=== PATIENT | female | born 1935 | race Caucasian/White ===

== ENCOUNTER 2017-08-05 12:15 | Inpatient (IN) | payer MEDICARE, BC ==
--- NOTE | 2017-08-05 12:21 | ED ---
General Adult HPI - General Stated complaint: Altered Mental Status Time Seen by Provider: 08/05/17 12:18 Source: RN notes reviewed, old records reviewed - History of Present Illness Initial comments: This is a 81-year-old female here for evaluation. Patient coming in for eval duration of unresponsiveness. Patient is medical history significant for dementia, but usually is fully interactive. Been going downhill for a few days with a recent fall decreased appetite last night. Today symptoms are much worse this patient didn't want a function in her normal daily environment. The patient is unable to give history history of patient's chart and transfer paper work - Related Data Home Medications Medication Instructions Recorded Confirmed ALPRAZolam [Xanax] 0.5 mg PO TID 08/05/17 08/05/17 Aspirin EC [Ecotrin Low Dose] 81 mg PO HS 08/05/17 08/05/17 Calcium Carbonate [Calcium] 600 mg PO DAILY 08/05/17 08/05/17 Gabapentin [Neurontin] 300 mg PO DAILY 08/05/17 08/05/17 HYDROcodone/APAP 10-325MG [[place] 1 tab PO TID PRN 08/05/17 08/05/17 10-325] Ibuprofen [Motrin] 600 mg PO BID 08/05/17 08/05/17 Memantine HCl/Donepezil HCl 1 cap PO DAILY 08/05/17 08/05/17 [Namzaric 28 mg-10 mg Capsule] Metoprolol Succinate (ER) [Toprol 25 mg PO DAILY 08/05/17 08/05/17 Xl] Multivitamins, Thera [Multivitamin 1 tab PO DAILY 08/05/17 08/05/17 (formulary)] Omeprazole 20 mg PO DAILY 08/05/17 08/05/17 Ranitidine HCl [Zantac] 150 mg PO DAILY@1600 08/05/17 08/05/17 amLODIPine [Norvasc] 5 mg PO DAILY 08/05/17 08/05/17 busPIRone HCL 15 mg PO TID 08/05/17 08/05/17 traZODone HCL [Desyrel] 50 mg PO HS 08/05/17 08/05/17 Allergies Allergy/AdvReac Type Severity Reaction Status Date / Time No Known Allergies Allergy Unverified 08/05/17 13:10 Review of Systems ROS Statement: Those systems with pertinent positive or pertinent negative responses have been documented in the HPI. ROS Other: All systems not noted in ROS Statement are negative. General Exam General appearance: alert, in no apparent distress, anxious Head exam: Present: atraumatic, normocephalic, normal inspection Eye exam: Present: normal appearance, PERRL, EOMI. Absent: scleral icterus, conjunctival injection, periorbital swelling ENT exam: Present: normal exam, mucous membranes moist Neck exam: Present: normal inspection. Absent: tenderness, meningismus, lymphadenopathy Respiratory exam: Present: normal lung sounds bilaterally. Absent: respiratory distress, wheezes, rales, rhonchi, stridor Cardiovascular Exam: Present: regular rate, normal rhythm, normal heart sounds. Absent: systolic murmur, diastolic murmur, rubs, gallop, clicks GI/Abdominal exam: Present: soft, normal bowel sounds. Absent: distended, tenderness, guarding, rebound, rigid Extremities exam: Present: normal inspection, full ROM, normal capillary refill. Absent: tenderness, pedal edema, joint swelling, calf tenderness Back exam: Present: normal inspection Neurological exam: Present: alert, oriented X3, CN II-XII intact Psychiatric exam: Present: normal affect, normal mood Skin exam: Present: warm, dry, intact, normal color. Absent: rash Course Vital Signs 08/05/17 08/05/17 08/05/17 12:17 13:04 14:00 Temperature 99.9 F H Pulse Rate 104 H 101 H 99 Respiratory 18 16 12 Rate Blood Pressure 115/57 121/59 O2 Sat by Pulse 88 L 91 L Oximetry - Reevaluation(s) Reevaluation #1: 08/05/17 14:58 Spoke patient's family regarding clinical condition, the erupted regarding prognosis. Questions are answered Reevaluation #2: 08/05/17 14:59 Patient showing mild improvement clinically likely just secondary to IV hydration EKG Findings - EKG Comments: EKG Findings:: EKG shows normal sinus Castaneda him a copula 56, QRS 74, QTC 426 Medical Decision Making - Medical Decision Making 9-year-old female the ER for evaluation. Altered mental status. Patient is found to have bowel perforation, patient also with pneumonia likely aspirational , patient to be admitted for cardiopulmonary resuscitation and hemodynamic monitoring. - Lab Data Result diagrams: 08/05/17 12:50 08/05/17 12:50 Lab Results 08/05/17 08/05/17 08/05/17 Range/Units 12:50 12:50 12:50 WBC 9.9 (3.8-10.6) k/uL RBC 3.74 L (3.80-5.40) m/uL Hgb 11.6 (11.4-16.0) gm/dL Hct 35.5 (34.0-46.0) % MCV 94.8 (80.0-100.0) fL MCH 31.0 (25.0-35.0) pg MCHC 32.7 (31.0-37.0) g/dL RDW 14.1 (11.5-15.5) % Plt Count 312 (150-450) k/uL Neutrophils % [employer]SEMBLING F[employer]RIC[employer] Neutrophils % (Manual) 80 % Band Neutrophils % 12 % Lymphocytes % ASSEMBLING FABRICATOR Lymphocytes % (Manual) 5 % Monocytes % ASSEMBLING FABRICATOR Monocytes % (Manual) 2 % Eosinophils % ASSEMBLING FABRICATOR Basophils % ASSEMBLING FABRICATOR Metamyelocytes % 2 % Neutrophils # ASSEMBLING FABRICATOR Neutrophils # (Manual) 9.10 H (1.3-7.7) k/uL Lymphocytes # ASSEMBLING FABRICATOR Lymphocytes # (Manual) 0.50 L (1.0-4.8) k/uL Monocytes # ASSEMBLING FABRICATOR Monocytes # (Manual) 0.20 (0-1.0) k/uL Eosinophils # ASSEMBLING FABRICATOR Basophils # ASSEMBLING FABRICATOR Metamyelocytes # (Man) 0.20 H (0) k/uL Nucleated RBCs 0 (0-0) /100 WBC Manual Slide Review Performed Toxic Vacuolation Present PT (9.0-12.0) sec INR (<1.2) APTT (22.0-30.0) sec Sodium 135 L (137-145) mmol/L Potassium 4.1 (3.5-5.1) mmol/L Chloride 102 (98-107) mmol/L Carbon Dioxide 21 L (22-30) mmol/L Anion Gap 12 mmol/L BUN 31 H (7-17) mg/dL Creatinine 0.88 (0.52-1.04) mg/dL Est GFR (MDRD) Af Amer >60 (>60 ml/min/1.73 sqM) Est GFR (MDRD) Non-Af >60 (>60 ml/min/1.73 sqM) Glucose 121 H (74-99) mg/dL Plasma Lactic Acid Bennie (0.7-2.0) mmol/L Calcium 8.8 (8.4-10.2) mg/dL Phosphorus 3.8 (2.5-4.5) mg/dL Magnesium 2.2 (1.6-2.3) mg/dL Total Bilirubin 0.5 (0.2-1.3) mg/dL AST 34 (14-36) U/L ALT 33 (9-52) U/L Alkaline Phosphatase 83 (38-126) U/L Total Creatine Kinase 730 H (30-135) U/L CK-MB (CK-2) 1.6 (0.0-2.4) ng/mL CK-MB (CK-2) Rel Index 0.2 Troponin I <0.012 (0.000-0.034) ng/mL Total Protein 5.7 L (6.3-8.2) g/dL Albumin 3.0 L (3.5-5.0) g/dL TSH 0.552 (0.465-4.680) mIU/L 08/05/17 08/05/17 Range/Units 12:50 12:50 WBC (3.8-10.6) k/uL RBC (3.80-5.40) m/uL Hgb (11.4-16.0) gm/dL Hct (34.0-46.0) % MCV (80.0-100.0) fL MCH (25.0-35.0) pg MCHC (31.0-37.0) g/dL RDW (11.5-15.5) % Plt Count (150-450) k/uL Neutrophils % Neutrophils % (Manual) % Band Neutrophils % % Lymphocytes % Lymphocytes % (Manual) % Monocytes % Monocytes % (Manual) % Eosinophils % Basophils % Metamyelocytes % % Neutrophils # Neutrophils # (Manual) (1.3-7.7) k/uL Lymphocytes # Lymphocytes # (Manual) (1.0-4.8) k/uL Monocytes # Monocytes # (Manual) (0-1.0) k/uL Eosinophils # Basophils # Metamyelocytes # (Man) (0) k/uL Nucleated RBCs (0-0) /100 WBC Manual Slide Review Toxic Vacuolation PT 10.1 (9.0-12.0) sec INR 1.0 (<1.2) APTT 23.7 (22.0-30.0) sec Sodium (137-145) mmol/L Potassium (3.5-5.1) mmol/L Chloride (98-107) mmol/L Carbon Dioxide (22-30) mmol/L Anion Gap mmol/L BUN (7-17) mg/dL Creatinine (0.52-1.04) mg/dL Est GFR (MDRD) Af Amer (>60 ml/min/1.73 sqM) Est GFR (MDRD) Non-Af (>60 ml/min/1.73 sqM) Glucose (74-99) mg/dL Plasma Lactic Acid Bennie 1.3 (0.7-2.0) mmol/L Calcium (8.4-10.2) mg/dL Phosphorus (2.5-4.5) mg/dL Magnesium (1.6-2.3) mg/dL Total Bilirubin (0.2-1.3) mg/dL AST (14-36) U/L ALT (9-52) U/L Alkaline Phosphatase (38-126) U/L Total Creatine Kinase (30-135) U/L CK-MB (CK-2) (0.0-2.4) ng/mL CK-MB (CK-2) Rel Index Troponin I (0.000-0.034) ng/mL Total Protein (6.3-8.2) g/dL Albumin (3.5-5.0) g/dL TSH (0.465-4.680) mIU/L - Radiology Data Radiology results: report reviewed (Chest x-ray shows likely pneumoperitoneal, x -ray left elbow and pelvis are negative for traumatic injury CT brace he's been officials are negative for traumatic injury, CD-ROM pelvis does show pneumoperitoneal also shows pneumonia likely aspirational), image reviewed Critical Care Time Critical Care Time: Yes Total Critical Care Time: 31 Disposition Clinical Impression: Altered mental status, Pneumoperitoneum, Aspiration pneumonia, Dehydration Disposition: ADMITTED IP TO THIS [facility] Condition: Serious Referrals: Jeff Hicks MD [Primary Care Provider] - 1-2 days
[2017-08-05] MEDS ORDERED: SODIUM CHLORIDE 0.9% 500 ML IV STA ×2 (12:37→13:18)
[2017-08-05] MEDS ORDERED: SODIUM CHLORIDE 0.9% 1,000 ML IV STA ×2 (12:37→13:18)
[2017-08-05 13:16] LABS: CH 31.7; CHCM 33.6; HCT 35.5 % (34.0-46.0); HDW 2.28; HGB 11.6 gm/dL (11.4-16.0); Immature Gran Flag Marked; MCHC 32.7 g/dL (31.0-37.0); MCV 94.8 fL (80.0-100.0); Mean Platelet Volume 7.3; RBC 3.74 m/uL (3.80-5.40); RDW 14.1 % (11.5-15.5); WBC 9.9 k/uL (3.8-10.6); WBC (Perox) 11.42
[2017-08-05 13:29] LABS: Partial Thromboplastin Time 23.7 sec (22.0-30.0); Prothrombin Time 10.1 sec (9.0-12.0)
[2017-08-05 13:32] LABS: ALT 33 U/L (9-52); AST 34 U/L (14-36); Alkaline Phosphatase 83 U/L (38-126); Anion Gap 12 mmol/L; Blood Urea Nitrogen 31 mg/dL (7-17); Calcium 8.8 mg/dL (8.4-10.2); Carbon Dioxide 21 mmol/L (22-30); Chloride 102 mmol/L (98-107); Glucose 121 mg/dL (74-99); Magnesium 2.2 mg/dL (1.6-2.3); Non-African American GFR(MDRD) >60 (>60 ml/min/1.73 sqM); Phosphorous 3.8 mg/dL (2.5-4.5); Potassium 4.1 mmol/L (3.5-5.1); Sodium 135 mmol/L (137-145); Total Bilirubin 0.5 mg/dL (0.2-1.3); Total Protein 5.7 g/dL (6.3-8.2)
[2017-08-05] MEDS ORDERED: RX INFO: IV CONTRAST WAS GIVEN 1 EACH MISC MISCELLANE PRN (13:32)
[2017-08-05] MEDS ORDERED: AMPICILLIN-SULBACTAM 3 GM in SODIUM CHLORIDE 0.9% 100 ML IVPB STA (13:33)
--- NOTE | 2017-08-05 13:35 | XR ---
EXAMINATION TYPE: XR chest 2V DATE OF EXAM: 08/05/2017 COMPARISON: Prior chest x-ray 01/10/2014 HISTORY: Weakness TECHNIQUE: Frontal and lateral views of the chest are obtained. FINDINGS: The heart is enlarged. Postop changes are noted in the left axilla. No pneumothorax or ple ural effusion. Airspace disease is present in the right lower lobe. Free air noted beneath the right hemidiaphragm. Pulmonary vascularity and rod not significantly changed accounting for rotation. IMPRESSION: Findings may be indicative of pneumoperitoneum. Results relayed to rogelio Roldan at the time of interpretation. Possible right lower lobe pneumonia.
--- NOTE | 2017-08-05 13:36 | XR ---
Left elbow HISTORY: Trauma and pain 3 views of the left elbow Bone mineralization, joint spaces and alignment are maintained. No evident joint effusion. IMPRESSION: No acute fracture or dislocation, follow-up as indicated.
--- NOTE | 2017-08-05 13:36 | XR ---
AP pelvis HISTORY: Altered mental status Single frontal view of the pelvis No comparisons Surgical clips present in the right hemiabdomen. Suspect spinal curvature, degenerative disc changes in the lower lumbar spine. Probable phleboliths in the pelvis. Alignment, joint spaces, bone minerali zation is normal. IMPRESSION: No acute fracture or dislocation.
[2017-08-05 13:48] LABS: Add Differential Manual Differential
[2017-08-05 13:50] LABS: Creatine Kinase 730 U/L (30-135)
[2017-08-05 13:57] LABS: Band Neutrophils % 12 %; Metamyelocytes % 2 %; Nucleated Red Blood Cells 0 /100 WBC (0-0); Total Cells Counted 200
[2017-08-05 13:58] LABS: Manual Review Performed; Toxic Vacuolation Present
[2017-08-05 14:03] LABS: Creatine Kinase MB 1.6 ng/mL (0.0-2.4); Troponin I <0.012 ng/mL (0.000-0.034)
--- NOTE | 2017-08-05 14:47 | CT ---
EXAMINATION TYPE: CT brain miguel angel sebastian DATE OF EXAM: 08/05/2017 COMPARISON: NONE HISTORY: altered mental status/ab pain. CT DLP: 1383.[address] of the brain was performed. The ventricles, basal cisterns and sulci overlying the cerebral convexities demonstrate mild enlargem ent. There is no evidence for intracranial hemorrhage or sulcal effacement. There is decreased attenuatio n about the periventricular white matter and deep white matter of both cerebral hemispheres, compatib le with chronic small vessel ischemia. No mass effects are seen. If symptoms persist consider MRI. Osseous calvarium is intact. IMPRESSION: 1. Age related atrophic and chronic small vessel ischemic change without acute intracranial process seen at this time. CT Cervical Spine: Unenhanced CT of the cervical spine was performed with bone and soft tissue window settings submitted . Coronal and sagittal reconstruction is obtained. There is normal alignment and prevertebral soft tissues. No evidence for acute cervical fracture . Scattered degenerative disc disease and spondylosis. Right upper lobe infiltrate is noted. IMPRESSION: 1. No evidence for acute fracture or subluxation of the cervical spine. 2. Right upper lobe infiltrate
--- NOTE | 2017-08-05 14:48 | CT ---
EXAMINATION TYPE: CT facial bones wo con DATE OF EXAM: 08/05/2017 COMPARISON: MRI 12/12/2014. HISTORY: 81-year-old female confusion, altered mental status/ab pain. TECHNIQUE: Contiguous axial scanning of the facial bones without IV contrast. Coronal and sagittal re constructions performed. CT DLP: 440.70 mGycm Automated exposure control for dose reduction was used. FINDINGS: The brain will be reported separately. The paranasal sinuses are clear. No facial bone, nasal bone, or orbital fracture is seen. There are distended bilateral superior ophthalmic veins; no proptosis is seen. Globes appear intact. The venous distention appears stable from 2014 MRI. IMPRESSION: 1. NO ACUTE FACIAL BONE FRACTURE. 2. NONSPECIFIC DISTENTION OF THE SUPERIOR OPHTHALMIC VEINS ON BOTH SIDES APPEARS TO BE A CHRONIC FIND ING, STABLE FROM 12/12/2014. NO PROPTOSIS. FINDINGS COULD REFLECT INTRAORBITAL VARICES. 3. BRAIN REPORTED SEPARATELY.
--- NOTE | 2017-08-05 14:51 | CT ---
EXAMINATION TYPE: CT abdomen pelvis w con DATE OF EXAM: 08/05/2017 COMPARISON: Chest x-ray same date HISTORY: altered mental status/ab pain. CT DLP: 643.30 mGycm Automated exposure control for dose reduction was used. TECHNIQUE: Helical acquisition of images from the lung bases through the pelvis have been completed. CONTRAST: Performed without Oral Contrast and with IV Contrast, patient injected with 100 mL of Omnipaque 300. FINDINGS: There is a hiatal hernia present. LUNG BASES: Patchy bilateral airspace disease present in the lung bases. AORTA: No significant abnormality is appreciated. LIVER/GB: Patient is post cholecystectomy. Liver shows no mass. Liver is enlarged.. PANCREAS: No significant abnormality is seen. SPLEEN: No significant abnormality is seen. ADRENALS: No significant abnormality is seen. KIDNEYS: No significant abnormality is seen. REPRODUCTIVE ORGANS: No significant abnormality is seen BOWEL: There are multiple fluid-filled loops of small bowel which appear distended. No evident obstr uction however. Axial image 48 shows some questionable inflammatory change, small interloop abscess o r local perforation may be present at this level. Extensive diverticular change present in the sigmoi d colon.. FREE AIR: Is present as noted on chest x-ray, there is air noted within the pelvis that appears with in the mesentery, free air extends along the region deep to the anterior abdominal wall about the bren er, underneath the hemidiaphragms. There is air in Morison's pouch.. ASCITES: None visible. PELVIC ADENOPATHY: None visualized. RETROPERITONEAL ADENOPATHY: No Retroperitoneal Adenopathy visible. URINARY BLADDER: No significant abnormality is seen. OSSEOUS STRUCTURES: No significant abnormality is seen. IMPRESSION: PNEUMOPERITONEUM HAS DESCRIBED ON CHEST X-RAY REPORT, BILATERAL LOWER LOBE PNEUMONIA. THERE MAY BE UN DERLYING ENTERITIS, SMALL BOWEL PERFORATION DESCRIBED. PNEUMOPERITONEUM CALLED TO DR. EATON, [facility] ED ON CHEST X-RAY REPORT AT AN EARLIER TIME
[2017-08-05] MEDS ORDERED: IPRATROPIUM-ALBUTEROL 3 ML NEB INHALATION STA (14:56)
[2017-08-05] MEDS ORDERED: IPRATROPIUM-ALBUTEROL 3 ML NEB INHALATION PRN (14:56)
[2017-08-05 15:34] LABS: Appearance,Urine Clear (Clear); Bilirubin,Urine Negative (Negative); Glucose,Urine (UA) Negative (Negative); Ketones,Urine 1+ (Negative); Leukocyte Esterase,Urine Moderate (Negative); Mucus,Urine Rare /hpf; Nitrite,Urine Negative (Negative); PH, Urine 5.5 (5.0-8.0); Particle Count 7843; Protein,Urine Trace (Negative); RBC,Urine 2 /hpf (0-5); UA Billing (MACRO vs. MICRO) MICRO; Urobilinogen,Urine <2.0 mg/dL (<2.0); WBC,Urine 12 /hpf (0-5)
[2017-08-05 16:00] LABS: Specific Gravity,Urine >1.049 (1.001-1.035)
--- NOTE | 2017-08-05 18:04 | HP ---
HISTORY AND PHYSICAL ATTENDING PHYSICIAN: Dr. Praveena Hicks. CHIEF COMPLAINT: Obtundation. HISTORY OF PRESENT ILLNESS: This 81-year-old female was brought in the emergency room by the family because of altered mental status. The patient on Thursday night had fallen, unobserved. The patient's daughter saw the patient next day morning and yesterday she had a fairly good day. The patient actually was up and had makeup done. She did have a pizza at night. No vomiting. Denies any abdominal pains. The patient, however, again fell during this night and in view of this the patient was seen by the daughter director transportation and noted that the patient was having more lethargy and drowsiness. In view of this, the patient was brought in the emergency room. In the ER, the patient is evaluated with multiple radiologic evaluations starting from skull, C-spine, chest x-ray. The chest x-ray suggested the possibility of pneumoperitoneum and pneumonias bilateral. The patient has had no cough, congestion, or symptoms of fever, chills according to the daughter. In view of that, the patient has had abdominal CT suggestive of pneumoperitoneum with possible suspicion of a small bowel perforation. The patient does take both Motrin and [place] for pain and baby aspirin. The patient has no other history of alcohol use. She does use Tums off and on. She is also on Zantac daily. The patient had no abdominal injury. She did complain of back pain yesterday. She does have some chronic back pain. The daughter thought this was just the usual pain. The patient had some increased pain yesterday. No reported fever, chills, nausea, vomiting, diarrhea, or any bleeding rectally. 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 This has been more than 15 years now. She has had no recurrence. She does exhibit dementia. She has decreased short-term memory. 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 Past medical history also significant for hypertension. SOCIAL HISTORY: Patient is . The patient has a daughter who helps her. PAST SURGICAL HISTORY: Significant for breast implants. PERSONAL HISTORY: Nonsmoker. No alcohol. ALLERGIES: None known. MEDICATIONS: 1. Include trazodone 50 mg at q.h.s. 2. Buspirone 15 mg t.i.d. 3. Norvasc 5 mg daily. 4. Ranitidine 150 mg daily at q.h.s. 5. Omeprazole 20 mg every morning. 6. Multivitamins daily. 7. Metoprolol 25 mg daily. 8. Namenda and Aricept combination of 20/10 mg capsule 1 daily. 9. Motrin 600 p.o. b.i.d. 10.Hydrocodone 10/325 t.i.d. 11.Gabapentin 300 mg daily. 12.Calcium carbonate daily. 13.Aspirin 81 mg daily. 14.Xanax 0.5 p.r.n. t.i.d. REVIEW OF SYSTEM: Limited. The patient is fairly sleepy. Neuro denies any headaches or dizziness. Psych: History of dementia. Cardiac denies chest pain. Respiratory: Denies shortness of breath, cough. GI: No reported nausea, vomiting, abdominal pain, diarrhea. Does have some abdominal pain. : No symptoms of dysuria, hematuria. Extremities: No pain. Constitutional no fever or chills. PHYSICAL EXAMINATION: Elderly female, 81 at present, who appears younger than stated age, in no distress. She is sleeping but arousable. Vital signs reveals temperature 98.9, pulse 104, respirations 20, blood pressure 132/60, pulse ox 92% on 2 L. HEENT: Normocephalic. NECK: Supple. No JVD. Pupils are reactive. Nostrils are clear. Oral cavity is dry. No thyromegaly. Chest examination: Rhonchi present at the right base. Otherwise, lung contreras clear. Cardiac distant. HEART: Sounds S1, S2 with no gallops or murmurs. Abdomen mildly protuberant and tender with guarding, specifically right hemiabdomen with rebound tenderness present. No bold rigidity. Rectal examination reveals minimal stool. Normal color. No tenderness. Extremities reveal no edema. Good pulses both upper lower extremities. Neurological is lethargic, arousable to immediate recognition on recognizing who I am. Moves both upper lower extremities well, with plantar reflexes equivocal bilaterally. X-RAY ASSESSMENT: Was x-rays as mentioned above, CT of the abdomen with patient has pneumoperitoneum, possible small perforation in the small bowel. Chest x-ray suggests right lower lobe pneumonia not ruled out. There is airspace disease. His pulmonary vasculature is okay. CT of the brain shows small-vessel disease. LABORATORY ASSESSMENT: Reveals CBC reveals a normal hemoglobin, white count, platelet count, neutrophils elevated. Sodium 135, potassium 4.1, chloride 102, CO2 content 21, anion gap 12, BUN 31, creatinine 0.88, glucose 121. CPK 130 with negative troponins. Albumin 3.0. Urine specific gravity greater than 1.049, trace protein, 1+ ketones and leukocyte esterase. I suspect the patient's specific gravity is greater than 1.049 due to the IV contrast that was used earlier. ASSESSMENT: 1. Acute abdomen with suggestion of the risk of perforation. 2. Possibility of right lower lobe aspiration pneumonia, not ruled out. 3. History of dementia, Alzheimer's type. 4. History of hypertension. 5. Remote history of carcinoma of the breast. PLAN: Continue present medical regimen. The patient has had a previous cholecystectomy. The patient condition discussed with the patient. Prognosis guarded and daughter mostly to the daughter as patient has some dementia. Prognosis remains guarded. We will continue present medical regimen. The patient is DNR in case of cardiac or cardiopulmonary arrest. However, the patient's condition is guarded. MMODL / IJN: [id number] /
--- NOTE | 2017-08-05 18:13 | P.GSCN ---
History of Present Illness Consult date: 08/05/17 Reason for Consult: Abdominal pain/ altered mental status Requesting physician: Jeff Hicks History of present illness: A 81-year-old lady who has dementia. She is unable to answer questions more so the history was obtained from the daughter. The patient started having a decrease in mental function which was sudden in onset of the last few days. Furthermore she ended up being bedridden and unable to ambulate and being very tired and responsive. During this period of time due to episodes patient tried to get out of bed and she fell down. Both of those times resulted in abrasions. There has been no history of nausea or vomiting. There is no history of diarrhea. She did not complain of any pain herself. There is no known urinary problem. No known recent cardiac issue. Much of the history is obtained by the patient's daughter since she is unable to answer any questions and is somnolent at this time. Review of Systems ROS unobtainable: due to mental status Past Medical History Past Medical History: Cancer, CVA/TIA, Dementia, Eye Disorder, GERD/Reflux, GI Bleed, Hypertension, Memory Impairment, Osteoarthritis (OA) Additional Past Medical History / Comment(s): tia's, macular degeneration.ibs, lt breast cancer had sx and chemo-1999 History of Any Multi-Drug Resistant Organisms: None Reported Past Surgical History: Bladder Surgery, Cholecystectomy, Hysterectomy, Tubal Ligation Additional Past Surgical History / Comment(s): lap choley, jaleesa cataracts rmoved- lens implants. cyst removedf rom epiglottis, colonoscopy, lt breast bx-lt masectomy 1999,rectocele,cystocele Past Anesthesia/Blood Transfusion Reactions: No Reported Reaction Smoking Status: Former smoker - Past Family History Father History Unknown: Yes Additional Family Medical History / Comment(s): he left when pt was age 5. Mother Family Medical History: COPD, CVA/TIA Additional Family Medical History / Comment(s): emphysema, was heavy smoker, diverticulitis Medications and Allergies Home Medications Medication Instructions Recorded Confirmed Type ALPRAZolam [Xanax] 0.5 mg PO TID 08/05/17 08/05/17 History Aspirin EC [Ecotrin Low Dose] 81 mg PO HS 08/05/17 08/05/17 History Calcium Carbonate [Calcium] 600 mg PO DAILY 08/05/17 08/05/17 History Gabapentin [Neurontin] 300 mg PO DAILY 08/05/17 08/05/17 History HYDROcodone/APAP 10-325MG [[place] 1 tab PO TID PRN 08/05/17 08/05/17 History 10-325] Ibuprofen [Motrin] 600 mg PO BID 08/05/17 08/05/17 History Memantine HCl/Donepezil HCl 1 cap PO DAILY 08/05/17 08/05/17 History [Namzaric 28 mg-10 mg Capsule] Metoprolol Succinate (ER) [Toprol 25 mg PO DAILY 08/05/17 08/05/17 History Xl] Multivitamins, Thera [Multivitamin 1 tab PO DAILY 08/05/17 08/05/17 History (formulary)] Omeprazole 20 mg PO DAILY 08/05/17 08/05/17 History Ranitidine HCl [Zantac] 150 mg PO DAILY@1600 08/05/17 08/05/17 History amLODIPine [Norvasc] 5 mg PO DAILY 08/05/17 08/05/17 History busPIRone HCL 15 mg PO TID 08/05/17 08/05/17 History traZODone HCL [Desyrel] 50 mg PO HS 08/05/17 08/05/17 History Allergies Allergy/AdvReac Type Severity Reaction Status Date / Time No Known Allergies Allergy Unverified 08/05/17 13:10 Surgical - Exam Vital Signs Temp Pulse Resp BP Pulse Ox 99.9 F H 104 H 18 115/57 88 L 08/05/17 12:17 08/05/17 12:17 08/05/17 12:17 08/05/17 12:17 08/05/17 12:17 - General well nourished, moderate distress - ENT normal pinna, normal nares, normal mucosa - Neck trachea midline - Respiratory normal expansion - Cardiovascular Warm extremities Rhythm: regular - Abdomen Pager patient has a distended abdomen which is tender with guarding and rebound. She has diffuse peritonitis. Abdomen: tender, guarding, rigid, rebound, distended - Integumentary no rash - Psychiatric no oriented to time, no oriented to person, no oriented to place, speech is normal, no memory intact Results - Labs 08/05/17 12:50 08/05/17 12:50 Abnormal Lab Results - Last 24 Hours (Table) 08/05/17 08/05/17 08/05/17 Range/Units 12:50 12:50 12:50 RBC 3.74 L (3.80-5.40) m/uL Neutrophils # (Manual) 9.10 H (1.3-7.7) k/uL Lymphocytes # (Manual) 0.50 L (1.0-4.8) k/uL Metamyelocytes # (Man) 0.20 H (0) k/uL Sodium 135 L (137-145) mmol/L Carbon Dioxide 21 L (22-30) mmol/L BUN 31 H (7-17) mg/dL Glucose 121 H (74-99) mg/dL Total Creatine Kinase 730 H (30-135) U/L Total Protein 5.7 L (6.3-8.2) g/dL Albumin 3.0 L (3.5-5.0) g/dL Ur Specific [place] (1.001-1.035) Urine Protein (Negative) Urine Ketones (Negative) Urine Blood (Negative) Ur Leukocyte Esterase (Negative) Urine WBC (0-5) /hpf Urine Mucus (None) /hpf 08/05/17 Range/Units 15:25 RBC (3.80-5.40) m/uL Neutrophils # (Manual) (1.3-7.7) k/uL Lymphocytes # (Manual) (1.0-4.8) k/uL Metamyelocytes # (Man) (0) k/uL Sodium (137-145) mmol/L Carbon Dioxide (22-30) mmol/L BUN (7-17) mg/dL Glucose (74-99) mg/dL Total Creatine Kinase (30-135) U/L Total Protein (6.3-8.2) g/dL Albumin (3.5-5.0) g/dL Ur Specific [place] >1.049 H (1.001-1.035) Urine Protein Trace H (Negative) Urine Ketones 1+ H (Negative) Urine Blood Trace H (Negative) Ur Leukocyte Esterase Moderate H (Negative) Urine WBC 12 H (0-5) /hpf Urine Mucus Rare H (None) /hpf Diabetes panel 08/05/17 Range/Units 12:50 Sodium 135 L (137-145) mmol/L Potassium 4.1 (3.5-5.1) mmol/L Chloride 102 (98-107) mmol/L Carbon Dioxide 21 L (22-30) mmol/L BUN 31 H (7-17) mg/dL Creatinine 0.88 (0.52-1.04) mg/dL Glucose 121 H (74-99) mg/dL Calcium 8.8 (8.4-10.2) mg/dL AST 34 (14-36) U/L ALT 33 (9-52) U/L Alkaline Phosphatase 83 (38-126) U/L Total Protein 5.7 L (6.3-8.2) g/dL Albumin 3.0 L (3.5-5.0) g/dL Thyroid panel 08/05/17 Range/Units 12:50 TSH 0.552 (0.465-4.680) mIU/L Calcium panel 08/05/17 Range/Units 12:50 Calcium 8.8 (8.4-10.2) mg/dL Phosphorus 3.8 (2.5-4.5) mg/dL Albumin 3.0 L (3.5-5.0) g/dL Pituitary panel 08/05/17 Range/Units 12:50 Sodium 135 L (137-145) mmol/L Potassium 4.1 (3.5-5.1) mmol/L Chloride 102 (98-107) mmol/L Carbon Dioxide 21 L (22-30) mmol/L BUN 31 H (7-17) mg/dL Creatinine 0.88 (0.52-1.04) mg/dL Glucose 121 H (74-99) mg/dL Calcium 8.8 (8.4-10.2) mg/dL TSH 0.552 (0.465-4.680) mIU/L Adrenal panel 08/05/17 Range/Units 12:50 Sodium 135 L (137-145) mmol/L Potassium 4.1 (3.5-5.1) mmol/L Chloride 102 (98-107) mmol/L Carbon Dioxide 21 L (22-30) mmol/L BUN 31 H (7-17) mg/dL Creatinine 0.88 (0.52-1.04) mg/dL Glucose 121 H (74-99) mg/dL Calcium 8.8 (8.4-10.2) mg/dL Total Bilirubin 0.5 (0.2-1.3) mg/dL AST 34 (14-36) U/L ALT 33 (9-52) U/L Alkaline Phosphatase 83 (38-126) U/L Total Protein 5.7 L (6.3-8.2) g/dL Albumin 3.0 L (3.5-5.0) g/dL - Imaging Additional studies: Dionisio of the abdomen and pelvis was reviewed and revealed free air in the abdomen without any obvious site of perforation Assessment and Plan (1) Altered mental status Status: Acute (2) Aspiration pneumonia Status: Acute (3) Dehydration Status: Acute (4) Pneumoperitoneum Status: Acute Plan: She was 81-year-old lady who has a DO NOT RESUSCITATE order. She presented with altered mental status which is likely due to sepsis from an abdominal source. She does have diffuse peritonitis on clinical exam. Since she is unable to answer her questions I have had a detailed discussion with the patient 's daughter and son. I explained to the patient and family that this is high risk surgery which would require abdominal exploration possible colostomy possible injury possible bowel resection. There were explained to them that I cannot guarantee not doing colostomy for perforation. There I have discussed the detail after patient's and different options that we have such as laparoscopic exploration and washout with drain placement alone, appendectomy, simple bowel resection and reanastomosis if possible. However I have explained to them that there is a chance that this may be coming from the large bowel and may not truly be amenable to simple washout and required colostomy. At this time the patient's daughter is very perturbed and in no way once any kind of colostomy. I had this discussion in the presence of the patient's son as well. At this time both of them again and discuss whether to forego the DO NOT RESUSCITATE and proceed with any kind of surgery are not. Explained to them that we could also try to do broad-spectrum antibiotics overnight we will however lose that this 24-hour window but there is a chance that she may improve with broad-spectrum antibiotics alone. In any case her overall prognosis remains guarded and very high risk for mortality as well as morbidity.
[2017-08-05] MEDS ORDERED: IV FLUID CONTINUATION 1,000 ML IV ONE (19:56)
[2017-08-05] MEDS: SODIUM CHLORIDE 0.9% 1,000 ML IV SCH (19:57)
[2017-08-05] MEDS ORDERED: NEOSTIGMINE 1 MG/ML 10 ML VIAL ONE (20:08)
[2017-08-05] MEDS ORDERED: fentaNYL (PF) 50 MCG/ML 2 ML AMP ONE (20:08)
[2017-08-05] MEDS ORDERED: SUCCINYLCHOLINE CHLORIDE 100 MG/5 ML SYR IV ONE (20:08)
[2017-08-05] MEDS ORDERED: PHENYLEPHRINE-0.9% NACL SYG 1 MG/10 ML SYRINGE ONE (20:08)
[2017-08-05] MEDS ORDERED: PROPOFOL 10 MG/ML 20 ML VIAL IV ONE (20:08)
[2017-08-05] MEDS ORDERED: HEPARIN SODIUM,PORCINE 5,000 UNIT/ML 1 ML VIAL ONE (20:08)
[2017-08-05] MEDS ORDERED: GLYCOPYRROLATE 0.2 MG/ML 2 ML VIAL ONE (20:08)
[2017-08-05] MEDS ORDERED: VECURONIUM 10 MG VIAL IV ONE (20:08)
[2017-08-05] MEDS ORDERED: MIDAZOLAM 2 MG/2 ML VIAL ONE (20:08)
[2017-08-05] MEDS ORDERED: ePHEDrine SULFATE/0.9% NACL/PF 50 MG/5 ML SYRINGE IV ONE (20:08)
[2017-08-05] MEDS ORDERED: ONDANSETRON 4 MG/2 ML VIAL ONE (20:08)
[2017-08-05] MEDS: PIPERACILLIN-TAZOBACTAM 3.375 GM in DEXTROSE/WATER 1 50ML.BAG IVPB SCH (20:15)
[2017-08-05] MEDS ORDERED: ceFAZolin 3,000 MG in SODIUM CHLORIDE 0.9% IRRIGATIO 3,000 ML IRRIGATION ONE (20:56)
[2017-08-05] MEDS ORDERED: LACTATED RINGERS 1,000 ML IV ONE (21:01)
--- NOTE | 2017-08-05 22:05 | P.OP ---
Date of Procedure: 08/05/17 Preoperative Diagnosis: Diffuse peritonitis with sepsis Postoperative Diagnosis: Small bowel perforation with interloop abscess. Sigmoid diverticulitis with no obvious perforation. intraabdominal adehsions Perihepatic collection of pus Procedure(s) Performed: Exploratory laparotomy Lysis of adhesions Small bowel resection and anastamosis Wash out of the abdomen. Anesthesia: DEYSI Surgeon: Florentino Rivas Estimated Blood Loss (ml): 50 Pathology: other Condition: stable Disposition: PACU Description of Procedure: Patient is a 81-year-old female who presented with worsening dementia and unresponsiveness. Computed tomography scan of the abdomen and pelvis reveals free air on clinical exam and she had diffuse peritonitis. Due to her diffuse peritonitis and free air on computed tomography scan and recommended a exploratory laparotomy and consent was obtained from the patient's daughter who is the POA. The patient was brought to the operating room placed in supine position given general anesthesia with endotracheal intubation. A Martin catheter was placed. An NG tube was placed. After appropriate timeout of the abdomen was prepped and draped in the usual sterile surgical fashion. Midline incision was made using a 10 blade deep to the skin and subcutis tissue extending from just above the umbilicus to the pubic bone. It was deepened to the skin and subcutis tissue with the help of electrocautery incising the linea alba. Linea alba was incised all the way up to the full length of the incision. There was no obvious purulence at this time. The omentum had pulled down into the pelvis and was adhesed to the large bowel small bowel at multiple points all those adhesions were taken down with the help of electrocautery and LigaSure. Once that was done the small bowel was run from the ligament of Treitz distally and roughly mid ileal point was twisted upon itself and attached with inflammatory adhesions to a knuckle of the sigmoid colon blunt dissection allowed opening up that twist and relieving the connection between the small large bowel. There was no perforation in the large bowel but there was some thickening and edema of the pericolonic wall possibly and diverticuli. No further dissection was done around the colon for risk of perforation. The small bowel itself looks severely inflamed with an abscess pocket between 2 parts of the small bowel. This part of the small bowel and looks severely inflamed was resected after making holes in the mesentery and transecting with 75 ISABEL stapler. The mesentery itself was transected with the help of ligature. The 2 ends of the small bowel didn't brought together in a functional side-to- side anastomosis was created with linear 75 stapler and completed with a TA 50. The entire anastomosis was then imbricated the mesenteric defect was closed with the help of 2-0 Vicryl. This piece of bowel was then handed off the entire bowel was run again and there were no other abnormalities. Stomach was noted to be distended and then the NG was advanced to appropriate position allowing the physician of the stomach. The duodenal bulb looked normal palpation of the lesser sac did not reveal any tenderness or fluid. The ascending transverse descending colon looked normal the appendix looked normal. There was no other inflammatory condition within the pelvis. Due to the way the patient's family desired the large bowel was not resected and at this 0.3 L of antibiotic irrigation was done of the entire abdominal cavity. There was no further perforation noted. There was however some perihepatic collection of pus and this area was thoroughly irrigated. Once irrigation was completed to drain was placed a 19-Icelandic channel drain was placed from the left side into the pelvis and from the right side into the perihepatic area. There was secured into position with 2-0 silk. Midline was closed with running 0 PDS skin was closed with aisha. Prerenal dressing was applied. Patient tolerated the procedure well there were no other complications patient was extubated taken to recovery room in stable but critical condition her prognosis remains guarded.
[2017-08-05] MEDS ORDERED: ONDANSETRON 4 MG/2 ML VIAL IVP PRN (22:06)
[2017-08-05 22:41] LABS: Glucose,Whole Blood 93 mg/dL (75-99)
[2017-08-05] MEDS: D5-0.45% NACL WITH KCL 20MEQ/L 1,000 ML IV SCH (22:43)
[2017-08-05 23:04] LABS: CH 30.2; CHCM 31.1; HCT 38.2 % (34.0-46.0); HDW 2.32; HGB 12.3 gm/dL (11.4-16.0); Hypochromasia Slight; Immature Gran Flag Moderate; MCH 31.4 pg (25.0-35.0); MCHC 32.1 g/dL (31.0-37.0); MCV 97.8 fL (80.0-100.0); Mean Platelet Volume 6.9; RBC 3.91 m/uL (3.80-5.40); RDW 13.5 % (11.5-15.5); WBC 11.9 k/uL (3.8-10.6); WBC (Perox) 12.15
[2017-08-05 23:16] LABS: Anion Gap 11 mmol/L; Blood Urea Nitrogen 19 mg/dL (7-17); Calcium 7.9 mg/dL (8.4-10.2); Carbon Dioxide 17 mmol/L (22-30); Chloride 110 mmol/L (98-107); Glucose 124 mg/dL (74-99); Non-African American GFR(MDRD) >60 (>60 ml/min/1.73 sqM); Potassium 4.1 mmol/L (3.5-5.1); Sodium 138 mmol/L (137-145)
[2017-08-05] MEDS: PANTOPRAZOLE 40 MG/10 ML VIAL IVP SCH (23:34)
[2017-08-05] MEDS: HEPARIN SODIUM,PORCINE 5,000 UNIT/ML 1 ML VIAL SQ SCH (23:34)
[2017-08-05 23:46] LABS: Add Differential Manual Differential
[2017-08-05 23:48] LABS: Band Neutrophils % 6 %; Manual Review Performed; Nucleated Red Blood Cells 0 /100 WBC (0-0); Total Cells Counted 100
[2017-08-06] MEDS: KETOROLAC 30 MG/ML 1 ML VIAL IVP PRN ×2 (01:03→19:38)
[2017-08-06] MEDS: SODIUM CHLORIDE 0.9% 1,000 ML IV SCH ×2 (01:42→12:34)
[2017-08-06 04:32] LABS: CH 31.1; CHCM 32.3; HCT 32.7 % (34.0-46.0); HDW 2.37; HGB 10.5 gm/dL (11.4-16.0); MCH 31.1 pg (25.0-35.0); MCHC 32.1 g/dL (31.0-37.0); Mean Platelet Volume 7.1; RBC 3.37 m/uL (3.80-5.40); RDW 14.3 % (11.5-15.5); WBC 12.1 k/uL (3.8-10.6)
[2017-08-06 04:41] LABS: ALT 27 U/L (9-52); AST 23 U/L (14-36); Alkaline Phosphatase 64 U/L (38-126); Anion Gap 7 mmol/L; Blood Urea Nitrogen 19 mg/dL (7-17); Calcium 7.6 mg/dL (8.4-10.2); Carbon Dioxide 18 mmol/L (22-30); Chloride 113 mmol/L (98-107); Glucose 133 mg/dL (74-99); Magnesium 2.1 mg/dL (1.6-2.3); Non-African American GFR(MDRD) >60 (>60 ml/min/1.73 sqM); Phosphorous 2.7 mg/dL (2.5-4.5); Potassium 4.5 mmol/L (3.5-5.1); Sodium 138 mmol/L (137-145); Total Bilirubin 0.2 mg/dL (0.2-1.3); Total Protein 4.4 g/dL (6.3-8.2)
[2017-08-06] MEDS ORDERED: SODIUM CHLORIDE 0.9% 1,000 ML IV ONE (07:37)
[2017-08-06] MEDS: HEPARIN SODIUM,PORCINE 5,000 UNIT/ML 1 ML VIAL SQ SCH ×2 (08:41→21:04)
[2017-08-06] MEDS: PIPERACILLIN-TAZOBACTAM 3.375 GM in DEXTROSE/WATER 1 50ML.BAG IVPB SCH ×2 (08:41→16:03)
[2017-08-06] MEDS: PANTOPRAZOLE 40 MG/10 ML VIAL IVP SCH ×2 (08:41→21:44)
[2017-08-06] MEDS: D5-0.45% NACL WITH KCL 20MEQ/L 1,000 ML IV SCH ×2 (08:41→21:04)
[2017-08-06] MEDS ORDERED: FAMOTIDINE 20 MG/2 ML VIAL IV SCH (09:00)
[2017-08-06] MEDS: metroNIDAZOLE-NS PMX 500 MG in SALINE 1 100ML.BAG IVPB SCH ×3 (09:03→18:10)
--- NOTE | 2017-08-06 09:19 | P.CNPUL ---
History of Present Illness Consult date: 08/06/17 Reason for consult: abnormal CXR/CT, other Chief complaint: Exploratory laparotomy, small bowel resection, washout, perforated small brielle History of present illness: Consult dated 08/06/2017 This a 81-year-old female brought to the emergency room by the family because of altered mental status. The patient had an unobserved fall. The patient's family so that the the patient the next morning. Subsequent to that, the patient developed lethargy and drowsiness. She was brought to the emergency room where she was evaluated with x-rays and a chest x-ray showed evidence of a pneumoperitoneum. Anyway the patient was taken to the OR. Today's postop day # 1. Dr. Daniels did the surgery. The patient had a small bowel resection and exploratory laparotomy. He will washout and repair of breath small bowel perforation with abscess. The patient's currently in the ICU. Came here not on the ventilator. Currently on O2 at 4 L by nasal cannula and has an IV of dextrose with 0.45 saline with 20 mg potassium at 100 mL an hour. The patient' s urine output has been low and she is feeling a 1 L bolus of fluid. Chest x- ray from August 04 shows pneumoperitoneum. Other than that she's seen doing relatively well. Later today she could probably move out of the ICU. Review of Systems A 14 point review of system is positive for postsurgical abdominal pain. She is not really taking deep breaths. When she takes a deep breath, the belly hurts. Short of that no, she really denies any other complaint. Past Medical History Past Medical History: Cancer, CVA/TIA, Dementia, Eye Disorder, GERD/Reflux, GI Bleed, Hypertension, Memory Impairment, Osteoarthritis (OA) Additional Past Medical History / Comment(s): tia's, macular degeneration.ibs, lt breast cancer had sx and chemo-1999 History of Any Multi-Drug Resistant Organisms: None Reported Past Surgical History: Bladder Surgery, Cholecystectomy, Hysterectomy, Tubal Ligation Additional Past Surgical History / Comment(s): lap choley, jaleesa cataracts rmoved- lens implants. cyst removedf rom epiglottis, colonoscopy, lt breast bx-lt masectomy 1999,rectocele,cystocele Past Anesthesia/Blood Transfusion Reactions: No Reported Reaction Smoking Status: Former smoker - Past Family History Father History Unknown: Yes Additional Family Medical History / Comment(s): he left when pt was age 5. Mother Family Medical History: COPD, CVA/TIA Additional Family Medical History / Comment(s): emphysema, was heavy smoker, diverticulitis Medications and Allergies Home Medications Medication Instructions Recorded Confirmed Type ALPRAZolam [Xanax] 0.5 mg PO TID 08/05/17 08/05/17 History Aspirin EC [Ecotrin Low Dose] 81 mg PO HS 08/05/17 08/05/17 History Calcium Carbonate [Calcium] 600 mg PO DAILY 08/05/17 08/05/17 History Gabapentin [Neurontin] 300 mg PO DAILY 08/05/17 08/05/17 History HYDROcodone/APAP 10-325MG [[place] 1 tab PO TID PRN 08/05/17 08/05/17 History 10-325] Ibuprofen [Motrin] 600 mg PO BID 08/05/17 08/05/17 History Memantine HCl/Donepezil HCl 1 cap PO DAILY 08/05/17 08/05/17 History [Namzaric 28 mg-10 mg Capsule] Metoprolol Succinate (ER) [Toprol 25 mg PO DAILY 08/05/17 08/05/17 History Xl] Multivitamins, Thera [Multivitamin 1 tab PO DAILY 08/05/17 08/05/17 History (formulary)] Omeprazole 20 mg PO DAILY 08/05/17 08/05/17 History Ranitidine HCl [Zantac] 150 mg PO DAILY@1600 08/05/17 08/05/17 History amLODIPine [Norvasc] 5 mg PO DAILY 08/05/17 08/05/17 History busPIRone HCL 15 mg PO TID 08/05/17 08/05/17 History traZODone HCL [Desyrel] 50 mg PO HS 08/05/17 08/05/17 History Allergies Allergy/AdvReac Type Severity Reaction Status Date / Time No Known Allergies Allergy Unverified 08/05/17 13:10 Physical Exam Osteopathic Statement: *. No significant issues noted on an osteopathic structural exam other than those noted in the History and Physical/Consult. Vitals: Vital Signs Temp Pulse Pulse Resp BP BP Pulse Ox 08/06/17 07:00 80 20 109/52 95 08/06/17 06:30 79 19 109/52 96 08/06/17 06:00 80 18 115/54 96 08/06/17 05:30 86 17 115/54 96 08/06/17 05:00 91 18 104/52 96 08/06/17 04:30 83 18 104/52 97 08/06/17 04:00 99 F 85 18 105/49 95 08/06/17 03:30 90 17 105/49 95 08/06/17 03:00 90 16 104/50 96 08/06/17 02:30 82 16 104/50 97 08/06/17 02:00 91 20 132/59 97 08/06/17 01:30 90 19 132/59 98 08/06/17 01:00 91 18 128/64 92 L 08/06/17 00:30 91 21 132/60 93 L 08/06/17 00:00 98.2 F 92 19 128/59 94 L 08/05/17 23:33 91 19 134/60 93 L 08/05/17 23:30 91 18 134/60 92 L 08/05/17 23:00 98.2 F 99 23 128/61 90 L 08/05/17 22:30 110 H 20 130/64 99 08/05/17 22:15 108 H 20 133/66 98 08/05/17 22:00 110 H 16 130/63 99 08/05/17 21:54 97.9 F 116 H 16 134/63 99 08/05/17 19:40 96 18 94 L 08/05/17 16:29 98.5 F 105 H 16 135/68 91 L 08/05/17 15:54 98.9 F 104 H 20 132/60 93 L 08/05/17 15:47 97 08/05/17 15:32 96 08/05/17 15:00 96 18 121/59 91 L 08/05/17 14:00 99 12 121/59 91 L 08/05/17 13:04 101 H 16 08/05/17 12:17 99.9 F H 104 H 18 115/57 88 L Intake and Output 08/05/17 08/06/17 08/06/17 22:59 06:59 14:59 Intake Total 1301 800 100 Output Total 360 475 25 Balance 941 325 75 Intake: IV 1301 800 100 D5-0.45% NaCl with KCl 800 100 20Meq/l 1,000 ml @ 100 mls/hr IV .Q10H [facility] Rx#: [id number] Output: Urine 330 475 25 Estimated Blood Loss 30 Other: Voiding Method Indwelling Catheter Weight 58.2 kg No acute distress, oriented 3. Nasal O2 in place. HEENT examination is grossly unremarkable. Mucous membranes are moist. No oral lesions. Neck supple. Full range of motion. No adenopathy or thyromegaly. Neck veins are flat. Cardiovascular examination reveals regular rhythm rate. S1-S2 normal. No S3- S4 or murmur. Lungs are relatively clear breath sounds are diminished. A few scattered mild rhonchi. No wheezes or crackles. Abdomen is mildly distended. Tender on palpation. No bowel sounds are noted. Extremities are intact. No cyanosis clubbing or edema. Skin without rash. Neurologic examination is brief but nonfocal. Results - Laboratory Findings CBC and BMP: 08/06/17 04:15 08/06/17 04:15 PT/INR, D-dimer PT 10.1 sec (9.0-12.0) 08/05/17 12:50 INR 1.0 (<1.2) 08/05/17 12:50 Abnormal lab findings: Abnormal Labs 08/05/17 08/05/17 08/05/17 12:50 12:50 12:50 WBC RBC 3.74 L Hgb Hct Neutrophils # (Manual) 9.10 H Lymphocytes # (Manual) 0.50 L Metamyelocytes # (Man) 0.20 H Sodium 135 L Chloride Carbon Dioxide 21 L BUN 31 H Glucose 121 H Calcium Total Creatine Kinase 730 H Total Protein 5.7 L Albumin 3.0 L Ur Specific [place] Urine Protein Urine Ketones Urine Blood Ur Leukocyte Esterase Urine WBC Urine Mucus 08/05/17 08/05/17 08/05/17 15:25 22:55 22:55 WBC 11.9 H RBC Hgb Hct Neutrophils # (Manual) 11.50 H Lymphocytes # (Manual) 0.36 L Metamyelocytes # (Man) Sodium Chloride 110 H Carbon Dioxide 17 L BUN 19 H Glucose 124 H Calcium 7.9 L Total Creatine Kinase Total Protein Albumin Ur Specific [place] >1.049 H Urine Protein Trace H Urine Ketones 1+ H Urine Blood Trace H Ur Leukocyte Esterase Moderate H Urine WBC 12 H Urine Mucus Rare H 08/06/17 08/06/17 04:15 04:15 WBC 12.1 H RBC 3.37 L Hgb 10.5 L Hct 32.7 L Neutrophils # (Manual) Lymphocytes # (Manual) Metamyelocytes # (Man) Sodium Chloride 113 H Carbon Dioxide 18 L BUN 19 H Glucose 133 H Calcium 7.6 L Total Creatine Kinase Total Protein 4.4 L Albumin 2.1 L Ur Specific [place] Urine Protein Urine Ketones Urine Blood Ur Leukocyte Esterase Urine WBC Urine Mucus - Diagnostic Findings Chest x-ray: image reviewed CT scan - chest: image reviewed (Labs x-rays medications are all reviewed.) Assessment and Plan (1) S/P small bowel resection Status: Acute (2) Status post small bowel resection Status: Acute (3) H/O resection of small bowel Status: Acute (4) Breast cancer Status: Acute (5) Depression Status: Acute (6) Hypertension Status: Acute (7) Dementia Status: Acute (8) Altered mental status Status: Acute (9) Pneumoperitoneum Status: Acute Plan: Plan dated 08/06/2017 The patient some medications labs and x-rays are all reviewed. She is on IV of D5.45 saline with 20 of potassium chloride at 100 mL an hour. We'll make sure she has updrafts and has an incentive spirometer. We'll encourage deep breathing coughing clearing of secretions. She's getting 1 L bolus of fluid. If her urine picks up, later today she can be moved out of the ICU. Hemodynamically she stable. Respiratory status is stable. Time with Patient: Greater than 30
--- NOTE | 2017-08-06 10:59 | XR ---
EXAMINATION TYPE: XR chest 1V portable DATE OF EXAM: 08/06/2017 COMPARISON: 08/05/2017 HISTORY: Shortness of breath TECHNIQUE: Single frontal view of the chest is obtained. FINDINGS: Bilateral infiltrate and small effusion greater on the right noted. NG tube seen. Postsurg ical change overlying the left chest. IMPRESSION: 1. Bilateral small effusion and infiltrate greater on the right. Asymmetric edema versus pneumonia.
[2017-08-06] MEDS: IPRATROPIUM-ALBUTEROL 3 ML NEB INHALATION SCH ×3 (11:23→19:40)
[2017-08-06] MEDS: HYDROmorphone 1 MG/ML 1 ML SYRINGE IVP PRN ×2 (12:35→21:04)
--- NOTE | 2017-08-06 13:54 | P.PN ---
<Jennifer Turcios - Last Filed: 08/06/17 13:28> Subjective 81-year-old female being seen in the intensive care unit. Patient currently is awake and alert. Family at bedside. Daughter states patient is slowly improving mentation parker patient reportedly lives at the [facility] had an episode of decreased mentation increased confusion with decrease appetite different from baseline. Patient does have a history of dementia according to the daughter has been fairly independent with most of her ADLs. Daughter stated that she became concerned when there was a significant mentation decline in the emergency room patient underwent CAT scan abdomen and pelvis that showed free air with diffuse peritonitis . Due to the diffuse peritonitis and free air on the CAT scan recommendations were for an exploratory lap. The daughter did consent who is her POA. Postop finding showed small bowel perforation with interloop abscess sigmoid diverticulitis with no evidence of perforation with intra-abdominal adhesions . Hepatic collection of pus Patient is postop exploratory laparotomy small bowel resection washout perforated small bowel done on August 05 [address] in place right and left. serous noted in the bulb the right bulb 30 mL for the last 7 hours the left 40 mL for the last 7hrs patient did receive a fluid bolus for low urine output urine output is increasing intake and output reviewed ahead by a liter Objective - Vital Signs Vital signs: Vital Signs Temp 100.2 F H 08/06/17 12:00 Pulse 114 H 08/06/17 13:00 Resp 33 H 08/06/17 13:00 BP 143/61 08/06/17 13:00 Pulse Ox 91 L 08/06/17 13:00 Intake & Output 08/05/17 08/06/17 08/06/17 18:59 06:59 18:59 Intake Total 2101 1650 Output Total 835 390 Balance 1266 1260 Weight 63.503 kg 58.2 kg 58.2 kg Intake: IV 2101 400 D5-0.45% NaCl with KCl 800 400 20Meq/l 1,000 ml @ 100 mls/hr IV .Q10H [facility] Rx#: [id number] Intake, IV Titration 1250 Amount Piperacillin-Tazobactam 3 50 .375 gm In Dextrose/Water 1 50ml.bag @ 12.5 mls/hr IVPB Q8HR [facility] Rx#: [id number] Sodium Chloride 0.9% 1, 1000 000 ml @ 999 mls/hr IV . Q1H1M [facility] Rx#:[id number] metroNIDAZOLE-NS PMX 500 200 mg In Saline 1 100ml.bag @ 100 mls/hr IVPB Q6HR [facility] Rx#:[id number] Output: Drainage 70 Right abdomen NEAL 30 left abdomen NEAL 40 Urine 805 320 Estimated Blood Loss 30 Other: Voiding Method Indwelling Catheter Indwelling Catheter - Exam GENERAL APPEARANCE: 81-year-old female patient is alert, oriented, to self and place in no acute distress. We'll follow simple commands awake and alert VITAL SIGNS: Reviewed HEENT: Head is normocephalic and atraumatic. Pupils are equal and reactive. The nares are patent. Oropharynx is clear without lesions. NECK: Supple without lymphadenopathy. Traches midline. HEART: S1, S2. Regular rate and rhythm. No murmur noted LUNGS: No crackles or wheezes are heard. Sats on 4 L are documented 92% ABDOMEN: Soft, surgical tenderness noted pervea wound VAC in place nondistended with good bowel sounds. No peritoneal signs. No palpable organomegaly or masses. Indwelling Martin catheter urine output improving [address] left and right with serous drainage noted EXTREMITIES: Normal skin color and turgor. No cyanosis, rash, ulceration, clubbing or edema. Radial pedal pulses are 2/4 bilaterally. Venodyne's on bilaterally to lower extremities NEUROLOGICAL: No focal deficits. Strength and sensation are grossly intact. - Labs CBC & Chem 7: 08/06/17 04:15 08/06/17 04:15 Labs: Abnormal Lab Results - Last 24 Hours (Table) 08/05/17 08/05/17 08/05/17 Range/Units 12:50 12:50 12:50 WBC (3.8-10.6) k/uL RBC (3.80-5.40) m/uL Hgb (11.4-16.0) gm/dL Hct (34.0-46.0) % Neutrophils # (Manual) 9.10 H (1.3-7.7) k/uL Lymphocytes # (Manual) 0.50 L (1.0-4.8) k/uL Metamyelocytes # (Man) 0.20 H (0) k/uL Sodium 135 L (137-145) mmol/L Chloride (98-107) mmol/L Carbon Dioxide 21 L (22-30) mmol/L BUN 31 H (7-17) mg/dL Glucose 121 H (74-99) mg/dL Calcium (8.4-10.2) mg/dL Total Creatine Kinase 730 H (30-135) U/L Total Protein 5.7 L (6.3-8.2) g/dL Albumin 3.0 L (3.5-5.0) g/dL Ur Specific [place] (1.001-1.035) Urine Protein (Negative) Urine Ketones (Negative) Urine Blood (Negative) Ur Leukocyte Esterase (Negative) Urine WBC (0-5) /hpf Urine Mucus (None) /hpf 08/05/17 08/05/17 08/05/17 Range/Units 15:25 22:55 22:55 WBC 11.9 H (3.8-10.6) k/uL RBC (3.80-5.40) m/uL Hgb (11.4-16.0) gm/dL Hct (34.0-46.0) % Neutrophils # (Manual) 11.50 H (1.3-7.7) k/uL Lymphocytes # (Manual) 0.36 L (1.0-4.8) k/uL Metamyelocytes # (Man) (0) k/uL Sodium (137-145) mmol/L Chloride 110 H (98-107) mmol/L Carbon Dioxide 17 L (22-30) mmol/L BUN 19 H (7-17) mg/dL Glucose 124 H (74-99) mg/dL Calcium 7.9 L (8.4-10.2) mg/dL Total Creatine Kinase (30-135) U/L Total Protein (6.3-8.2) g/dL Albumin (3.5-5.0) g/dL Ur Specific [place] >1.049 H (1.001-1.035) Urine Protein Trace H (Negative) Urine Ketones 1+ H (Negative) Urine Blood Trace H (Negative) Ur Leukocyte Esterase Moderate H (Negative) Urine WBC 12 H (0-5) /hpf Urine Mucus Rare H (None) /hpf 08/06/17 08/06/17 Range/Units 04:15 04:15 WBC 12.1 H (3.8-10.6) k/uL RBC 3.37 L (3.80-5.40) m/uL Hgb 10.5 L (11.4-16.0) gm/dL Hct 32.7 L (34.0-46.0) % Neutrophils # (Manual) (1.3-7.7) k/uL Lymphocytes # (Manual) (1.0-4.8) k/uL Metamyelocytes # (Man) (0) k/uL Sodium (137-145) mmol/L Chloride 113 H (98-107) mmol/L Carbon Dioxide 18 L (22-30) mmol/L BUN 19 H (7-17) mg/dL Glucose 133 H (74-99) mg/dL Calcium 7.6 L (8.4-10.2) mg/dL Total Creatine Kinase (30-135) U/L Total Protein 4.4 L (6.3-8.2) g/dL Albumin 2.1 L (3.5-5.0) g/dL Ur Specific [place] (1.001-1.035) Urine Protein (Negative) Urine Ketones (Negative) Urine Blood (Negative) Ur Leukocyte Esterase (Negative) Urine WBC (0-5) /hpf Urine Mucus (None) /hpf Microbiology - Last 24 Hours (Table) 08/05/17 21:20 Anaerobic Culture - Preliminary Abdomen 08/05/17 21:20 Wound Culture - Preliminary Abdomen 08/05/17 15:25 Urine Culture - Preliminary Urine,Catheterized Assessment and Plan Plan: Impression Acute encephalopathy suspect metabolic present on admission CAT scan abdomen and pelvis shows free air with diffuse peritonitis Present on admission diffuse peritonitis with sepsis Status post 05 of August small bowel perforation exploratory laparotomy, lysis of adhesions, small bowel resection, washout of the abdomen, perihepatic collection of pus Baseline dementia cognitive impairment History of left breast cancer status post chemo treatment 1999 Aspiration pneumonia acute present on admission Present on admission acute dehydration Present on admission acute Pneumoperitoneum Plan Continue ICU care per the inspector toys Continue postop surgical care Pain control DVT and GI prophylaxis PT OT when appropriate daughter is requesting possible subacute rehab when medically stable Continue IV antibiotic Flagyl and Zosyn Monitor the intake and output address as indicated Follow-up on wound and urinating cultures Further surgical recommendations pending The above impression and plan of care have been discussed and directed by signing physician. Jennifer Turcios nurse practitioner acting as scribe for signing physician. <Rob,Ahcarrold W - Last Filed: 08/11/17 21:34> Objective - Vital Signs Vital signs: Vital Signs Temp 97.5 F L 08/11/17 18:40 Pulse 100 08/11/17 20:20 Resp 16 08/11/17 18:40 BP 160/72 08/11/17 18:40 Pulse Ox 95 08/11/17 20:06 Intake & Output 08/11/17 08/11/17 08/12/17 06:59 18:59 06:59 Intake Total 150 600 200 Output Total 540 50 Balance -390 550 200 Weight 61.6 kg Intake: IV 600 D5-0.45% NaCl with KCl 500 20Meq/l 1,000 ml @ 100 mls/hr IV .Q10H [facility] Rx#: [id number] metroNIDAZOLE-NS PMX 500 100 mg In Saline 1 100ml.bag @ 100 mls/hr IVPB Q6HR [facility] Rx#:[id number] Oral 150 200 Output: Drainage 40 50 Right abdomen NEAL 15 left abdomen NEAL 25 50 Urine 500 Other: Voiding Method Bedside Commode Bedside Commode # Voids 1 3 # Bowel Movements 1 - Labs CBC & Chem 7: 08/11/17 07:18 08/11/17 07:18 Labs: Abnormal Lab Results - Last 24 Hours (Table) 08/11/17 08/11/17 08/11/17 Range/Units 06:58 07:18 07:18 RBC 3.32 L (3.80-5.40) m/uL Hgb 10.1 L (11.4-16.0) gm/dL Hct 31.1 L (34.0-46.0) % Glucose 105 H (74-99) mg/dL POC Glucose (mg/dL) 103 H (75-99) mg/dL Calcium 8.3 L (8.4-10.2) mg/dL Total Protein 4.6 L (6.3-8.2) g/dL Albumin 2.2 L (3.5-5.0) g/dL 08/11/17 08/11/17 Range/Units 16:56 20:06 RBC (3.80-5.40) m/uL Hgb (11.4-16.0) gm/dL Hct (34.0-46.0) % Glucose (74-99) mg/dL POC Glucose (mg/dL) 118 H 110 H (75-99) mg/dL Calcium (8.4-10.2) mg/dL Total Protein (6.3-8.2) g/dL Albumin (3.5-5.0) g/dL Assessment and Plan (1) Altered mental status Status: Acute (2) Aspiration pneumonia Status: Acute (3) Dehydration Status: Acute (4) Pneumoperitoneum Status: Acute
[2017-08-07] MEDS: SODIUM CHLORIDE 0.9% 1,000 ML IV SCH (00:21)
[2017-08-07] MEDS: PIPERACILLIN-TAZOBACTAM 3.375 GM in DEXTROSE/WATER 1 50ML.BAG IVPB SCH ×3 (00:22→16:08)
[2017-08-07] MEDS: metroNIDAZOLE-NS PMX 500 MG in SALINE 1 100ML.BAG IVPB SCH ×4 (00:22→17:48)
[2017-08-07 04:44] LABS: CHCM 32.7; HDW 2.52; HGB 9.3 gm/dL (11.4-16.0); MCH 30.5 pg (25.0-35.0); MCV 95.4 fL (80.0-100.0); Mean Platelet Volume 7.2; RBC 3.04 m/uL (3.80-5.40); WBC 12.3 k/uL (3.8-10.6)
[2017-08-07 05:08] LABS: ALT 30 U/L (9-52); AST 14 U/L (14-36); Alkaline Phosphatase 79 U/L (38-126); Anion Gap 5 mmol/L; Blood Urea Nitrogen 14 mg/dL (7-17); Calcium 7.7 mg/dL (8.4-10.2); Carbon Dioxide 23 mmol/L (22-30); Chloride 110 mmol/L (98-107); Glucose 125 mg/dL (74-99); Magnesium 2.1 mg/dL (1.6-2.3); Non-African American GFR(MDRD) >60 (>60 ml/min/1.73 sqM); Phosphorous 2.4 mg/dL (2.5-4.5); Sodium 138 mmol/L (137-145); Total Bilirubin 0.4 mg/dL (0.2-1.3); Total Protein 4.2 g/dL (6.3-8.2)
[2017-08-07] MEDS: HYDROmorphone 1 MG/ML 1 ML SYRINGE IVP PRN ×5 (05:26→22:32)
[2017-08-07] MEDS: D5-0.45% NACL WITH KCL 20MEQ/L 1,000 ML IV SCH ×2 (05:33→13:44)
[2017-08-07] MEDS: IPRATROPIUM-ALBUTEROL 3 ML NEB INHALATION SCH ×4 (07:25→19:09)
[2017-08-07] MEDS: KETOROLAC 30 MG/ML 1 ML VIAL IVP PRN ×2 (08:06→18:49)
[2017-08-07] MEDS ORDERED: FUROSEMIDE 10 MG/ML 2 ML VIAL IV ONE (08:10)
[2017-08-07 08:20] LABS: Glucose,Whole Blood 131 mg/dL (75-99)
[2017-08-07] MEDS: INSULIN LISPRO (humaLOG) 300 UNIT/3 ML VIAL SQ SCH ×4 (08:25→21:12)
[2017-08-07] MEDS: HEPARIN SODIUM,PORCINE 5,000 UNIT/ML 1 ML VIAL SQ SCH ×2 (08:52→21:26)
[2017-08-07] MEDS: PANTOPRAZOLE 40 MG/10 ML VIAL IVP SCH ×2 (08:52→21:59)
--- NOTE | 2017-08-07 08:58 | P.PN ---
Subjective Progress note dated 08/07/2017 81-year-old female brought to the emergency department by family because of altered mental status. The patient apparently had an unobserved fall. The patient subsequently developed left foot lethargy and drowsiness which she was brought to the emergency room. Apparently chest x-ray showed evidence of pneumoperitoneum. Today is postop day #2. The patient had a small bowel resection with exploratory laparotomy. She also had a washout because of a perforation and abscess formation. Today she's developed some partial collapse or infiltrate in the right lung. She is really not mobilizing secretions not taking deep breaths or using her incentive spirometer. I asked the nurse to go ahead and do chest physiotherapy to the right side may sure that she was on updrafts 4 times a day and when necessary and also encourage the incentive spirometry every hour while awake. The patient's currently on O2 at 5 L nasal cannula getting an IV of D5.45 with 20 of potassium at 100 mL an hour. Again today's postop day #2. Objective - Vital Signs Vital signs: Vital Signs Temp 99.5 F 08/07/17 08:00 Pulse 91 08/07/17 08:00 Resp 18 08/07/17 08:00 BP 126/70 08/07/17 08:00 Pulse Ox 92 L 08/07/17 08:00 Intake & Output 08/06/17 08/07/17 08/07/17 18:59 06:59 18:59 Intake Total 2475 1150 300 Output Total 700 1495 75 Balance 1775 -345 225 Weight 58.2 kg 60.7 kg 60.8 kg Intake: IV 1000 1150 300 D5-0.45% NaCl with KCl 1000 1000 200 20Meq/l 1,000 ml @ 100 mls/hr IV .Q10H [facility] Rx#: [id number] Piperacillin-Tazobactam 3 50 .375 gm In Dextrose/Water 1 50ml.bag @ 12.5 mls/hr IVPB Q8HR [facility] Rx#: [id number] metroNIDAZOLE-NS PMX 500 100 100 mg In Saline 1 100ml.bag @ 100 mls/hr IVPB Q6HR [facility] Rx#:[id number] Intake, IV Titration 1400 Amount Piperacillin-Tazobactam 3 100 .375 gm In Dextrose/Water 1 50ml.bag @ 12.5 mls/hr IVPB Q8HR [facility] Rx#: [id number] Sodium Chloride 0.9% 1, 1000 000 ml @ 999 mls/hr IV . Q1H1M [facility] Rx#:[id number] metroNIDAZOLE-NS PMX 500 300 mg In Saline 1 100ml.bag @ 100 mls/hr IVPB Q6HR [facility] Rx#:[id number] Tube Feeding 75 Output: Gastric Drainage 600 Drainage 70 240 Right abdomen NEAL 30 90 left abdomen NEAL 40 150 Urine 630 655 75 Other: Voiding Method Indwelling Catheter Indwelling Catheter Indwelling Catheter - Exam No acute distress, oriented 3. HEENT examination is grossly unremarkable. Nasogastric tube in place. Mucous membranes are moist. Neck supple. Full range of motion. No adenopathy thyromegaly or neck vein distention. Cardiovascular examination reveals regular rhythm rate. Heart sounds are distant. S1-S2 normal. No murmur. Lungs reveal coarse rhonchi. Very congested sounding cough. Breath sounds equal. No wheezes or crackles. Abdomen soft without bowel sounds being heard. Extremities are intact. No cyanosis clubbing or edema. Skin without rash. Neurologic examination is nonfocal. - Labs CBC & Chem 7: 08/07/17 04:11 08/07/17 04:11 Labs: Abnormal Lab Results - Last 24 Hours (Table) 08/07/17 08/07/17 08/07/17 Range/Units 04:11 04:11 08:18 WBC 12.3 H (3.8-10.6) k/uL RBC 3.04 L (3.80-5.40) m/uL Hgb 9.3 L (11.4-16.0) gm/dL Hct 29.0 L (34.0-46.0) % Chloride 110 H (98-107) mmol/L Glucose 125 H (74-99) mg/dL POC Glucose (mg/dL) 131 H (75-99) mg/dL Calcium 7.7 L (8.4-10.2) mg/dL Phosphorus 2.4 L (2.5-4.5) mg/dL Total Protein 4.2 L (6.3-8.2) g/dL Albumin 1.9 L (3.5-5.0) g/dL Microbiology - Last 24 Hours (Table) 08/05/17 21:20 Gram Stain - Preliminary Abdomen Wound Culture - Preliminary 08/05/17 15:25 Urine Culture - Preliminary Urine,Catheterized Gram Neg Bacilli 08/05/17 21:20 Anaerobic Culture - Preliminary Abdomen Assessment and Plan (1) S/P small bowel resection Status: Acute (2) Status post small bowel resection Status: Acute (3) H/O resection of small bowel Status: Acute (4) Breast cancer Status: Acute (5) Depression Status: Acute (6) Hypertension Status: Acute (7) Dementia Status: Acute (8) Altered mental status Status: Acute (9) Pneumoperitoneum Status: Acute Plan: Plan dated 08/06/2017 The patient some medications labs and x-rays are all reviewed. She is on IV of D5.45 saline with 20 of potassium chloride at 100 mL an hour. We'll make sure she has updrafts and has an incentive spirometer. We'll encourage deep breathing coughing clearing of secretions. She's getting 1 L bolus of fluid. If her urine picks up, later today she can be moved out of the ICU. Hemodynamically she stable. Respiratory status is stable. Plan dated 08/07/2017 The patient's labs x-rays a medications are all reviewed. The patient really needs chest physiotherapy to the right chest incentive spirometry every hour while awake and updrafts. We'll continue to follow. We'll not transfer the patient out here. No additional recommendations are made. We'll continue to follow. Prognosis is guarded. Although hemodynamically stable, I'm concerned about her respiratory status. Time with Patient: Greater than 30
--- NOTE | 2017-08-07 09:09 | XR ---
EXAMINATION TYPE: XR chest 1V portable DATE OF EXAM: 08/07/2017 COMPARISON: 08/06/2017 HISTORY: Cough FINDINGS: There are bilateral pleural effusions with cardiomegaly and bibasilar infiltrate. There is a diffuse interstitial pattern. NG tube noted. Calcification overlying the left humeral head. Arthropathy of t he shoulders. Surgical change overlying the left chest. IMPRESSION: 1. Diffuse airspace disease has progressed on the right. Differential diagnosis would include pulmona ry edema or diffuse pneumonia. Correlate clinically.
--- NOTE | 2017-08-07 11:45 | PN ---
PROGRESS NOTE CHIEF COMPLAINT: Re-evaluation. HISTORY OF PRESENT ILLNESS: This is a 81-year-old who was admitted to the hospital with a perforated small bowel. The patient had an acute abdomen for which she had emergency surgery. Today she is feeling better. She is more awake and alert. She does have underlying history of mild dementia. She recognizes me promptly. She knows she is in the hospital. REVIEW OF SYSTEMS: NEURO: Denies any headaches, dizziness. PSYCH: Cooperative. CARDIAC: Denies chest pain. RESPIRATORY: Denies shortness of breath, cough. GI: No nausea, vomiting. Has an NG tube. Abdominal pain controlled. No diarrhea. No bowel movement. : No symptoms of dysuria or hematuria. Has IDC. Extremities denies pain. CONSTITUTIONAL: No fever or chills. PHYSICAL EXAMINATION: Pleasant female in no distress. Vital signs reveal temperature 99.8 axillary, pulse 90, respirations 21, blood pressure 127/58, pulse ox 93% on 4 L. HEENT: Normocephalic. Neck is supple. No JVD. Pupils are reactive. Oral cavity is dry. CHEST: Clear to auscultation except for decreased effort right base. Much improved aeration compared to yesterday. CARDIAC: Normal S1, S2 with no gallops or murmurs. Abdomen is distended, tender, absent bowel sounds. Extremities reveal no edema. No tenderness. NEUROLOGICALLY: Awake, alert, oriented to place, person. Moves both upper and lower extremities adequately. LABORATORY ASSESSMENT: White count 12.1, hemoglobin 10.5, platelets 285. Sodium 138, potassium 4.5, chloride 113, CO2 content 18, anion gap 7. BUN 19, creatinine 0.59. Blood sugar 133. Albumin 2.1. ASSESSMENT: 1. Acute abdomen, status post small bowel perforation. 2. Peritonitis. 3. Right lower lobe infiltrate, atelectasis versus aspiration pneumonia. 4. Dementia. 5. Remote history of carcinoma of the breast. PLAN: The patient is stable. Continue present medical regimen. Patient's antibiotics, Zosyn and Flagyl, will continued. Patient's condition discussed with the patient. Prognosis guarded. We will review status with daughter when available. MMODL / IJN: [id number] /
[2017-08-07 13:34] LABS: Glucose,Whole Blood 169 mg/dL (75-99)
[2017-08-07] MEDS ORDERED: FUROSEMIDE 10 MG/ML 4 ML VIAL ONE (13:42)
--- NOTE | 2017-08-07 15:08 | P.PN ---
<Jennifer Turcios - Last Filed: 08/07/17 15:01> Subjective 81-year-old female being seen in the intensive care unit this afternoon granddaughter at bedside. Currently pleasant oriented to person place questionable event cooperative. Patients being followed by the advertising solicitor recommendations appreciated. Recommending chest physiotherapy to the right side encourage the use of an incentive spirometer. Patient had a chest x-ray done showed evidence of pneumoperitoneum pulmonary currently the nasal cannula at 4 L sats are 92% Patient is postop exploratory laparotomy small bowel resection washout perforated small bowel done on August 05 Objective - Vital Signs Vital signs: Vital Signs Temp 98.4 F 08/07/17 13:30 Pulse 99 08/07/17 14:00 Resp 21 08/07/17 14:00 BP 139/69 08/07/17 14:00 Pulse Ox 92 L 08/07/17 14:00 Intake & Output 08/06/17 08/07/17 08/07/17 18:59 06:59 18:59 Intake Total 2475 1150 1050 Output Total 700 1495 695 Balance 1775 -345 355 Weight 58.2 kg 60.7 kg 60.8 kg Intake: IV 1000 1150 1000 D5-0.45% NaCl with KCl 1000 1000 800 20Meq/l 1,000 ml @ 100 mls/hr IV .Q10H [facility] Rx#: [id number] Piperacillin-Tazobactam 3 50 .375 gm In Dextrose/Water 1 50ml.bag @ 12.5 mls/hr IVPB Q8HR [facility] Rx#: [id number] metroNIDAZOLE-NS PMX 500 100 200 mg In Saline 1 100ml.bag @ 100 mls/hr IVPB Q6HR [facility] Rx#:[id number] Intake, IV Titration 1400 50 Amount Piperacillin-Tazobactam 3 100 50 .375 gm In Dextrose/Water 1 50ml.bag @ 12.5 mls/hr IVPB Q8HR [facility] Rx#: [id number] Sodium Chloride 0.9% 1, 1000 000 ml @ 999 mls/hr IV . Q1H1M [facility] Rx#:[id number] metroNIDAZOLE-NS PMX 500 300 mg In Saline 1 100ml.bag @ 100 mls/hr IVPB Q6HR [facility] Rx#:[id number] Tube Feeding 75 Output: Gastric Drainage 600 Drainage 70 240 90 Right abdomen NEAL 30 90 70 left abdomen NEAL 40 150 20 Urine 630 655 605 Other: Voiding Method Indwelling Catheter Indwelling Catheter Indwelling Catheter - Exam GENERAL APPEARANCE: 81-year-old female patient is alert, oriented, in no acute distress. VITAL SIGNS: Reviewed HEENT: Head is normocephalic and atraumatic. Pupils are equal and reactive. The nares are patent. Oropharynx is clear without lesions. NECK: Supple without lymphadenopathy. Traches midline. HEART: S1, S2. Regular rate and rhythm. Sinus rhythm no murmur noted LUNGS: Coarse rhonchi diminished at the bases right greater than the left no audible wheezing no cough ABDOMEN: Soft, nasal gastric tube down connected to suction surgical tenderness nondistended with good bowel sounds. No peritoneal signs. No palpable organomegaly or masses. NEAL drains in place right and left indwelling Martin catheter in place EXTREMITIES: Normal skin color and turgor. No cyanosis, rash, ulceration, clubbing or edema. Radial pedal pulses are 2/4 bilaterally. - Labs CBC & Chem 7: 08/07/17 04:11 08/07/17 04:11 Labs: Abnormal Lab Results - Last 24 Hours (Table) 08/07/17 08/07/17 08/07/17 Range/Units 04:11 04:11 08:18 WBC 12.3 H (3.8-10.6) k/uL RBC 3.04 L (3.80-5.40) m/uL Hgb 9.3 L (11.4-16.0) gm/dL Hct 29.0 L (34.0-46.0) % Chloride 110 H (98-107) mmol/L Glucose 125 H (74-99) mg/dL POC Glucose (mg/dL) 131 H (75-99) mg/dL Calcium 7.7 L (8.4-10.2) mg/dL Phosphorus 2.4 L (2.5-4.5) mg/dL Total Protein 4.2 L (6.3-8.2) g/dL Albumin 1.9 L (3.5-5.0) g/dL 08/07/17 Range/Units 13:31 WBC (3.8-10.6) k/uL RBC (3.80-5.40) m/uL Hgb (11.4-16.0) gm/dL Hct (34.0-46.0) % Chloride (98-107) mmol/L Glucose (74-99) mg/dL POC Glucose (mg/dL) 169 H (75-99) mg/dL Calcium (8.4-10.2) mg/dL Phosphorus (2.5-4.5) mg/dL Total Protein (6.3-8.2) g/dL Albumin (3.5-5.0) g/dL Microbiology - Last 24 Hours (Table) 08/05/17 21:20 Gram Stain - Preliminary Abdomen Wound Culture - Preliminary Gram Neg Bacilli 08/05/17 15:25 Urine Culture - Preliminary Urine,Catheterized Gram Neg Bacilli 08/05/17 21:20 Anaerobic Culture - Preliminary Abdomen Assessment and Plan Plan: Impression Acute encephalopathy suspect metabolic present on admission CAT scan abdomen and pelvis shows free air with diffuse peritonitis Present on admission diffuse peritonitis with sepsis Status post 05 of August small bowel perforation exploratory laparotomy, lysis of adhesions, small bowel resection, washout of the abdomen, perihepatic collection of pus Baseline dementia cognitive impairment History of left breast cancer status post chemo treatment 1999 Aspiration pneumonia acute present on admission Present on admission acute dehydration acute Pneumoperitoneum Plan Continue ICU care per the advertising solicitor Continue postop surgical care Pain control DVT and GI prophylaxis PT OT when appropriate daughter is requesting possible subacute rehab when medically stable Continue IV antibiotic Flagyl and Zosyn Monitor the intake and output address as indicated Follow-up on wound and urinating cultures Further surgical recommendations pending The above impression and plan of care have been discussed and directed by signing physician. Jennifer Turcios nurse practitioner acting as scribe for signing physician. <Rob,Ahmad W - Last Filed: 08/11/17 21:35> Objective - Vital Signs Vital signs: Vital Signs Temp 97.5 F L 08/11/17 18:40 Pulse 100 08/11/17 20:20 Resp 16 08/11/17 18:40 BP 160/72 08/11/17 18:40 Pulse Ox 95 08/11/17 20:06 Intake & Output 08/11/17 08/11/17 08/12/17 06:59 18:59 06:59 Intake Total 150 600 200 Output Total 540 50 Balance -390 550 200 Weight 61.6 kg Intake: IV 600 D5-0.45% NaCl with KCl 500 20Meq/l 1,000 ml @ 100 mls/hr IV .Q10H [facility] Rx#: [id number] metroNIDAZOLE-NS PMX 500 100 mg In Saline 1 100ml.bag @ 100 mls/hr IVPB Q6HR [facility] Rx#:[id number] Oral 150 200 Output: Drainage 40 50 Right abdomen NEAL 15 left abdomen NEAL 25 50 Urine 500 Other: Voiding Method Bedside Commode Bedside Commode # Voids 1 3 # Bowel Movements 1 - Labs CBC & Chem 7: 08/11/17 07:18 08/11/17 07:18 Labs: Abnormal Lab Results - Last 24 Hours (Table) 08/11/17 08/11/17 08/11/17 Range/Units 06:58 07:18 07:18 RBC 3.32 L (3.80-5.40) m/uL Hgb 10.1 L (11.4-16.0) gm/dL Hct 31.1 L (34.0-46.0) % Glucose 105 H (74-99) mg/dL POC Glucose (mg/dL) 103 H (75-99) mg/dL Calcium 8.3 L (8.4-10.2) mg/dL Total Protein 4.6 L (6.3-8.2) g/dL Albumin 2.2 L (3.5-5.0) g/dL 08/11/17 08/11/17 Range/Units 16:56 20:06 RBC (3.80-5.40) m/uL Hgb (11.4-16.0) gm/dL Hct (34.0-46.0) % Glucose (74-99) mg/dL POC Glucose (mg/dL) 118 H 110 H (75-99) mg/dL Calcium (8.4-10.2) mg/dL Total Protein (6.3-8.2) g/dL Albumin (3.5-5.0) g/dL Assessment and Plan (1) Altered mental status Status: Acute (2) Aspiration pneumonia Status: Acute (3) Dehydration Status: Acute (4) Pneumoperitoneum Status: Acute
[2017-08-07 17:47] LABS: Glucose,Whole Blood 118 mg/dL (75-99)
[2017-08-07 20:53] LABS: Glucose,Whole Blood 116 mg/dL (75-99)
[2017-08-08] MEDS: metroNIDAZOLE-NS PMX 500 MG in SALINE 1 100ML.BAG IVPB SCH ×5 (00:22→23:14)
[2017-08-08] MEDS: PIPERACILLIN-TAZOBACTAM 3.375 GM in DEXTROSE/WATER 1 50ML.BAG IVPB SCH ×4 (00:22→23:14)
[2017-08-08] MEDS: D5-0.45% NACL WITH KCL 20MEQ/L 1,000 ML IV SCH ×3 (00:23→21:00)
[2017-08-08] MEDS: HYDROmorphone 1 MG/ML 1 ML SYRINGE IVP PRN ×6 (03:09→21:00)
[2017-08-08 04:56] LABS: CH 30.9; CHCM 32.6; HCT 30.8 % (34.0-46.0); HDW 2.56; HGB 9.8 gm/dL (11.4-16.0); MCH 30.4 pg (25.0-35.0); MCHC 31.8 g/dL (31.0-37.0); MCV 95.4 fL (80.0-100.0); Mean Platelet Volume 6.9; RBC 3.23 m/uL (3.80-5.40); RDW 14.2 % (11.5-15.5); WBC 12.8 k/uL (3.8-10.6)
[2017-08-08 05:09] LABS: ALT 25 U/L (9-52); AST 13 U/L (14-36); Alkaline Phosphatase 70 U/L (38-126); Anion Gap 4 mmol/L; Blood Urea Nitrogen 14 mg/dL (7-17); Calcium 7.9 mg/dL (8.4-10.2); Carbon Dioxide 25 mmol/L (22-30); Chloride 107 mmol/L (98-107); Glucose 127 mg/dL (74-99); Magnesium 1.9 mg/dL (1.6-2.3); Non-African American GFR(MDRD) >60 (>60 ml/min/1.73 sqM); Phosphorous 2.9 mg/dL (2.5-4.5); Potassium 3.4 mmol/L (3.5-5.1); Sodium 136 mmol/L (137-145); Total Bilirubin 0.4 mg/dL (0.2-1.3); Total Protein 4.2 g/dL (6.3-8.2)
[2017-08-08] MEDS: MAGNESIUM SULFATE-D5W PMX 1 GM in DEXTROSE/WATER 1 100ML.BAG IVPB SCH ×2 (05:51→07:22)
--- NOTE | 2017-08-08 06:52 | XR ---
EXAMINATION TYPE: XR chest 1V portable DATE OF EXAM: 08/08/2017 HISTORY: shortness of breath. REFERENCE: Previous study dated 08/07/2017. FINDINGS: There are patchy, bilateral infiltrates, worse on the right than the left. There are bronch ograms on the right. Lung volumes are prominent. Pleural spaces are clear. Heart is mildly enlarged. An NG tube remains in place, unchanged in appearance. IMPRESSION: SLIGHT IMPROVED AERATION IN THE RIGHT UPPER LOBE.
[2017-08-08 07:07] LABS: Glucose,Whole Blood 129 mg/dL (75-99)
[2017-08-08] MEDS: IPRATROPIUM-ALBUTEROL 3 ML NEB INHALATION SCH ×4 (07:21→19:33)
[2017-08-08] MEDS: PANTOPRAZOLE 40 MG/10 ML VIAL IVP SCH ×2 (08:21→21:04)
[2017-08-08] MEDS: HEPARIN SODIUM,PORCINE 5,000 UNIT/ML 1 ML VIAL SQ SCH ×2 (08:21→21:03)
[2017-08-08] MEDS: INSULIN LISPRO (humaLOG) 300 UNIT/3 ML VIAL SQ SCH ×4 (08:43→21:04)
[2017-08-08 08:45] LABS: Glucose,Whole Blood 150 mg/dL (75-99)
--- NOTE | 2017-08-08 09:05 | PN ---
PROGRESS NOTE ATTENDING PHYSICIAN: Dr. Correa. CONSULTING PHYSICIAN: Dr. Hicks. CHIEF COMPLAINT: Re-evaluation. HISTORY OF PRESENT ILLNESS: This is a 81-year-old who was admitted to the hospital with acute abdomen, subsequently has undergone repair of a perforated small bowel. The perforation etiology not very clear. The patient also had evidence of peritonitis for which she is on treatment with Zosyn and Flagyl. The patient has underlying history of dementia. She was quite obtunded on admission, but now she is basically cleared back to usual status. The patient has had no fever. The patient's urine output has been on the low side about 20 to 25 mL an hour. The patient is in no respiratory distress. However, clinically the patient has evidence of congestion right lung and bilateral effusions clinically. Suspected clinically. REVIEW OF SYSTEMS: Neuro: Denies any headaches dizziness. Psych: Cooperative. Cardiac: Denies chest pain, shortness of breath. Does have some cough, but unable to bring up the sputum. GI: No nausea, vomiting. Patient complains of abdominal pain. No diarrhea. No bowel movement. : No symptoms of dysuria or hematuria. Has IDC. Extremities: No pain. Constitutional: No fever, chills. PHYSICAL EXAMINATION: 81-year-old female, pleasant, in no distress. Pleasant and cooperative. Vital signs reveals temperature recorded earlier was 98.9, and the pulse of 95, respirations 16, blood pressure 124/64, pulse ox 91% on 4 L. HEENT: Normocephalic. Neck no JVD. Chest examination decreased air flow bilateral bases with some dullness to percussion right base. The patient has rhonchi especially in the right lung contreras. Cardiac distant sounds S1, S2 with no gallop. Systolic murmur 2/6 left sternal border. Abdomen: Protuberant. Tender. Absent bowel sounds. Extremities reveal 1+ edema. Neurological is awake, alert, oriented to place, person. Moves both upper extremities well and moves upon command. LABORATORY DATA: Chest x-ray reveals suggestion of fluid overload versus pneumonia. Patient has bilateral effusions. White count 12.3, hemoglobin 9.3, platelets 286. Electrolytes normal. BUN 14, creatinine 0.6, glucose 125. ASSESSMENT: 1. Probable aspiration pneumonia. 2. Possible fluid overload with possible congestive heart failure. 3. Status post abdominal surgery. 4. Dementia. 5. Metabolic encephalopathy, resolved. PLAN: Continue present medical regimen with IV antibiotics. The patient will be given a dose of Lasix. Prognosis remains guarded. Condition discussed with the patient. DYLAN / DEN: [id number] /
--- NOTE | 2017-08-08 10:56 | P.PN ---
Subjective Patient is a 81-year-old white female who is status post exploratory laparotomy on 08/05/2017. She was noted to have interloop abscess and had resection of portion of the small bowel. She has 2 intraperitoneal drains placed. Patient is hemodynamically stable at this time. She has not passed any flatus. She is sitting up in a chair. Objective - Vital Signs Vital signs: Vital Signs Temp 99.9 F H 08/08/17 09:30 Pulse 102 H 08/08/17 10:30 Resp 44 H 08/08/17 10:30 BP 142/73 08/08/17 10:30 Pulse Ox 93 L 08/08/17 10:30 Intake & Output 08/07/17 08/08/17 08/08/17 18:59 06:59 18:59 Intake Total 1600 1550.0 800 Output Total 2100 645 280 Balance -500 905.0 520 Weight 60.8 kg 61.6 kg Intake: IV 1500 1550.0 500 D5-0.45% NaCl with KCl 1200 1200 400 20Meq/l 1,000 ml @ 100 mls/hr IV .Q10H [facility] Rx#: [id number] Magnesium Sulfate-D5w Pmx 100 100 1 gm In Dextrose/Water 1 100ml.bag @ 100 mls/hr IVPB Q1H [facility] Rx#: [id number] Piperacillin-Tazobactam 3 50.0 .375 gm In Dextrose/Water 1 50ml.bag @ 12.5 mls/hr IVPB Q8HR [facility] Rx#: [id number] metroNIDAZOLE-NS PMX 500 300 200 mg In Saline 1 100ml.bag @ 100 mls/hr IVPB Q6HR [facility] Rx#:[id number] Intake, IV Titration 100 300 Amount Piperacillin-Tazobactam 3 100 100 .375 gm In Dextrose/Water 1 50ml.bag @ 12.5 mls/hr IVPB Q8HR [facility] Rx#: [id number] Potassium Chloride 10 meq 200 Lidocaine 2% Inj 10 mg In Sodium Chloride 0.9% 100 ml @ 100 mls/hr IV Q1HR [facility] Rx#:[id number] Output: Drainage 120 Right abdomen NEAL 80 left abdomen NEAL 40 Urine 1980 645 280 Other: Voiding Method Indwelling Catheter Indwelling Catheter Indwelling Catheter - Constitutional General appearance: Present: average body habitus, no acute distress - Respiratory Details: Decreased breath sounds at bases - Cardiovascular Rhythm: regular Heart sounds: normal: S1, S2 - Gastrointestinal Gastrointestinal Comment(s): Dressings clean and dry NEAL drains serosanguineous NG tube in place General gastrointestinal: Present: absent bowel sounds, soft - Psychiatric Psychiatric: Present: A&O x's 3, appropriate affect, intact judgment & insight - Labs CBC & Chem 7: 08/08/17 04:37 08/08/17 04:37 Labs: Abnormal Lab Results - Last 24 Hours (Table) 08/07/17 08/07/17 08/07/17 Range/Units 13:31 17:46 20:52 WBC (3.8-10.6) k/uL RBC (3.80-5.40) m/uL Hgb (11.4-16.0) gm/dL Hct (34.0-46.0) % Sodium (137-145) mmol/L Potassium (3.5-5.1) mmol/L Creatinine (0.52-1.04) mg/dL Glucose (74-99) mg/dL POC Glucose (mg/dL) 169 H 118 H 116 H (75-99) mg/dL Calcium (8.4-10.2) mg/dL AST (14-36) U/L Total Protein (6.3-8.2) g/dL Albumin (3.5-5.0) g/dL 08/08/17 08/08/17 08/08/17 Range/Units 04:37 04:37 07:06 WBC 12.8 H (3.8-10.6) k/uL RBC 3.23 L (3.80-5.40) m/uL Hgb 9.8 L (11.4-16.0) gm/dL Hct 30.8 L (34.0-46.0) % Sodium 136 L (137-145) mmol/L Potassium 3.4 L (3.5-5.1) mmol/L Creatinine 0.50 L (0.52-1.04) mg/dL Glucose 127 H (74-99) mg/dL POC Glucose (mg/dL) 129 H (75-99) mg/dL Calcium 7.9 L (8.4-10.2) mg/dL AST 13 L (14-36) U/L Total Protein 4.2 L (6.3-8.2) g/dL Albumin 1.9 L (3.5-5.0) g/dL 08/08/17 Range/Units 08:43 WBC (3.8-10.6) k/uL RBC (3.80-5.40) m/uL Hgb (11.4-16.0) gm/dL Hct (34.0-46.0) % Sodium (137-145) mmol/L Potassium (3.5-5.1) mmol/L Creatinine (0.52-1.04) mg/dL Glucose (74-99) mg/dL POC Glucose (mg/dL) 150 H (75-99) mg/dL Calcium (8.4-10.2) mg/dL AST (14-36) U/L Total Protein (6.3-8.2) g/dL Albumin (3.5-5.0) g/dL Microbiology - Last 24 Hours (Table) 08/05/17 15:25 Urine Culture - Final Urine,Catheterized Escherichia coli 08/05/17 21:20 Gram Stain - Preliminary Abdomen Wound Culture - Preliminary Gram Neg Bacilli Assessment and Plan Plan: Impression/plan: 1. Status post small bowel resection with intraloop abscess 2. History of breast cancer 3. History of depression 4. History of hypertension Plan: 1. Pulmonary care as per pulmonary medicine 2. Continue present therapy
--- NOTE | 2017-08-08 11:34 | P.PN ---
Subjective 81-year-old female brought to the emergency department by family because of altered mental status. The patient apparently had an unobserved fall. The patient subsequently developed left foot lethargy and drowsiness which she was brought to the emergency room. Apparently chest x-ray showed evidence of pneumoperitoneum. Today is postop day #2. The patient had a small bowel resection with exploratory laparotomy. She also had a washout because of a perforation and abscess formation. Today she's developed some partial collapse or infiltrate in the right lung. She is really not mobilizing secretions not taking deep breaths or using her incentive spirometer. I asked the nurse to go ahead and do chest physiotherapy to the right side may sure that she was on updrafts 4 times a day and when necessary and also encourage the incentive spirometry every hour while awake. The patient's currently on O2 at 5 L nasal cannula getting an IV of D5.45 with 20 of potassium at 100 mL an hour. Again today's postop day #2. The patient is seen again today 08/08/2017 in follow-up in the intensive care unit. She is currently sitting up in the chair at the bedside. She is awake and alert in no acute distress. She does have a productive cough of pale yellow sputum. She is working well with the incentive spirometer. She is also receiving chest physiotherapy. His chest x-ray does show some slight improvement in aeration of the right upper lobe. Her urine cultures positive for E. coli. Wound cultures positive for gram-negative bacilli. She remains on Zosyn and Flagyl. Her temp is 99.9. He count 12.8. Hemoglobin 9.8. She is maintaining O2 saturations in the low 90s 4 L/m per nasal cannula. She currently has a D5 0.45 with 20 mEq of potassium chloride at 100 MLS per hour. Objective - Vital Signs Vital signs: Vital Signs Temp 99.9 F H 08/08/17 09:30 Pulse 102 H 08/08/17 10:30 Resp 44 H 08/08/17 10:30 BP 142/73 08/08/17 10:30 Pulse Ox 93 L 08/08/17 10:30 Intake & Output 08/07/17 08/08/17 08/08/17 18:59 06:59 18:59 Intake Total 1600 1550.0 800 Output Total 2100 645 280 Balance -500 905.0 520 Weight 60.8 kg 61.6 kg Intake: IV 1500 1550.0 500 D5-0.45% NaCl with KCl 1200 1200 400 20Meq/l 1,000 ml @ 100 mls/hr IV .Q10H [facility] Rx#: [id number] Magnesium Sulfate-D5w Pmx 100 100 1 gm In Dextrose/Water 1 100ml.bag @ 100 mls/hr IVPB Q1H [facility] Rx#: [id number] Piperacillin-Tazobactam 3 50.0 .375 gm In Dextrose/Water 1 50ml.bag @ 12.5 mls/hr IVPB Q8HR [facility] Rx#: [id number] metroNIDAZOLE-NS PMX 500 300 200 mg In Saline 1 100ml.bag @ 100 mls/hr IVPB Q6HR [facility] Rx#:[id number] Intake, IV Titration 100 300 Amount Piperacillin-Tazobactam 3 100 100 .375 gm In Dextrose/Water 1 50ml.bag @ 12.5 mls/hr IVPB Q8HR [facility] Rx#: [id number] Potassium Chloride 10 meq 200 Lidocaine 2% Inj 10 mg In Sodium Chloride 0.9% 100 ml @ 100 mls/hr IV Q1HR [facility] Rx#:[id number] Output: Drainage 120 Right abdomen NEAL 80 left abdomen ENAL 40 Urine 1980 645 280 Other: Voiding Method Indwelling Catheter Indwelling Catheter Indwelling Catheter - Exam No acute distress, oriented 3. HEENT examination is grossly unremarkable. Nasogastric tube in place. Mucous membranes are moist. Neck supple. Full range of motion. No adenopathy thyromegaly or neck vein distention. Cardiovascular examination reveals regular rhythm rate. Heart sounds are distant. S1-S2 normal. No murmur. Lungs reveal coarse rhonchi. Very congested sounding cough. Breath sounds equal. No wheezes or crackles. Abdomen soft without bowel sounds being heard. Extremities are intact. No cyanosis clubbing or edema. Skin without rash. Neurologic examination is nonfocal. - Labs CBC & Chem 7: 08/08/17 04:37 08/08/17 04:37 Labs: Abnormal Lab Results - Last 24 Hours (Table) 08/07/17 08/07/17 08/07/17 Range/Units 13:31 17:46 20:52 WBC (3.8-10.6) k/uL RBC (3.80-5.40) m/uL Hgb (11.4-16.0) gm/dL Hct (34.0-46.0) % Sodium (137-145) mmol/L Potassium (3.5-5.1) mmol/L Creatinine (0.52-1.04) mg/dL Glucose (74-99) mg/dL POC Glucose (mg/dL) 169 H 118 H 116 H (75-99) mg/dL Calcium (8.4-10.2) mg/dL AST (14-36) U/L Total Protein (6.3-8.2) g/dL Albumin (3.5-5.0) g/dL 08/08/17 08/08/17 08/08/17 Range/Units 04:37 04:37 07:06 WBC 12.8 H (3.8-10.6) k/uL RBC 3.23 L (3.80-5.40) m/uL Hgb 9.8 L (11.4-16.0) gm/dL Hct 30.8 L (34.0-46.0) % Sodium 136 L (137-145) mmol/L Potassium 3.4 L (3.5-5.1) mmol/L Creatinine 0.50 L (0.52-1.04) mg/dL Glucose 127 H (74-99) mg/dL POC Glucose (mg/dL) 129 H (75-99) mg/dL Calcium 7.9 L (8.4-10.2) mg/dL AST 13 L (14-36) U/L Total Protein 4.2 L (6.3-8.2) g/dL Albumin 1.9 L (3.5-5.0) g/dL 08/08/17 Range/Units 08:43 WBC (3.8-10.6) k/uL RBC (3.80-5.40) m/uL Hgb (11.4-16.0) gm/dL Hct (34.0-46.0) % Sodium (137-145) mmol/L Potassium (3.5-5.1) mmol/L Creatinine (0.52-1.04) mg/dL Glucose (74-99) mg/dL POC Glucose (mg/dL) 150 H (75-99) mg/dL Calcium (8.4-10.2) mg/dL AST (14-36) U/L Total Protein (6.3-8.2) g/dL Albumin (3.5-5.0) g/dL Microbiology - Last 24 Hours (Table) 08/05/17 15:25 Urine Culture - Final Urine,Catheterized Escherichia coli 08/05/17 21:20 Gram Stain - Preliminary Abdomen Wound Culture - Preliminary Gram Neg Bacilli Assessment and Plan Plan: Impression: #1 Acute sepsis secondary peritonitis with pneumoperitoneum from a small bowel perforation with interloop abscess status post exploratory laparotomy, lysis of adhesions, small bowel resection and anastomosis and washout of the abdomen. This is postoperative day #3. #2 Acute right lung aspiration pneumonia. Some improvement in lung volume in the right upper lobe on today's chest x-ray. #3 Urinary tract infection secondary to E. coli. #4 Abdominal wound culture positive for gram-negative bacilli. #5 History of Alzheimer's dementia. #6 History of hypertension. #7 Remote history of breast cancer. Plan: The patient was seen and evaluated by Dr. Ibarra. Her chest x-ray labs and medications were all reviewed. We'll continue with her current treatment plan. She remains on Zosyn and Flagyl. She is receiving bronchodilators. She is again encouraged regarding the increased use the incentive spirometer and cough and deep breathing exercises. She is cleared for transfer out of the intensive care unit to the surgical floor today. We will continue to follow. I performed a history and physical examination of the patient along with my nurse practitioner. I agree with the above findings and discussed the plan of care. From the pulmonary standpoint her lungs still have few scattered rhonchi more so on the right lung. She is maintaining good O2 saturations in the 90s on 4 L/m per nasal cannula.
[2017-08-08] MEDS: POTASSIUM CHLORIDE 10 MEQ, LIDOCAINE 2% INJ 10 MG in SODIUM CHLORIDE 0.9% 100 ML IV SCH ×2 (11:45→11:49)
[2017-08-08 11:56] LABS: Glucose,Whole Blood 136 mg/dL (75-99)
[2017-08-08] MEDS: KETOROLAC 30 MG/ML 1 ML VIAL IVP SCH ×3 (11:58→23:14)
--- NOTE | 2017-08-08 12:32 | P.PN ---
Subjective Principal diagnosis: Peritonitis due to small bowel perforation This 81-year-old female is status post surgery for an acute abdomen secondary to perforated small bowel. She had evidence of peritonitis with pus around the hepatic gutter. Wound culture showing some gram-negative bacilli no cultures from the pus results. Urine had E. coli. Sensitive to Zosyn. Patient's continued on Zosyn and Flagyl. She is feeling much better and complains of some abdominal pain. The patient will have increased bruising of her head on it. Patient is not narcotic kosta. She takes [place] 10 4 times a day on a regular basis. Patient does have a history of mild dementia. She is very alert today denies any nausea or and has continued abdominal pain. No bowel movement or flatus. Patient has some cough but seems to have improved. It does not sound as congested as yesterday when she talks. REVIEW OF SYSTEMS: Neuro: Denies any headaches dizziness. Psych: Some anxiety and pain Cardiac: Denies chest pain and angina palpitations. Respiratory: Denies shortness of breath cough improved. GI: Denies nausea vomiting does have abdominal pain no appetite no hunger : Denies dysuria hematuria as an IDC with good urine output Extremities: Denies pain. No edema. Skin: Intact. Constitutional: No fever, chills. Objective - Vital Signs Vital signs: Vital Signs Temp 99.8 F H 08/08/17 11:30 Pulse 105 H 08/08/17 12:00 Resp 20 08/08/17 12:00 BP 151/76 08/08/17 12:00 Pulse Ox 94 L 08/08/17 12:00 Intake & Output 08/07/17 08/08/17 08/08/17 18:59 06:59 18:59 Intake Total 1600 1550.0 1200 Output Total 2100 645 530 Balance -500 905.0 670 Weight 60.8 kg 61.6 kg Intake: IV 1500 1550.0 800 D5-0.45% NaCl with KCl 1200 1200 600 20Meq/l 1,000 ml @ 100 mls/hr IV .Q10H [facility] Rx#: [id number] Magnesium Sulfate-D5w Pmx 100 100 1 gm In Dextrose/Water 1 100ml.bag @ 100 mls/hr IVPB Q1H [facility] Rx#: [id number] Piperacillin-Tazobactam 3 50.0 .375 gm In Dextrose/Water 1 50ml.bag @ 12.5 mls/hr IVPB Q8HR [facility] Rx#: [id number] metroNIDAZOLE-NS PMX 500 300 200 100 mg In Saline 1 100ml.bag @ 100 mls/hr IVPB Q6HR [facility] Rx#:[id number] Intake, IV Titration 100 400 Amount Piperacillin-Tazobactam 3 100 100 .375 gm In Dextrose/Water 1 50ml.bag @ 12.5 mls/hr IVPB Q8HR [facility] Rx#: [id number] Potassium Chloride 10 meq 300 Lidocaine 2% Inj 10 mg In Sodium Chloride 0.9% 100 ml @ 100 mls/hr IV Q1HR [facility] Rx#:[id number] Output: Drainage 120 Right abdomen NEAL 80 left abdomen NEAL 40 Urine 1980 645 530 Other: Voiding Method Indwelling Catheter Indwelling Catheter Indwelling Catheter PHYSICAL EXAMINATION: Cooperative, at present in no acute distress. HEENT: Neck supple. No JVD. NGTube in place Chest: Chest reveals decreased airflow at the bases especially the right base and a few scattered rhonchi in the right base otherwise improved airflow Cardiac: Normal S1-S2 no gallops no murmur . Abdomen: Tender mildly protuberant guarding present no bowel sounds Extremities: No edema no tenderness Neurologically: Awake alert oriented to place and person moves both upper Rx medicine a well coordinated fashion - Labs CBC & Chem 7: 08/08/17 04:37 08/08/17 04:37 Labs: Abnormal Lab Results - Last 24 Hours (Table) 08/07/17 08/07/17 08/07/17 Range/Units 13:31 17:46 20:52 WBC (3.8-10.6) k/uL RBC (3.80-5.40) m/uL Hgb (11.4-16.0) gm/dL Hct (34.0-46.0) % Sodium (137-145) mmol/L Potassium (3.5-5.1) mmol/L Creatinine (0.52-1.04) mg/dL Glucose (74-99) mg/dL POC Glucose (mg/dL) 169 H 118 H 116 H (75-99) mg/dL Calcium (8.4-10.2) mg/dL AST (14-36) U/L Total Protein (6.3-8.2) g/dL Albumin (3.5-5.0) g/dL 08/08/17 08/08/17 08/08/17 Range/Units 04:37 04:37 07:06 WBC 12.8 H (3.8-10.6) k/uL RBC 3.23 L (3.80-5.40) m/uL Hgb 9.8 L (11.4-16.0) gm/dL Hct 30.8 L (34.0-46.0) % Sodium 136 L (137-145) mmol/L Potassium 3.4 L (3.5-5.1) mmol/L Creatinine 0.50 L (0.52-1.04) mg/dL Glucose 127 H (74-99) mg/dL POC Glucose (mg/dL) 129 H (75-99) mg/dL Calcium 7.9 L (8.4-10.2) mg/dL AST 13 L (14-36) U/L Total Protein 4.2 L (6.3-8.2) g/dL Albumin 1.9 L (3.5-5.0) g/dL 08/08/17 08/08/17 Range/Units 08:43 11:54 WBC (3.8-10.6) k/uL RBC (3.80-5.40) m/uL Hgb (11.4-16.0) gm/dL Hct (34.0-46.0) % Sodium (137-145) mmol/L Potassium (3.5-5.1) mmol/L Creatinine (0.52-1.04) mg/dL Glucose (74-99) mg/dL POC Glucose (mg/dL) 150 H 136 H (75-99) mg/dL Calcium (8.4-10.2) mg/dL AST (14-36) U/L Total Protein (6.3-8.2) g/dL Albumin (3.5-5.0) g/dL Microbiology - Last 24 Hours (Table) 08/05/17 15:25 Urine Culture - Final Urine,Catheterized Escherichia coli 08/05/17 21:20 Gram Stain - Preliminary Abdomen Wound Culture - Preliminary Gram Neg Bacilli Assessment and Plan Plan: ASSESSMENT: 1. Acute peritonitis. 2. Status post perforated small bowel. 3. Status post abdominal surgery. 4. Right Lower lobe pneumonia probably aspiration. 5. Urinary tract infection with E. coli. 6. Anemia secondary to acute blood loss. 7. Hypokalemia. 8. Decreased nutritional status 9. Metabolic encephalopathy resolved 10. History of mild dementia. 11. Remote history of carcinoma of the left breast PLAN: Continue present medical regimen with the present antibiotics Zosyn and Flagyl. Hydration discontinued. Patient's receiving aggressive pulmonary spirometry, nutritional status concern. Hoping patient can resume some oral feedings and has couple days if not consider central TPN patient pain medication be increased especially because she is not narcotic kosta.
[2017-08-08 12:59] VITALS: BMI 26.5
[2017-08-08 17:08] LABS: Glucose,Whole Blood 121 mg/dL (75-99)
[2017-08-08 19:50] LABS: Glucose,Whole Blood 120 mg/dL (75-99)
[2017-08-09] MEDS: KETOROLAC 30 MG/ML 1 ML VIAL IVP SCH ×4 (04:59→23:02)
[2017-08-09] MEDS: metroNIDAZOLE-NS PMX 500 MG in SALINE 1 100ML.BAG IVPB SCH ×4 (04:59→23:02)
[2017-08-09] MEDS: D5-0.45% NACL WITH KCL 20MEQ/L 1,000 ML IV SCH ×3 (05:00→23:09)
[2017-08-09] MEDS: HYDROmorphone 2 MG/ML 1 ML SYRINGE IVP PRN ×5 (05:26→21:38)
--- NOTE | 2017-08-09 05:41 | P.PN ---
Subjective Patient is a 81-year-old white female who is status post exploratory laparotomy on 08/05/2017. She was noted to have interloop abscess and had resection of portion of the small bowel. She has 2 intraperitoneal drains placed. Patient is hemodynamically stable at this time. She has not passed any flatus. She is transferred out of the intensive care unit. Objective - Vital Signs Vital signs: Vital Signs Temp 98.5 F 08/09/17 01:41 Pulse 97 08/09/17 01:41 Resp 16 08/09/17 01:41 BP 152/72 08/09/17 01:41 Pulse Ox 94 L 08/09/17 01:41 Intake & Output 08/08/17 08/08/17 08/09/17 06:59 18:59 06:59 Intake Total 1550.0 1750 500 Output Total 645 870 Balance 905.0 880 500 Weight 61.6 kg 61.6 kg Intake: IV 1550.0 1300 450 D5-0.45% NaCl with KCl 1200 1100 350 20Meq/l 1,000 ml @ 100 mls/hr IV .Q10H [facility] Rx#: [id number] Magnesium Sulfate-D5w Pmx 100 100 1 gm In Dextrose/Water 1 100ml.bag @ 100 mls/hr IVPB Q1H [facility] Rx#: [id number] Piperacillin-Tazobactam 3 50.0 .375 gm In Dextrose/Water 1 50ml.bag @ 12.5 mls/hr IVPB Q8HR [facility] Rx#: [id number] metroNIDAZOLE-NS PMX 500 200 100 100 mg In Saline 1 100ml.bag @ 100 mls/hr IVPB Q6HR [facility] Rx#:[id number] Intake, IV Titration 450 50 Amount Piperacillin-Tazobactam 3 150 50 .375 gm In Dextrose/Water 1 50ml.bag @ 12.5 mls/hr IVPB Q8HR [facility] Rx#: [id number] Potassium Chloride 10 meq 300 Lidocaine 2% Inj 10 mg In Sodium Chloride 0.9% 100 ml @ 100 mls/hr IV Q1HR [facility] Rx#:[id number] Output: Drainage 90 Right abdomen NEAL 50 left abdomen NEAL 40 Urine 645 780 Other: Voiding Method Indwelling Catheter Indwelling Catheter Indwelling Catheter - Constitutional General appearance: Present: average body habitus - Respiratory Details: Slightly diminished breath sounds at the bases Respiratory: bilateral: CTA - Cardiovascular Rhythm: regular Heart sounds: normal: S1, S2 - Gastrointestinal Gastrointestinal Comment(s): PREVANA wound VAC in place NEAL drains serosanguineous NG tube in place General gastrointestinal: Present: absent bowel sounds - Psychiatric Psychiatric: Present: A&O x's 3, appropriate affect, intact judgment & insight - Labs CBC & Chem 7: 08/08/17 04:37 08/08/17 04:37 Labs: Abnormal Lab Results - Last 24 Hours (Table) 08/08/17 08/08/17 08/08/17 Range/Units 07:06 08:43 11:54 POC Glucose (mg/dL) 129 H 150 H 136 H (75-99) mg/dL 08/08/17 08/08/17 Range/Units 17:06 19:48 POC Glucose (mg/dL) 121 H 120 H (75-99) mg/dL Microbiology - Last 24 Hours (Table) 08/05/17 21:20 Gram Stain - Final Abdomen Wound Culture - Final Escherichia coli Klebsiella pneumoniae Assessment and Plan Plan: Impression/plan: 1. Status post small bowel resection with intraloop abscess 2. History of breast cancer 3. History of depression 4. History of hypertension Plan: 1. Pulmonary care as per pulmonary medicine 2. DC Martin 3. Ambulation with assistance
[2017-08-09 07:20] LABS: Glucose,Whole Blood 113 mg/dL (75-99)
[2017-08-09] MEDS: INSULIN LISPRO (humaLOG) 300 UNIT/3 ML VIAL SQ SCH ×4 (07:26→19:52)
[2017-08-09] MEDS: IPRATROPIUM-ALBUTEROL 3 ML NEB INHALATION SCH ×4 (07:31→19:53)
[2017-08-09 07:33] LABS: CH 31.2; CHCM 32.9; HCT 31.6 % (34.0-46.0); HDW 2.62; MCH 30.3 pg (25.0-35.0); MCHC 31.7 g/dL (31.0-37.0); MCV 95.4 fL (80.0-100.0); Mean Platelet Volume 7.2; RBC 3.31 m/uL (3.80-5.40); RDW 14.6 % (11.5-15.5); WBC 10.9 k/uL (3.8-10.6)
[2017-08-09] MEDS: HEPARIN SODIUM,PORCINE 5,000 UNIT/ML 1 ML VIAL SQ SCH ×2 (07:50→19:52)
[2017-08-09] MEDS: PIPERACILLIN-TAZOBACTAM 3.375 GM in DEXTROSE/WATER 1 50ML.BAG IVPB SCH ×3 (07:50→23:02)
[2017-08-09 07:51] LABS: ALT 29 U/L (9-52); AST 12 U/L (14-36); Alkaline Phosphatase 66 U/L (38-126); Anion Gap 7 mmol/L; Blood Urea Nitrogen 13 mg/dL (7-17); Calcium 8.1 mg/dL (8.4-10.2); Carbon Dioxide 25 mmol/L (22-30); Chloride 106 mmol/L (98-107); Glucose 110 mg/dL (74-99); Magnesium 2.2 mg/dL (1.6-2.3); Non-African American GFR(MDRD) >60 (>60 ml/min/1.73 sqM); Phosphorous 3.3 mg/dL (2.5-4.5); Potassium 3.7 mmol/L (3.5-5.1); Sodium 138 mmol/L (137-145); Total Bilirubin 0.4 mg/dL (0.2-1.3); Total Protein 4.2 g/dL (6.3-8.2)
[2017-08-09] MEDS: PANTOPRAZOLE 40 MG/10 ML VIAL IVP SCH ×2 (07:51→19:52)
[2017-08-09 11:45] LABS: Glucose,Whole Blood 130 mg/dL (75-99)
[2017-08-09 17:43] LABS: Glucose,Whole Blood 131 mg/dL (75-99)
[2017-08-09 19:49] LABS: Glucose,Whole Blood 140 mg/dL (75-99)
[2017-08-09] MEDS: LORazepam 2 MG/ML SYRINGE IV PRN (23:09)
[2017-08-10] MEDS: metroNIDAZOLE-NS PMX 500 MG in SALINE 1 100ML.BAG IVPB SCH ×4 (05:10→22:54)
[2017-08-10] MEDS: KETOROLAC 30 MG/ML 1 ML VIAL IVP SCH ×4 (05:10→22:54)
--- NOTE | 2017-08-10 05:39 | PN ---
PROGRESS NOTE CHIEF COMPLAINT: Re-evaluation. HISTORY OF PRESENT ILLNESS: A 81-year-old female who was admitted to the hospital with acute abdomen. She is status post surgery. She is actually doing very well today. REVIEW OF SYSTEMS: NEURO: Denies any headaches or dizziness. PSYCH: No anxiety. CARDIAC: No chest pain, angina, palpitation. RESPIRATORY: Denies shortness of breath. Cough is improved. GI: No nausea, vomiting, has an NG tube. Does have some abdominal pain, which is improved. No bowel movement. No flatus. Extremities reveal no pain, edema. CONSTITUTIONAL: No fever or chills. PHYSICAL EXAMINATION: Pleasant female in no distress. Vital signs reveals temperature 98.4, pulse 80, respirations 16, blood pressure 144/69, pulse ox of 95% on 2 L. HEENT: Normocephalic. NECK: No JVD. CHEST: Clear to auscultation with decreased air flow right base. Occasional rhonchi right base. Lung contreras are clear compared to previous. CARDIAC: Normal S1, S2 with no gallops, murmurs. ABDOMEN: Mildly tender. No significant rebound tenderness. Bowel sounds are absent. Extremities reveal no edema. No tenderness. NEUROLOGICALLY: Awake, alert, oriented with well-coordinated movements. The patient oriented to place, person. Well-coordinated movements. Patient does have underlying history of dementia. LABORATORY ASSESSMENT: White count 10.9, hemoglobin 10.0, platelets 331. Electrolytes, BUN, creatinine are normal. Blood sugar is adequately controlled. ASSESSMENT: 1. Acute abdomen, post surgery. 2. Peritonitis on IV antibiotics. 3. Probable right lower lobe aspiration pneumonia, improving. 4. Anemia secondary to acute blood loss. 5. Dementia. 6. Toxic encephalopathy, resolved. PLAN: Patient is stable. Continue present medical regimen. Patient's condition discussed with the patient. Prognosis is guarded. NG tube is continued as patient still has no bowel sounds. Prognosis remains guarded. MMODL / IJN: [id number] /
[2017-08-10] MEDS: HYDROmorphone 2 MG/ML 1 ML SYRINGE IVP PRN ×5 (06:24→22:55)
[2017-08-10 06:49] LABS: Glucose,Whole Blood 105 mg/dL (75-99)
[2017-08-10 06:51] LABS: CH 30.1; CHCM 31.9; HCT 28.7 % (34.0-46.0); HDW 2.58; HGB 9.5 gm/dL (11.4-16.0); MCH 31.2 pg (25.0-35.0); MCHC 32.9 g/dL (31.0-37.0); MCV 94.8 fL (80.0-100.0); Mean Platelet Volume 6.6; RBC 3.03 m/uL (3.80-5.40); WBC 10.3 k/uL (3.8-10.6)
[2017-08-10 07:02] LABS: ALT 29 U/L (9-52); AST 15 U/L (14-36); Alkaline Phosphatase 62 U/L (38-126); Anion Gap 7 mmol/L; Blood Urea Nitrogen 14 mg/dL (7-17); Calcium 8.3 mg/dL (8.4-10.2); Carbon Dioxide 27 mmol/L (22-30); Chloride 106 mmol/L (98-107); Glucose 99 mg/dL (74-99); Non-African American GFR(MDRD) >60 (>60 ml/min/1.73 sqM); Phosphorous 3.2 mg/dL (2.5-4.5); Potassium 3.6 mmol/L (3.5-5.1); Sodium 140 mmol/L (137-145); Total Bilirubin 0.3 mg/dL (0.2-1.3); Total Protein 4.2 g/dL (6.3-8.2)
[2017-08-10] MEDS: IPRATROPIUM-ALBUTEROL 3 ML NEB INHALATION SCH ×4 (08:49→20:12)
[2017-08-10] MEDS: PIPERACILLIN-TAZOBACTAM 3.375 GM in DEXTROSE/WATER 1 50ML.BAG IVPB SCH ×3 (10:02→22:54)
[2017-08-10] MEDS: HEPARIN SODIUM,PORCINE 5,000 UNIT/ML 1 ML VIAL SQ SCH ×2 (10:02→20:04)
[2017-08-10] MEDS: INSULIN LISPRO (humaLOG) 300 UNIT/3 ML VIAL SQ SCH ×4 (10:02→22:40)
[2017-08-10] MEDS: PANTOPRAZOLE 40 MG/10 ML VIAL IVP SCH ×2 (10:03→20:04)
--- NOTE | 2017-08-10 10:39 | P.PN ---
Subjective 81-year-old female being seen on rounds this morning physical therapy at the bedside. Nursing documents moderate formed stool this morning. Nasal gastric tube is clamped. Bowel tones present. Patient's pleasant cooperative reports no nausea vomiting. Hemoglobin this morning 9.5 white count 10.3 AST and ALT are not elevated electrolytes within normal limits Patient is postop to July exploratory laparotomy, lysis of adhesions, small bowel resection and partial of the abdomen Objective - Vital Signs Vital signs: Vital Signs Temp 98.5 F 08/10/17 07:00 Pulse 88 08/10/17 09:20 Resp 16 08/10/17 07:00 BP 143/85 08/10/17 07:00 Pulse Ox 96 08/10/17 07:00 Intake & Output 08/09/17 08/10/17 08/10/17 18:59 06:59 18:59 Intake Total 1300 Output Total 700 150 Balance -700 1150 Intake: IV 1250 D5-0.45% NaCl with KCl 1150 20Meq/l 1,000 ml @ 100 mls/hr IV .Q10H [facility] Rx#: [id number] metroNIDAZOLE-NS PMX 500 100 mg In Saline 1 100ml.bag @ 100 mls/hr IVPB Q6HR [facility] Rx#:[id number] Intake, IV Titration 50 Amount Piperacillin-Tazobactam 3 50 .375 gm In Dextrose/Water 1 50ml.bag @ 12.5 mls/hr IVPB Q8HR [facility] Rx#: [id number] Output: Gastric Drainage 300 100 Drainage 50 50 Right abdomen NEAL 30 30 left abdomen NEAL 20 20 Urine 350 Uretheral (Martin) 200 Other: Voiding Method Indwelling Catheter Toilet # Voids 2 # Bowel Movements 1 - Exam Physical exam 81-year-old female pleasant cooperative oriented to self and place Lungs diminished at the bases otherwise adequate air movement no cough noted Heart S1-S2 audible and regular Abdomen slight surgical tenderness noted no nausea no vomiting NEAL drains in place serosanguineous drainage, nasal gastric tube in place clamped pervana wound VAC in place a few hypoactive bowel tones present Extremities no edema noted - Labs CBC & Chem 7: 08/10/17 06:11 08/10/17 06:11 Labs: Abnormal Lab Results - Last 24 Hours (Table) 08/09/17 08/09/17 08/09/17 Range/Units 11:42 16:55 19:47 RBC (3.80-5.40) m/uL Hgb (11.4-16.0) gm/dL Hct (34.0-46.0) % POC Glucose (mg/dL) 130 H 131 H 140 H (75-99) mg/dL Calcium (8.4-10.2) mg/dL Total Protein (6.3-8.2) g/dL Albumin (3.5-5.0) g/dL 08/10/17 08/10/17 08/10/17 Range/Units 06:11 06:11 06:40 RBC 3.03 L (3.80-5.40) m/uL Hgb 9.5 L (11.4-16.0) gm/dL Hct 28.7 L (34.0-46.0) % POC Glucose (mg/dL) 105 H (75-99) mg/dL Calcium 8.3 L (8.4-10.2) mg/dL Total Protein 4.2 L (6.3-8.2) g/dL Albumin 2.1 L (3.5-5.0) g/dL Microbiology - Last 24 Hours (Table) 08/05/17 21:20 Anaerobic Culture - Preliminary Abdomen Anaerobic Gram Positive Cocci Anaerobic Gm Negative Bacilli Assessment and Plan Plan: Impression Acute encephalopathy suspect toxic present on admission CAT scan abdomen and pelvis shows free air with diffuse peritonitis Present on admission diffuse peritonitis with sepsis Status post 05 of August small bowel perforation exploratory laparotomy, lysis of adhesions, small bowel resection, washout of the abdomen, perihepatic collection of pus Baseline dementia cognitive impairment History of left breast cancer status post chemo treatment 1999 Suspect Aspiration pneumonia present on admission Present on admission acute dehydration resolved acute Pneumoperitoneum Wound culture shows gram-negative bacilli Present on admission UTI with E. coli Plan Plan for nasal gastric tube now check residuals and 4 hours if less than 100 nasal gastric tube will be removed diet will be initiated clear liquid Continue postop surgical care Pain control DVT and GI prophylaxis PT OT when appropriate daughter is requesting possible subacute rehab when medically stable Continue IV antibiotic Flagyl and Zosyn Monitor the intake and output Further surgical recommendations pending The above impression and plan of care have been discussed and directed by signing physician. Jennifer Turcios nurse practitioner acting as scribe for signing physician.
[2017-08-10] MEDS: SODIUM CHLORIDE 0.9% 1,000 ML IV SCH (10:57)
[2017-08-10 11:52] LABS: Glucose,Whole Blood 126 mg/dL (75-99)
[2017-08-10] MEDS: LORazepam 2 MG/ML SYRINGE IV PRN ×2 (13:26→20:52)
[2017-08-10] MEDS: D5-0.45% NACL WITH KCL 20MEQ/L 1,000 ML IV SCH ×2 (14:07→22:55)
--- NOTE | 2017-08-10 16:06 | P.PN ---
Subjective Principal diagnosis: Gen. appearance. The patient is in No acute distress, oriented 1-2 and there is some baseline confusion due to her underlying dementia. HEENT examination is grossly unremarkable. Nasogastric tube in place. Mucous membranes are moist. Neck supple. Full range of motion. No adenopathy thyromegaly or neck vein distention. Cardiovascular examination reveals regular rhythm rate. Heart sounds are distant. S1-S2 normal. No murmur. Lungs reveal coarse rhonchi. Very congested sounding cough. Breath sounds equal. No wheezes or crackles. Abdomen the patient has sluggish bowel sounds. The patient has a wound VAC in place. 2 NEAL drains are also in place. No direct tenderness. No rebound tenderness or guarding. Wounds are all clean and intact. Extremities are intact. No cyanosis clubbing or edema. Skin without rash. Neurologic examination is nonfocal. The patient has waxing and waning mentation due to her underlying dementia. Neurologic exam is nonfocal and the patient is moving all 4 extremities without any limitation. Skeletal exam there is no obvious fractures or joint deformities 81-year-old female brought to the emergency department by family because of altered mental status. The patient apparently had an unobserved fall. The patient subsequently developed left foot lethargy and drowsiness which she was brought to the emergency room. Apparently chest x-ray showed evidence of pneumoperitoneum. . The patient had a small bowel resection with exploratory laparotomy. She also had a washout because of a perforation and abscess formation. Today she's developed some partial collapse or infiltrate in the right lung. On 08/10/2017 I'm seeing this patient in follow-up. I reviewed the events that led to this patient's being operated on. Today she is postop day #5. NG tube is in place. The patient was taken off oxygen. The chest x-ray from 2016 was reviewed and the patient has extensive constellation of the right more than left. It's very important to obtain a follow-up x-ray to make sure resolution of this pulmonary infiltration. Clinically however she is doing better. No respiratory distress. She is pleasantly confused. I was told by family members that the patient has underlying dementia. She has been passing any flatus or bowel movements.. The patient has 2 NEAL drains and a wound VAC in place. No abdominal distention. No nausea. No vomiting. NG tube is in place and output was also noted. The postoperative diagnosis was consistent with small bowel necrosis/mucosal abscess formation without evidence of any malignancy. Meanwhile, the patient's hemoglobin is at 9.5. No significant leukocytosis. Electrodes are all within normal limits. The patient is also on a combination of Zosyn and Flagyl for now. The urine culture at shown E. coli. The intra-abdominal cultures showing E. coli and Klebsiella sensitive to Zosyn. Objective - Vital Signs Vital signs: Vital Signs Temp 98.0 F 08/10/17 14:15 Pulse 106 H 08/10/17 14:15 Resp 16 08/10/17 14:15 BP 155/83 08/10/17 14:15 Pulse Ox 92 L 08/10/17 14:15 Intake & Output 08/09/17 08/10/17 08/10/17 18:59 06:59 18:59 Intake Total 1300 Output Total 700 150 150 Balance -700 1150 -150 Weight 61.6 kg Intake: IV 1250 D5-0.45% NaCl with KCl 1150 20Meq/l 1,000 ml @ 100 mls/hr IV .Q10H [facility] Rx#: [id number] metroNIDAZOLE-NS PMX 500 100 mg In Saline 1 100ml.bag @ 100 mls/hr IVPB Q6HR [facility] Rx#:[id number] Intake, IV Titration 50 Amount Piperacillin-Tazobactam 3 50 .375 gm In Dextrose/Water 1 50ml.bag @ 12.5 mls/hr IVPB Q8HR [facility] Rx#: [id number] Output: Gastric Drainage 300 100 100 Drainage 50 50 50 Right abdomen NEAL 30 30 30 left abdomen NEAL 20 20 20 Urine 350 Uretheral (Martin) 200 Other: Voiding Method Indwelling Catheter Toilet # Voids 2 # Bowel Movements 1 - Labs CBC & Chem 7: 08/10/17 06:11 08/10/17 06:11 Labs: Abnormal Lab Results - Last 24 Hours (Table) 08/09/17 08/09/17 08/10/17 Range/Units 16:55 19:47 06:11 RBC 3.03 L (3.80-5.40) m/uL Hgb 9.5 L (11.4-16.0) gm/dL Hct 28.7 L (34.0-46.0) % POC Glucose (mg/dL) 131 H 140 H (75-99) mg/dL Calcium (8.4-10.2) mg/dL Total Protein (6.3-8.2) g/dL Albumin (3.5-5.0) g/dL 08/10/17 08/10/17 08/10/17 Range/Units 06:11 06:40 11:34 RBC (3.80-5.40) m/uL Hgb (11.4-16.0) gm/dL Hct (34.0-46.0) % POC Glucose (mg/dL) 105 H 126 H (75-99) mg/dL Calcium 8.3 L (8.4-10.2) mg/dL Total Protein 4.2 L (6.3-8.2) g/dL Albumin 2.1 L (3.5-5.0) g/dL Microbiology - Last 24 Hours (Table) 08/05/17 21:20 Anaerobic Culture - Final Abdomen Anaerobic Gram Positive Cocci Anaerobic Gm Negative Bacilli Assessment and Plan Plan: #1 Acute sepsis secondary peritonitis with pneumoperitoneum from a small bowel perforation with interloop abscess status post exploratory laparotomy, lysis of adhesions, small bowel resection and anastomosis and washout of the abdomen. This is postoperative day #5. #2 Acute right lung aspiration pneumonia with extensive consolidation of the right lung compared to the left. Last chest x-ray was done on 12/08/2016 in the follow-up chest x-ray be obtained for tomorrow. Meanwhile the patient on a combination of Zosyn and Flagyl. #3 Urinary tract infection secondary to E. coli. #4 peritonitis with intra-abdominal wound cultures being positive for Klebsiella and E. coli and the patient is currently on Zosyn and Flagyl and both microorganisms are sensitive to the antibiotic. #5 History of Alzheimer's dementia. #6 History of hypertension. #7 Remote history of breast cancer. #8 chronic anemia Plan Continue current antibiotic coverage based on the available cultures and sensitivities. Monitor the output from the NEAL drains. Monitor urine output. Wound VAC as recommended by general surgery. Provide the patient incentive spirometer. The pathologic results from the surgery was noted and the patient has no malignancy and the findings are essentially consistent with necrosis of the small bowel and abscess formation. The patient still has an NG tube in place. Monitor the output. May consider remove the NG tube if the output remains minimal. This will be coordinated with general surgery. We'll follow.
[2017-08-10 17:49] LABS: Glucose,Whole Blood 137 mg/dL (75-99)
[2017-08-10 20:39] LABS: Glucose,Whole Blood 96 mg/dL (75-99)
[2017-08-11] MEDS: metroNIDAZOLE-NS PMX 500 MG in SALINE 1 100ML.BAG IVPB SCH (05:05)
[2017-08-11] MEDS: KETOROLAC 30 MG/ML 1 ML VIAL IVP SCH ×4 (05:05→23:59)
--- NOTE | 2017-08-11 06:35 | PN ---
PROGRESS NOTE CHIEF COMPLAINT: Re-evaluation. HISTORY OF PRESENT ILLNESS: This is an 81-year-old female who is status post abdominal surgery. She had acute peritonitis. The patient's abdominal cultures reveal E. coli and Klebsiella. Also some gram-positive cocci and gram-negative bacilli on the anaerobic cultures. The patient is on Zosyn and Flagyl. She is responding well to the treatment. She is feeling better. The patient has episodes of anxiety. She is having some active bowel sounds. Reported to have small bowel movement. REVIEW OF SYSTEMS: NEURO: Denies any headaches, dizziness. PSYCH: Anxiety. CARDIAC: No chest pain, angina, palpitation. RESPIRATORY: No shortness of breath, cough. GI: No nausea, vomiting. Some abdominal pain, improved. : No dysuria, hematuria. Some incontinence. EXTREMITIES: No pain. CONSTITUTIONAL: No fever, chills. PHYSICAL EXAMINATION: Pleasant female in no distress. Vital signs reveal temperature 98.5, pulse 98, respirations 16, blood pressure 143/85, pulse ox 96% on 3 L. HEENT: Normocephalic. NECK: No JVD. CHEST: Clear on auscultation with mild decreased air flow at the right base. Lung examination shows improvement. CARDIAC: Distant heart sounds S1, S2 with no gallops, murmurs. ABDOMEN: Mild tenderness with no rebound tenderness. Bowel sounds are active. Extremities reveal no edema. No tenderness. NEUROLOGICALLY: Awake, alert, oriented to place and person. Moves both upper and lower extremities adequately. LABORATORY ASSESSMENT: Hemoglobin 9.5, white count 10.3. Electrolytes pretty much normal. Potassium 3.6. Blood sugar is adequately controlled. Albumin 2.1. ASSESSMENT: 1. Acute abdomen with peritonitis secondary to perforated small bowel for uncertain etiology. 2. Anemia secondary to blood loss. 3. Probable right lower lobe aspiration pneumonia. 4. Dementia. 5. Toxic encephalopathy, resolved. 6. Urinary tract infection. PLAN: Continue present medical regimen. Patient condition discussed with the patient. Prognosis is guarded. Patient's condition is improving. Continue present medical regimen. The plan appears to be that the patient's NG tube will be removed and patient started on clear liquids. Patient's condition is guarded. Prognosis is guarded. Patient is going to require probably placement transient to going back to her place of living. MMODL / IJN: [id number] /
[2017-08-11 07:08] LABS: Glucose,Whole Blood 103 mg/dL (75-99)
[2017-08-11] MEDS: INSULIN LISPRO (humaLOG) 300 UNIT/3 ML VIAL SQ SCH ×4 (07:13→21:49)
[2017-08-11] MEDS: HYDROmorphone 2 MG/ML 1 ML SYRINGE IVP PRN (07:17)
[2017-08-11] MEDS: IPRATROPIUM-ALBUTEROL 3 ML NEB INHALATION SCH ×4 (07:22→20:06)
[2017-08-11 07:50] LABS: CH 29.7; CHCM 31.9; HCT 31.1 % (34.0-46.0); HDW 2.67; HGB 10.1 gm/dL (11.4-16.0); MCH 30.5 pg (25.0-35.0); MCHC 32.5 g/dL (31.0-37.0); MCV 93.7 fL (80.0-100.0); RBC 3.32 m/uL (3.80-5.40); RDW 14.2 % (11.5-15.5); WBC 9.5 k/uL (3.8-10.6)
[2017-08-11 08:16] LABS: ALT 17 U/L (9-52); AST 19 U/L (14-36); Alkaline Phosphatase 57 U/L (38-126); Anion Gap 7 mmol/L; Blood Urea Nitrogen 13 mg/dL (7-17); Calcium 8.3 mg/dL (8.4-10.2); Carbon Dioxide 23 mmol/L (22-30); Chloride 107 mmol/L (98-107); Glucose 105 mg/dL (74-99); Magnesium 1.8 mg/dL (1.6-2.3); Non-African American GFR(MDRD) >60 (>60 ml/min/1.73 sqM); Phosphorous 3.3 mg/dL (2.5-4.5); Sodium 137 mmol/L (137-145); Total Bilirubin 0.4 mg/dL (0.2-1.3); Total Protein 4.6 g/dL (6.3-8.2)
[2017-08-11] MEDS: PIPERACILLIN-TAZOBACTAM 3.375 GM in DEXTROSE/WATER 1 50ML.BAG IVPB SCH ×3 (08:28→23:59)
[2017-08-11] MEDS: PANTOPRAZOLE 40 MG/10 ML VIAL IVP SCH (08:28)
--- NOTE | 2017-08-11 08:31 | P.PN ---
Subjective 81-year-old female being seen on rounds this morning awake alert resting in bed nursing documents 1 small stool. Nasal gastric tube was removed yesterday low residuals after being clamped for 4 hours active bowel tones present 4. Reports no nausea vomiting. Remains afebrile temp is 98 heart rate in the 90s and the blood pressure is elevated today at 165/81 we'll recheck early nasal cannula 2 L sats are 96% the wound culture results show anaerobic gram-positive cocci and anaerobic gram-negative bacilli with E. coli Klebsiella E. coli urine culture patient has [address] with a pervana wound VAC in place White count this morning 9.1 hemoglobin 10.1 electrolytes reviewed all within normal limits postop 05 August exploratory laparotomy, lysis of adhesions, small bowel resection and partial of the abdomen with positive wound culture Objective - Vital Signs Vital signs: Vital Signs Temp 98 F 08/11/17 06:56 Pulse 96 08/11/17 07:43 Resp 18 08/11/17 06:56 BP 165/81 08/11/17 06:56 Pulse Ox 96 08/11/17 07:24 Intake & Output 08/10/17 08/11/17 08/11/17 18:59 06:59 18:59 Intake Total 800 150 Output Total 150 540 Balance 650 -390 Weight 61.6 kg Intake: IV 800 D5-0.45% NaCl with KCl 750 20Meq/l 1,000 ml @ 100 mls/hr IV .Q10H [facility] Rx#: [id number] metroNIDAZOLE-NS PMX 500 50 mg In Saline 1 100ml.bag @ 100 mls/hr IVPB Q6HR [facility] Rx#:[id number] Oral 150 Output: Gastric Drainage 100 Drainage 50 40 Right abdomen NEAL 30 15 left abdomen NEAL 20 25 Urine 500 Other: Voiding Method Bedside Commode # Voids 1 # Bowel Movements 1 - Exam Physical exam 81-year-old female pleasant cooperative oriented to self and place resting in bed just returned from using the bedside commode Lungs diminished at the bases otherwise adequate air movement no cough noted on room air Heart S1-S2 audible and regular Abdomen slight surgical tenderness noted no nausea no vomiting [address] serosanguineous drainage low output the left 25 MLS the right 15 mL's for the past 8 hours, nasal gastric tube in place clamped pervana wound VAC in place with active bowel tones present Extremities no edema noted - Labs CBC & Chem 7: 08/11/17 07:18 08/11/17 07:18 Labs: Abnormal Lab Results - Last 24 Hours (Table) 08/10/17 08/10/17 08/11/17 Range/Units 11:34 17:47 06:58 RBC (3.80-5.40) m/uL Hgb (11.4-16.0) gm/dL Hct (34.0-46.0) % Glucose (74-99) mg/dL POC Glucose (mg/dL) 126 H 137 H 103 H (75-99) mg/dL Calcium (8.4-10.2) mg/dL Total Protein (6.3-8.2) g/dL Albumin (3.5-5.0) g/dL 08/11/17 08/11/17 Range/Units 07:18 07:18 RBC 3.32 L (3.80-5.40) m/uL Hgb 10.1 L (11.4-16.0) gm/dL Hct 31.1 L (34.0-46.0) % Glucose 105 H (74-99) mg/dL POC Glucose (mg/dL) (75-99) mg/dL Calcium 8.3 L (8.4-10.2) mg/dL Total Protein 4.6 L (6.3-8.2) g/dL Albumin 2.2 L (3.5-5.0) g/dL Microbiology - Last 24 Hours (Table) 08/05/17 21:20 Anaerobic Culture - Final Abdomen Anaerobic Gram Positive Cocci Anaerobic Gm Negative Bacilli Assessment and Plan Plan: Impression Acute encephalopathy suspect toxic present on admission CAT scan abdomen and pelvis shows free air with diffuse peritonitis Present on admission diffuse peritonitis with sepsis Status post 05 of August small bowel perforation exploratory laparotomy, lysis of adhesions, small bowel resection, washout of the abdomen, perihepatic collection of pus with a positive wound culture and aerobic gram-negative bacilli gram-positive cocci, E. coli, Klebsiella pneumoniae Present on admission UTI with a positive urine culture for E. coli Baseline dementia cognitive impairment History of left breast cancer status post chemo treatment 1999 Suspect Aspiration pneumonia present on admission Present on admission acute dehydration resolved acute Pneumoperitoneum Wound culture shows gram-negative bacilli Chronic pain with narcotic dependency Plan diet will be initiated clear liquid [place] as tolerated Continue postop surgical care Pain control DVT and GI prophylaxis PT OT when appropriate daughter is requesting possible subacute rehab when medically stable Continue IV antibiotic Zosyn Monitor the intake and output Discuss with Dr. Kurt lindsay to DC Flagyl continue Zosyn Stop IV dilaudid start oral [place] home dose Further surgical recommendations pending The above impression and plan of care have been discussed and directed by signing physician. Jennifer Turcios nurse practitioner acting as scribe for signing physician.
[2017-08-11] MEDS: HEPARIN SODIUM,PORCINE 5,000 UNIT/ML 1 ML VIAL SQ SCH ×2 (08:57→21:48)
[2017-08-11] MEDS: HYDROcodone/APAP 10-325MG 1 EACH TAB PO PRN ×2 (10:49→18:29)
[2017-08-11] MEDS: LORazepam 2 MG/ML SYRINGE IV PRN ×2 (11:22→19:39)
[2017-08-11 12:04] LABS: Glucose,Whole Blood 97 mg/dL (75-99)
[2017-08-11] MEDS: D5-0.45% NACL WITH KCL 20MEQ/L 1,000 ML IV SCH ×2 (16:52→19:33)
[2017-08-11 16:59] LABS: Glucose,Whole Blood 118 mg/dL (75-99)
--- NOTE | 2017-08-11 17:27 | P.PN ---
<Letty Ruiz M - Last Filed: 08/11/17 17:07> Subjective Principal diagnosis: This is a 81-year-old female status post exploratory laparotomy, lysis of adhesions and small bowel resection, postop day 6. On 08/11/2017 patient seen in pulmonary rounds for follow-up on acute right lung aspiration pneumonia. Flagyl was discontinued today per Dr. Hicks and Dr. Jun Renner, patient continues on Zosyn. Microbiology is positive for E. coli in the urine culture, Klebsiella and E. coli as well as anaerobic gram-positive cocci and anaerobic gram-negative bacilli in the abdominal wound cultures. Patient is seen resting in bed comfortably, alert and in no acute distress. The NG tube has been discontinued per surgery, patient has positive bowel sounds and was initiated on an oral diet of clear liquids. She denies nausea vomiting or diarrhea. She denies any specific respiratory complaints. She needs additional encouragement with her incentive spirometer. Her IS effort is 750-1000. She is afebrile, hemodynamically stable, pain is under good control. No wheezing, no rails or rhonchi auscultated. She is on room air with oxygen saturation around 98%. Objective - Vital Signs Vital signs: Vital Signs Temp 97.7 F 08/11/17 15:15 Pulse 101 H 08/11/17 16:00 Resp 17 08/11/17 16:00 BP 160/76 08/11/17 15:15 Pulse Ox 98 08/11/17 15:15 Intake & Output 08/10/17 08/11/17 08/11/17 18:59 06:59 18:59 Intake Total 800 150 600 Output Total 150 540 50 Balance 650 -390 550 Weight 61.6 kg 61.6 kg Intake: IV 800 600 D5-0.45% NaCl with KCl 750 500 20Meq/l 1,000 ml @ 100 mls/hr IV .Q10H [facility] Rx#: [id number] metroNIDAZOLE-NS PMX 500 50 100 mg In Saline 1 100ml.bag @ 100 mls/hr IVPB Q6HR [facility] Rx#:[id number] Oral 150 Output: Gastric Drainage 100 Drainage 50 40 50 Right abdomen NEAL 30 15 left abdomen NEAL 20 25 50 Urine 500 Other: Voiding Method Bedside Commode Bedside Commode # Voids 1 3 # Bowel Movements 1 - Exam Gen. appearance. The patient is in No acute distress, oriented 1-2 and there is some baseline confusion due to her underlying dementia. HEENT examination is grossly unremarkable. Mucous membranes are moist. Neck supple. Full range of motion. No adenopathy thyromegaly or neck vein distention. Cardiovascular examination reveals regular rhythm rate. Heart sounds are distant. S1-S2 normal. No murmur. Lungs diminished. Breath sounds equal. No wheezes or crackles. Abdomen the patient has sluggish bowel sounds. The patient has a wound VAC in place. 2 NEAL drains are also in place. No direct tenderness. No rebound tenderness or guarding. Wounds are all clean and intact. Extremities are intact. No cyanosis clubbing or edema. Skin without rash. Neurologic examination is nonfocal. The patient has waxing and waning mentation due to her underlying dementia. Neurologic exam is nonfocal and the patient is moving all 4 extremities without any limitation. Skeletal exam there is no obvious fractures or joint deformities - Labs CBC & Chem 7: 08/11/17 07:18 08/11/17 07:18 Labs: Abnormal Lab Results - Last 24 Hours (Table) 08/10/17 08/11/17 08/11/17 Range/Units 17:47 06:58 07:18 RBC 3.32 L (3.80-5.40) m/uL Hgb 10.1 L (11.4-16.0) gm/dL Hct 31.1 L (34.0-46.0) % Glucose (74-99) mg/dL POC Glucose (mg/dL) 137 H 103 H (75-99) mg/dL Calcium (8.4-10.2) mg/dL Total Protein (6.3-8.2) g/dL Albumin (3.5-5.0) g/dL 08/11/17 08/11/17 Range/Units 07:18 16:56 RBC (3.80-5.40) m/uL Hgb (11.4-16.0) gm/dL Hct (34.0-46.0) % Glucose 105 H (74-99) mg/dL POC Glucose (mg/dL) 118 H (75-99) mg/dL Calcium 8.3 L (8.4-10.2) mg/dL Total Protein 4.6 L (6.3-8.2) g/dL Albumin 2.2 L (3.5-5.0) g/dL Assessment and Plan Plan: #1 Acute sepsis secondary peritonitis with pneumoperitoneum from a small bowel perforation with interloop abscess status post exploratory laparotomy, lysis of adhesions, small bowel resection and anastomosis and washout of the abdomen. This is postoperative day #6. #2 Acute right lung aspiration pneumonia with extensive consolidation of the right lung compared to the left. Last chest x-ray was done on 08/08/2017 in the follow-up chest x-ray be obtained for tomorrow. The patient is on Zosyn. #3 Urinary tract infection secondary to E. coli. #4 peritonitis with intra-abdominal wound cultures being positive for Klebsiella and E. coli and the patient is currently on Zosyn. Both microorganisms are sensitive to Zosyn #5 History of Alzheimer's dementia. #6 History of hypertension. #7 Remote history of breast cancer. #8 chronic anemia Plan Continue current antibiotic coverage based on the available cultures and sensitivities. Monitor the output from the NEAL drains. Monitor urine output. Wound VAC as recommended by general surgery. Encouraged the use of incentive spirometer. The pathologic results from the surgery was noted and the patient has no malignancy and the findings are essentially consistent with necrosis of the small bowel and abscess formation. We'll follow. I performed a history & physical examination of the patient and discussed their management with my nurse practitioner, Letty Ruiz. I reviewed the nurse practitioner's note and agree with the documented findings and plan of care. <Debbie Sharma - Last Filed: 08/11/17 18:58> Objective - Vital Signs Vital signs: Vital Signs Temp 97.7 F 08/11/17 15:15 Pulse 101 H 08/11/17 16:00 Resp 17 08/11/17 16:00 BP 160/76 08/11/17 15:15 Pulse Ox 98 08/11/17 15:15 Intake & Output 08/10/17 08/11/17 08/11/17 18:59 06:59 18:59 Intake Total 800 150 600 Output Total 150 540 50 Balance 650 -390 550 Weight 61.6 kg 61.6 kg Intake: IV 800 600 D5-0.45% NaCl with KCl 750 500 20Meq/l 1,000 ml @ 100 mls/hr IV .Q10H [facility] Rx#: [id number] metroNIDAZOLE-NS PMX 500 50 100 mg In Saline 1 100ml.bag @ 100 mls/hr IVPB Q6HR [facility] Rx#:[id number] Oral 150 Output: Gastric Drainage 100 Drainage 50 40 50 Right abdomen NEAL 30 15 left abdomen NEAL 20 25 50 Urine 500 Other: Voiding Method Bedside Commode Bedside Commode # Voids 1 3 # Bowel Movements 1 - Labs CBC & Chem 7: 08/11/17 07:18 08/11/17 07:18 Labs: Abnormal Lab Results - Last 24 Hours (Table) 08/11/17 08/11/17 08/11/17 Range/Units 06:58 07:18 07:18 RBC 3.32 L (3.80-5.40) m/uL Hgb 10.1 L (11.4-16.0) gm/dL Hct 31.1 L (34.0-46.0) % Glucose 105 H (74-99) mg/dL POC Glucose (mg/dL) 103 H (75-99) mg/dL Calcium 8.3 L (8.4-10.2) mg/dL Total Protein 4.6 L (6.3-8.2) g/dL Albumin 2.2 L (3.5-5.0) g/dL 08/11/17 Range/Units 16:56 RBC (3.80-5.40) m/uL Hgb (11.4-16.0) gm/dL Hct (34.0-46.0) % Glucose (74-99) mg/dL POC Glucose (mg/dL) 118 H (75-99) mg/dL Calcium (8.4-10.2) mg/dL Total Protein (6.3-8.2) g/dL Albumin (3.5-5.0) g/dL Assessment and Plan Plan: This is a joint evaluation that was done along with the nurse practitioner. I was present at the time of the evaluation. I agree on the above-mentioned information and treatment plan. The patient is still receiving antibiotic treatment. The patient is gradually recovering from her surgery. We'll continue monitoring this patient along with the surgical team. No major respiratory distress at this point in time.
[2017-08-11] MEDS: PANTOPRAZOLE 40 MG TABLET PO SCH (17:48)
[2017-08-11 20:17] LABS: Glucose,Whole Blood 110 mg/dL (75-99)
[2017-08-12] MEDS: LORazepam 2 MG/ML SYRINGE IV PRN (01:39)
[2017-08-12] MEDS: HYDROcodone/APAP 10-325MG 1 EACH TAB PO PRN ×4 (05:32→23:51)
[2017-08-12] MEDS: D5-0.45% NACL WITH KCL 20MEQ/L 1,000 ML IV SCH (05:32)
[2017-08-12] MEDS: KETOROLAC 30 MG/ML 1 ML VIAL IVP SCH (05:35)
[2017-08-12 07:03] LABS: Glucose,Whole Blood 108 mg/dL (75-99)
[2017-08-12] MEDS: IPRATROPIUM-ALBUTEROL 3 ML NEB INHALATION SCH ×4 (07:17→19:55)
[2017-08-12] MEDS: INSULIN LISPRO (humaLOG) 300 UNIT/3 ML VIAL SQ SCH ×4 (08:19→20:24)
--- NOTE | 2017-08-12 08:37 | PN ---
PROGRESS NOTE CHIEF COMPLAINT: Re-evaluation. HISTORY OF PRESENT ILLNESS: This is a 81-year-old female, status post repair of a small-bowel perforation. The patient's pathology report shows nonspecific findings. No malignancy noted. The patient's cultures are noted and patient is on appropriate antibiotic. Flagyl can be discontinued since he has been awake. The patient will be continued on Zosyn for now. Her wounds look good. She is having bowel movements and she is tolerating clear liquids. REVIEW OF SYSTEMS: NEURO: Denies any headaches, dizziness. PSYCH: Some anxiety. CARDIAC: No chest pain, angina, palpitation. RESPIRATORY: Denies shortness of breath, cough. GI: No nausea, vomiting, abdominal pain, diarrhea. : No symptoms of dysuria, hematuria. EXTREMITIES: No pain, edema. CONSTITUTIONAL: No fever, chills. PHYSICAL EXAMINATION: Elderly female present in no distress. Vital signs reveal temperature 98, pulse 71, respirations are 18, blood pressure 165/81, pulse of 97% on 2 L. HEENT: Normocephalic. NECK: No JVD. CHEST EXAMINATION: Mild decreased effort in the right base. Otherwise, lung contreras clear. CARDIAC: Normal S1, S2 with no gallops, murmurs. ABDOMEN: Mildly tender but no rebound tenderness. Bowel sounds are active. Extremities reveal no edema, no tenderness. Neurologically awake, alert, oriented to place and person. Moves both upper and lower extremities. LABORATORY ASSESSMENT: Accu-Cheks which have normal range. Hemoglobin is 10.1. Electrolytes, BUN, and creatinine normal. Albumin 2.2. ASSESSMENT: 1. Acute anemia secondary to acute blood loss post surgery. 2. Malnutritional status with low albumin of 2.2. 3. Status post abdominal surgery. 4. Peritonitis. 5. Right lower lobe probably aspiration pneumonia. 6. Dementia. 7. Depression. 8. Remote history of carcinoma of the breast. 9. History of hypertension. PLAN: The patient at present is stable. Continue present medical regimen. Patient's condition discussed with the patient. Prognosis guarded. The patient will require placement. I did see the patient briefly in the evening too. The patient is taking a walk with an aide and feeling reasonably well. The patient will require placement for rehab. MMODL / IJN: [id number] /
[2017-08-12] MEDS: PIPERACILLIN-TAZOBACTAM 3.375 GM in DEXTROSE/WATER 1 50ML.BAG IVPB SCH (08:54)
[2017-08-12] MEDS: PANTOPRAZOLE 40 MG TABLET PO SCH ×2 (08:54→17:54)
[2017-08-12] MEDS: METOPROLOL SUCCINATE (ER) 25 MG TAB.ER.24H PO SCH (08:54)
[2017-08-12] MEDS: HEPARIN SODIUM,PORCINE 5,000 UNIT/ML 1 ML VIAL SQ SCH ×2 (08:54→20:24)
[2017-08-12] MEDS ORDERED: NON-FORMULARY DRUG (Omeprazole [Omeprazole] 20 MG) PO SCH (09:00)
[2017-08-12] MEDS: ALPRAZolam 0.5 MG TAB PO SCH ×3 (09:07→21:52)
--- NOTE | 2017-08-12 09:16 | P.PN ---
Subjective 81-year-old female being seen in rounds this morning continues to have intermittent episodes of confusion. Nursing reports patient did pull out her Buck-Clark drain last night. Currently this morning patient is awake and alert and oriented to person place no recall of event. Patient does report having chronic pain. Nursing reports patient has been able to ambulate from the bed to the bathroom with standby assist nursing documents patient did have 1 stool this morning postop 05 August exploratory laparotomy, lysis of adhesions, small bowel resection and partial of the abdomen with positive wound culture. Wound culture did show anaerobic gram-negative and positive bacilli cocci E. coli the urine culture was positive for E. coli as well. Pathology results no malignancy consistent with necrosis of the small bowel with abscess formation - Objective - Vital Signs Vital signs: Vital Signs Temp 98.8 F 08/12/17 06:57 Pulse 94 08/12/17 07:27 Resp 18 08/12/17 06:57 BP 173/74 08/12/17 06:57 Pulse Ox 95 08/12/17 06:57 Intake & Output 08/11/17 08/12/17 08/12/17 18:59 06:59 18:59 Intake Total 600 200 Output Total 50 5 Balance 550 195 Weight 61.6 kg Intake: IV 600 D5-0.45% NaCl with KCl 500 20Meq/l 1,000 ml @ 100 mls/hr IV .Q10H [facility] Rx#: [id number] metroNIDAZOLE-NS PMX 500 100 mg In Saline 1 100ml.bag @ 100 mls/hr IVPB Q6HR [facility] Rx#:[id number] Oral 200 Output: Drainage 50 5 left abdomen NEAL 50 5 Other: Voiding Method Bedside Commode Toilet # Voids 3 1 # Bowel Movements 1 3 - Exam Physical exam 81-year-old female resting in bed is oriented to person and place has moments of confusion needs to be redirected example patient was sat up on the edge of the bed she stated she needed to get up and go to the bathroom after sitting up patient states what am I supposed to do now I don't remember Lungs diminished at the bases otherwise adequate air movement bilaterally Heart S1-S2 audible regular Abdomen soft bowel tones present abdominal binder in place with a pervan wound VAC in place reportedly urinating no difficulty nursing documents 1 stool Tolerating diet Extremities no edema noted to the lower extremities - Labs CBC & Chem 7: 08/11/17 07:18 08/11/17 07:18 Labs: Abnormal Lab Results - Last 24 Hours (Table) 08/11/17 08/11/17 08/12/17 Range/Units 16:56 20:06 06:53 POC Glucose (mg/dL) 118 H 110 H 108 H (75-99) mg/dL Assessment and Plan Plan: Impression Acute encephalopathy suspect toxic present on admission CAT scan abdomen and pelvis shows free air with diffuse peritonitis Present on admission diffuse peritonitis with sepsis Status post 05 of August small bowel perforation exploratory laparotomy, lysis of adhesions, small bowel resection, washout of the abdomen, perihepatic collection of pus with a positive wound culture and aerobic gram-negative bacilli gram-positive cocci, E. coli, Klebsiella pneumoniae path report consistent with necrosis of the small bowel and abscess formation Present on admission UTI with a positive urine culture for E. coli Baseline dementia cognitive impairment History of left breast cancer status post chemo treatment 1999 Suspect Aspiration pneumonia present on admission Present on admission acute dehydration resolved acute Pneumoperitoneum Wound culture shows gram-negative bacilli Chronic pain with narcotic dependency Anxiety disorder nonspecified on Xanax at home Plan We'll start low residue diet Stop Zosyn and start Cipro as ordered Wound VAC removed per surgeon at bedside Apollo will be removed in one week outpatient follow-up visit with Restart home dose Xanax Continue postop surgical care Pain control DVT and GI prophylaxis PT OT when appropriate daughter is requesting possible subacute rehab when medically stable From a surgical perspective patient would be appropriate to proceed with a discharge within the next [address] Kurt lindsay to DC Flagyl start oral [place] home dose Further surgical recommendations pending The above impression and plan of care have been discussed and directed by signing physician. Jennifer Turcios nurse practitioner acting as scribe for signing physician.
[2017-08-12 12:10] LABS: Glucose,Whole Blood 82 mg/dL (75-99)
--- NOTE | 2017-08-12 13:28 | P.PN ---
<Letty Ruiz M - Last Filed: 08/12/17 13:12> Subjective Principal diagnosis: This is a 81-year-old female status post exploratory laparotomy, lysis of adhesions and small bowel resection, postop day 6. On 08/11/2017 patient seen in pulmonary rounds for follow-up on acute right lung aspiration pneumonia. Flagyl was discontinued today per Dr. Hicks and Dr. Jun Renner, patient continues on Zosyn. Microbiology is positive for E. coli in the urine culture, Klebsiella and E. coli as well as anaerobic gram-positive cocci and anaerobic gram-negative bacilli in the abdominal wound cultures. Patient is seen resting in bed comfortably, alert and in no acute distress. The NG tube has been discontinued per surgery, patient has positive bowel sounds and was initiated on an oral diet of clear liquids. She denies nausea vomiting or diarrhea. She denies any specific respiratory complaints. She needs additional encouragement with her incentive spirometer. Her IS effort is 750-1000. She is afebrile, hemodynamically stable, pain is under good control. No wheezing, no rails or rhonchi auscultated. She is on room air with oxygen saturation around 98%. This is a 81-year-old female status post exploratory laparotomy, lysis of adhesions and small bowel resection, postop day 6. On 08/11/2017 patient seen in pulmonary rounds for follow-up on acute right lung aspiration pneumonia. Flagyl was discontinued today per Dr. Hicks and Dr. Jun Renner, patient continues on Zosyn. Microbiology is positive for E. coli in the urine culture, Klebsiella and E. coli as well as anaerobic gram-positive cocci and anaerobic gram-negative bacilli in the abdominal wound cultures. Patient is seen resting in bed comfortably, alert and in no acute distress. The NG tube has been discontinued per surgery, patient has positive bowel sounds and was initiated on an oral diet of clear liquids. She denies nausea vomiting or diarrhea. She denies any specific respiratory complaints. She needs additional encouragement with her incentive spirometer. Her IS effort is 750-1000. She is afebrile, hemodynamically stable, pain is under good control. No wheezing, no rails or rhonchi auscultated. She is on room air with oxygen saturation around 98%. On 08/12/2017 patient is seen resting in bed, in no acute distress. She remains on room air with O2 saturations around 94%. Remains afebrile and hemodynamically stable. She has been placed on oral ciprofloxacin per surgery for the E. coli in the urine, Klebsiella and E. coli as well as anaerobic gram- positive cocci and anaerobic gram-negative bacilli in the abdominal wound cultures. She denies chest pain, shortness of breath, fever or chills. Her IS effort is around 1000 today. On examination lung sounds are clear to auscultation, no wheezes no rales or rhonchi. She is tolerating oral intake. She denies nausea or vomiting. Anticipating discharge to rehab facility in the next 24 hours. Objective - Vital Signs Vital signs: Vital Signs Temp 97.9 F 08/12/17 11:00 Pulse 90 08/12/17 11:42 Resp 18 08/12/17 11:00 BP 141/76 08/12/17 11:00 Pulse Ox 94 L 08/12/17 11:00 Intake & Output 08/11/17 08/12/17 08/12/17 18:59 06:59 18:59 Intake Total 600 200 Output Total 50 5 Balance 550 195 Weight 61.6 kg Intake: IV 600 D5-0.45% NaCl with KCl 500 20Meq/l 1,000 ml @ 100 mls/hr IV .Q10H [facility] Rx#: [id number] metroNIDAZOLE-NS PMX 500 100 mg In Saline 1 100ml.bag @ 100 mls/hr IVPB Q6HR [facility] Rx#:[id number] Oral 200 Output: Drainage 50 5 left abdomen NEAL 50 5 Other: Voiding Method Bedside Commode Toilet # Voids 3 1 # Bowel Movements 1 3 - Exam Gen. appearance. The patient is in No acute distress, oriented 1-2 and there is some baseline confusion due to her underlying dementia. HEENT examination is grossly unremarkable. Mucous membranes are moist. Neck supple. Full range of motion. No adenopathy thyromegaly or neck vein distention. Cardiovascular examination reveals regular rhythm rate. Heart sounds are distant. S1-S2 normal. No murmur. Lungs diminished. Breath sounds equal. No wheezes or crackles. Abdomen the patient has sluggish bowel sounds. The patient has a wound VAC in place. 2 NEAL drains are also in place. No direct tenderness. No rebound tenderness or guarding. Wounds are all clean and intact. Extremities are intact. No cyanosis clubbing or edema. Skin without rash. Neurologic examination is nonfocal. The patient has waxing and waning mentation due to her underlying dementia. Neurologic exam is nonfocal and the patient is moving all 4 extremities without any limitation. Skeletal exam there is no obvious fractures or joint deformities - Labs CBC & Chem 7: 08/11/17 07:18 08/11/17 07:18 Labs: Abnormal Lab Results - Last 24 Hours (Table) 08/11/17 08/11/17 08/12/17 Range/Units 16:56 20:06 06:53 POC Glucose (mg/dL) 118 H 110 H 108 H (75-99) mg/dL Assessment and Plan Plan: #1 Acute sepsis secondary peritonitis with pneumoperitoneum from a small bowel perforation with interloop abscess status post exploratory laparotomy, lysis of adhesions, small bowel resection and anastomosis and washout of the abdomen. This is postoperative day #7. #2 Acute right lung aspiration pneumonia with extensive consolidation of the right lung compared to the left. The patient is currently on oral Ciprofloxacin. #3 Urinary tract infection secondary to E. coli. #4 peritonitis with intra-abdominal wound cultures being positive for Klebsiella and E. coli and the patient is currently on ciprofloxacin to which both microorganisms are sensitive to. #5 History of Alzheimer's dementia. #6 History of hypertension. #7 Remote history of breast cancer. #8 chronic anemia Plan Continue current antibiotic coverage based on the available cultures and sensitivities. Monitor the output from the NEAL drain. Monitor urine output. Wound VAC has been removed per general surgery. Encourage the use of incentive spirometer. The pathologic results from the surgery was noted and the patient has no malignancy and the findings are essentially consistent with necrosis of the small bowel and abscess formation. From pulmonary standpoint patient would be appropriate to proceed with a discharge to rehab facility in the next 24 hours. I performed a history & physical examination of the patient and discussed their management with my nurse practitioner, Letty Ruiz. I reviewed the nurse practitioner's note and agree with the documented findings and plan of care. <Debbie Sharma - Last Filed: 08/12/17 14:37> Objective - Vital Signs Vital signs: Vital Signs Temp 97.9 F 08/12/17 11:00 Pulse 90 08/12/17 11:42 Resp 18 08/12/17 11:00 BP 141/76 08/12/17 11:00 Pulse Ox 94 L 08/12/17 11:00 Intake & Output 08/11/17 08/12/17 08/12/17 18:59 06:59 18:59 Intake Total 600 200 Output Total 50 5 Balance 550 195 Weight 61.6 kg 61.6 kg Intake: IV 600 D5-0.45% NaCl with KCl 500 20Meq/l 1,000 ml @ 100 mls/hr IV .Q10H [facility] Rx#: [id number] metroNIDAZOLE-NS PMX 500 100 mg In Saline 1 100ml.bag @ 100 mls/hr IVPB Q6HR [facility] Rx#:[id number] Oral 200 Output: Drainage 50 5 left abdomen NEAL 50 5 Other: Voiding Method Bedside Commode Toilet # Voids 3 1 5 # Bowel Movements 1 3 4 - Labs CBC & Chem 7: 08/11/17 07:18 08/11/17 07:18 Labs: Abnormal Lab Results - Last 24 Hours (Table) 08/11/17 08/11/17 08/12/17 Range/Units 16:56 20:06 06:53 POC Glucose (mg/dL) 118 H 110 H 108 H (75-99) mg/dL Assessment and Plan Plan: On 08/12/2017 I'm seeing this patient for a follow-up. This is a joint evaluation that was done along with a nurse practitioner. I attest for the above-mentioned formation. I noted that the patient was placed on ciprofloxacin by general surgery. Noted the patient has gram-negative and anaerobic growth in her abdomen. Based on that'll make recommendations to switch this patient to oral Augmentin and ciprofloxacin. Augmentin we'll give this patient better anaerobic and gram-negative coverage. Otherwise the patient is stable. She is currently afebrile hemodynamically stable pulse ox 94 % on room air. Pulmonary critical care will sign off the case. Please contact us back should there be an issue on this patient.
[2017-08-12] MEDS: CIPROFLOXACIN HCL 500 MG TAB PO SCH ×2 (15:35→20:24)
[2017-08-12 16:43] LABS: Glucose,Whole Blood 89 mg/dL (75-99)
[2017-08-12 20:06] LABS: Glucose,Whole Blood 127 mg/dL (75-99)
[2017-08-12] MEDS ORDERED: traZODone HCL 50 MG TAB PO SCH (21:00)
[2017-08-13] MEDS: HYDROcodone/APAP 10-325MG 1 EACH TAB PO PRN ×2 (07:05→12:34)
[2017-08-13 07:26] LABS: Glucose,Whole Blood 91 mg/dL (75-99)
[2017-08-13] MEDS: INSULIN LISPRO (humaLOG) 300 UNIT/3 ML VIAL SQ SCH (07:54)
[2017-08-13 08:02] VITALS: BP 148/77; RESP 17; TEMP 97.5
[2017-08-13] MEDS: PANTOPRAZOLE 40 MG TABLET PO SCH (08:12)
[2017-08-13] MEDS: HEPARIN SODIUM,PORCINE 5,000 UNIT/ML 1 ML VIAL SQ SCH (08:12)
[2017-08-13] MEDS: METOPROLOL SUCCINATE (ER) 25 MG TAB.ER.24H PO SCH (08:12)
[2017-08-13] MEDS: ALPRAZolam 0.5 MG TAB PO SCH (08:12)
--- NOTE | 2017-08-13 08:12 | PN ---
PROGRESS NOTE CHIEF COMPLAINT: Re-evaluation. HISTORY OF PRESENT ILLNESS: This is 81-year-old female who is status post surgery. The patient has acute abdomen with a perforated small bowel for unclear reason. The patient has significant peritonitis. The patient is doing well. She has underlying dementia and has a history of chronic back pain. She keeps on demanding for pain medications. However, when I sit down and discuss with her, she is agreeable to demanding less pain medication. Patient has a history of dementia and does not recall or remember that she has had surgery. REVIEW OF SYSTEMS: NEURO: Denies any headaches, dizziness. PSYCH: Anxiety. CARDIAC: No chest pain, angina, palpitation. RESPIRATORY: No shortness of breath, cough. GI: No nausea, vomiting, some abdominal pain, no diarrhea. : No symptoms of dysuria, hematuria. EXTREMITIES: Denies pain, edema. CONSTITUTIONAL: No fever, chills. PHYSICAL EXAMINATION: Pleasant female in no distress. Vital signs reveal temperature 98.8, pulse 90, respirations 18, blood pressure 173/74, pulse of 95% on room air. HEENT: Normocephalic. NECK: No JVD. CHEST: Clear to auscultation with mild decreased air flow at the right base. CARDIAC: Normal S1, S2 with no gallops, murmurs, rubs. ABDOMEN: Mildly tender. Bowel sounds active. EXTREMITIES: Reveal no edema. No tenderness. Good pulses both upper and lower extremities. Neurologically awake, alert, oriented to place, person. Moves both upper and lower extremities. LABORATORY REASSESSMENT: Accu-Cheks which are in good range. ASSESSMENT: 1. Status post abdominal surgery, improving. 2. Anemia, secondary to acute blood loss. 3. Mild dementia. 4. Probable aspiration pneumonia, resolving. 5. Chronic back pain. PLAN: Patient is stable. Continue present medical regimen. Patient condition discussed with the patient and Jennifer Turcios from the Surgical Services. Patient is still on clear liquids and suggest the diet be advanced. The patient is going to require placement. She still has the bilateral drains. Wait for the surgeon's opinion regarding removal on those. Meanwhile continue present regimen. Patient's condition stable. Patient's Flagyl has been discontinued. Will continue present regimen. Patient's condition discussed with the patient. The patient was apparently switched from Zosyn to ciprofloxacin by the Surgical Service. Continue present regimen. Patient's condition discussed with the patient. Prognosis guarded. Placement pending. MMODL / IJN: [id number] /
--- NOTE | 2017-08-13 08:26 | P.DS ---
Providers Date of admission: 08/05/17 15:25 Attending physician: Susanna Correa Consults: 08/05/17 15:07 Consult Physician Routine Consulting Provider: Susanna Correa Consult Reason/Comments: pneumoperitoneum Do you want consulting provider notified?: Yes 08/05/17 22:09 Consult Physician Routine Consulting Provider: Debbie Sharma Consult Reason/Comments: icu management Do you want consulting provider notified?: Yes Primary care physician: Jeff Hicks [facility] Course: history present illness: This 81-year- old female was admitted to the hospital after being brought in the emergency room. Patient has [id number]-ko-sevndubm dementia. She had fallen twice at home. After the second fall she did not appear well. After the first fall she was actually doing fine she did eat well. Next morning the patient was again found to have fallen was weak. The daughter brings her to the hospital further evaluation revealed that she had free air in the abdomen even though she did not complain of any abdominal pain. On exam she did have tenderness with guarding and rebound. She did not have any other internal injuries. She did have an abrasion on the face and elbow. The patient white count was normal and she was afebrile. Patient was seen right away by me and then had contacted the surgeon who did see the patient within couple hours of admission and subsequently took her to the operating room. He did find a perforated small bowel etiology unclear. At the report did not show any particular pathology. She did have purulent drainage and pus in the hepatic guarded. She had good abdominal toilet and subsequently an end-to-end anastomosis of the small bowel. She did have 2 NEAL drains which were removed on 08/12/2017. The patient's incision is looking clean she still has aisha in and is requested to have them removed in one week. Dr. Rivas can remove them in his office. The patient has been eating well and having bowel movements. She does complain of back pain. She has a history of chronic back pain and problems with chronic pain. She continues to use [place]. The patient has had no fever or chills. At the time of admission patient's chest x-ray revealed right lower and left lower infiltrates. The right lower infiltrate was of significant size and felt to be a respiratory infection rather than due to the acute abdomen. It was felt the patient probably had an aspiration pneumonia. Patient during the hospital stay was treated with Zosyn and Flagyl. At the time of discharge she' ll continue with Augmentin for 1 week. Patient has chronic anxiety disorder as well. At the time of discharge condition stable. Patient has history of chronic anxiety, dementia. Final diagnosis 1. Acute abdomen with perforated small bowel of unknown etiology 2. Acute peritonitis 3. Right lower lobe aspiration pneumonia 4 toxic encephalopathy resolved 5. Urinary tract infection 6. Wnxi-id-ngolrkiv dementia Patient Condition at Discharge: Serious Plan - Discharge Summary New Discharge Prescriptions: No Action traZODone HCL [Desyrel] 50 mg PO HS Multivitamins, Thera [Multivitamin (formulary)] 1 tab PO DAILY Aspirin EC [Ecotrin Low Dose] 81 mg PO HS Ranitidine HCl [Zantac] 150 mg PO DAILY@1600 Ibuprofen [Motrin] 600 mg PO BID HYDROcodone/APAP 10-325MG [[place] 10-325] 1 tab PO TID PRN PRN Reason: Pain ALPRAZolam [Xanax] 0.5 mg PO TID busPIRone HCL 15 mg PO TID Omeprazole 20 mg PO DAILY Memantine HCl/Donepezil HCl [Namzaric 28 mg-10 mg Capsule] 1 cap PO DAILY amLODIPine [Norvasc] 5 mg PO DAILY Metoprolol Succinate (ER) [Toprol Xl] 25 mg PO DAILY Gabapentin [Neurontin] 300 mg PO DAILY Calcium Carbonate [Calcium] 600 mg PO DAILY Discharge Medication List ALPRAZolam [Xanax] 0.5 mg PO TID 08/05/17 [History] Aspirin EC [Ecotrin Low Dose] 81 mg PO HS 08/05/17 [History] Calcium Carbonate [Calcium] 600 mg PO DAILY 08/05/17 [History] Gabapentin [Neurontin] 300 mg PO DAILY 08/05/17 [History] HYDROcodone/APAP 10-325MG [[place] 10-325] 1 tab PO TID PRN 08/05/17 [History] Ibuprofen [Motrin] 600 mg PO BID 08/05/17 [History] Memantine HCl/Donepezil HCl [Namzaric 28 mg-10 mg Capsule] 1 cap PO DAILY [History] Metoprolol Succinate (ER) [Toprol Xl] 25 mg PO DAILY 08/05/17 [History] Multivitamins, Thera [Multivitamin (formulary)] 1 tab PO DAILY 08/05/17 [History ] Omeprazole 20 mg PO DAILY 08/05/17 [History] Ranitidine HCl [Zantac] 150 mg PO DAILY@1600 08/05/17 [History] amLODIPine [Norvasc] 5 mg PO DAILY 08/05/17 [History] busPIRone HCL 15 mg PO TID 08/05/17 [History] traZODone HCL [Desyrel] 50 mg PO HS 08/05/17 [History] Follow up Appointment(s)/Referral(s): Florentino Rivas MD [STAFF PHYSICIAN] - 1 Week Jeff Hicks MD [Primary Care Provider] - 1-2 days Activity/Diet/Wound Care/Special Instructions: Surgical aisha will be removed in one week and a follow-up visit with Dr. Rivas
[2017-08-13] MEDS ORDERED: AMOXIC-POT CLAV 875-125MG 1 EACH TAB PO SCH (09:00)
--- NOTE | 2017-08-13 09:15 | P.PN ---
Subjective 81-year-old female being seen this morning on rounds. Patient is pleasantly confused this morning oriented to self with redirecting can recall events patient appears in no acute distress. Patient has a history of mild to moderate dementia with memory impairment patient is being seen by the PCP bedside this morning who indicates patient is back to baseline. Dr. Hicks recommending Augmentin for 1 week. Patient is felt to be surgically appropriate to be transferred to an ECF facility when bed becomes available postop 05 August exploratory laparotomy, lysis of adhesions, small bowel resection and partial of the abdomen with positive wound culture. Wound culture did show anaerobic gram-negative and positive bacilli cocci E. coli the urine culture was positive for E. coli as well. Pathology results no malignancy consistent with necrosis of the small bowel with abscess formation Objective - Vital Signs Vital signs: Vital Signs Temp 97.5 F L 08/13/17 07:00 Pulse 105 H 08/13/17 07:00 Resp 17 08/13/17 07:00 BP 148/77 08/13/17 07:00 Pulse Ox 93 L 08/13/17 01:35 Intake & Output 08/12/17 08/13/17 08/13/17 18:59 06:59 18:59 Intake Total 200 Balance 200 Weight 61.6 kg Intake: Oral 200 Other: Voiding Method Toilet Toilet # Voids 5 1 # Bowel Movements 4 1 - Exam Physical exam 81-year-old female resting in bed pleasant cooperative oriented to self with [address] Lungs diminished at the bases otherwise adequate air movement bilaterally Heart S1-S2 audible regular Abdomen soft bowel tones present abdominal binder in place aisha to surgical site well approximated no redness dressings dry reportedly urinating no difficulty nursing documents 1 stool Tolerating diet Extremities no edema noted to the lower extremities - Labs CBC & Chem 7: 08/11/17 07:18 08/11/17 07:18 Labs: Abnormal Lab Results - Last 24 Hours (Table) 08/12/17 Range/Units 19:53 POC Glucose (mg/dL) 127 H (75-99) mg/dL Assessment and Plan Plan: Impression Acute encephalopathy suspect toxic present on admission CAT scan abdomen and pelvis shows free air with diffuse peritonitis Present on admission diffuse peritonitis with sepsis Status post 05 of August small bowel perforation exploratory laparotomy, lysis of adhesions, small bowel resection, washout of the abdomen, perihepatic collection of pus with a positive wound culture and aerobic gram-negative bacilli gram-positive cocci, E. coli, Klebsiella pneumoniae path report consistent with necrosis of the small bowel and abscess formation Present on admission UTI with a positive urine culture for E. coli Baseline dementia cognitive impairment History of left breast cancer status post chemo treatment 1999 Suspect Aspiration pneumonia present on admission Present on admission acute dehydration resolved acute Pneumoperitoneum Wound culture shows gram-negative bacilli Chronic pain with narcotic dependency Anxiety disorder nonspecified on Xanax at home Plan start low residue diet Stop Zosyn and start Cipro as ordered Wound VAC removed per surgeon at bedside Aisha will be removed in one week outpatient follow-up visit with Restart home dose Xanax Continue postop surgical care Pain control DVT and GI prophylaxis PT OT when appropriate daughter is requesting possible subacute rehab when medically stable From a surgical perspective patient would be appropriate to proceed with a discharge to [facility] The above impression and plan of care have been discussed and directed by signing physician. Jennifer Turcios nurse practitioner acting as scribe for signing physician.
[2017-08-13] MEDS: IPRATROPIUM-ALBUTEROL 3 ML NEB INHALATION SCH ×2 (09:20→12:06)
[2017-08-13 11:41] LABS: Glucose,Whole Blood 137 mg/dL (75-99)
[2017-08-13 12:09] VITALS: PULSE 80
== END 2017-08-13 13:44 | DRG 853 ==
LOC: EC 12:15 → 6SEL 15:25 → 6ICU 20:35 → 3SUR 08-08 17:25
PROVIDERS: ADMIT Surgery; ATTEND Surgery
PROC: 3E1M38Z Irrigation of Peritoneal Cavity using Irrigating Substance, Percutaneous Approach (ICD-10-PCS; 2017-08-05)
PROC: 0DB80ZZ Excision of Small Intestine, Open Approach (ICD-10-PCS; principal; 2017-08-05 19:00)
DX: A41.9 Sepsis, unspecified organism (principal); K63.1 Perforation of intestine (nontraumatic); J69.0 Pneumonitis due to inhalation of food and vomit; K65.0 Generalized (acute) peritonitis; G92 Toxic encephalopathy; K55.029 Acute infarction of small intestine, extent unspecified; D62 Acute posthemorrhagic anemia; F11.20 Opioid dependence, uncomplicated; K57.32 Diverticulitis of large intestine without perforation or abscess without bleeding; K63.0 Abscess of intestine; N39.0 Urinary tract infection, site not specified; E86.0 Dehydration; G30.9 Alzheimer's disease, unspecified; F02.80 Dementia in other diseases classified elsewhere, unspecified severity, without behavioral disturbance, psychotic disturbance, mood disturbance, and anxiety; Z66 Do not resuscitate; K66.0 Peritoneal adhesions (postprocedural) (postinfection); M19.91 Primary osteoarthritis, unspecified site; K21.9 Gastro-esophageal reflux disease without esophagitis; H35.30 Unspecified macular degeneration; K58.9 Irritable bowel syndrome, unspecified; B96.20 Unspecified Escherichia coli [E. coli] as the cause of diseases classified elsewhere; E87.6 Hypokalemia; F32.9 Major depressive disorder, single episode, unspecified; F41.9 Anxiety disorder, unspecified; S00.81XA Abrasion of other part of head, initial encounter; S50.312A Abrasion of left elbow, initial encounter; G89.29 Other chronic pain; M54.9 Dorsalgia, unspecified; I10 Essential (primary) hypertension; Z85.3 Personal history of malignant neoplasm of breast; Z90.12 Acquired absence of left breast and nipple; Z98.82 Breast implant status; Z98.42 Cataract extraction status, left eye; Z98.41 Cataract extraction status, right eye; Z96.1 Presence of intraocular lens; Z90.49 Acquired absence of other specified parts of digestive tract; Z79.1 Long term (current) use of non-steroidal anti-inflammatories (NSAID); Z79.82 Long term (current) use of aspirin; Z79.899 Other long term (current) drug therapy; Z92.21 Personal history of antineoplastic chemotherapy; Z90.710 Acquired absence of both cervix and uterus; Z87.891 Personal history of nicotine dependence; Z86.73 Personal history of transient ischemic attack (TIA), and cerebral infarction without residual deficits; W19.XXXA Unspecified fall, initial encounter; Y92.009 Unspecified place in unspecified non-institutional (private) residence as the place of occurrence of the external cause
CPT/HCPCS: 36415; 70450; 70486; 71010; 71020; 72125; 72170; 74177; 80048; 80053; 81001; 82550; 82553; 83605; 83735; 84100; 84443; 84484; 85025; 85027; 85610; 85730; 86850; 86900; 86901; 87070; 87075; 87077; 87086; 87186; 87205; 88307; 93005; 94640; 94667; 94668; 94760; 96361; 96365; 99291

== ENCOUNTER → 2017-08-19 | Outpatient (CLI) | payer MEDICARE, BC ==
[2017-08-19 17:50] LABS: Anisocytosis Slight; CH 31.4; HCT 36.4 % (34.0-46.0); HDW 2.45; HGB 11.3 gm/dL (11.4-16.0); MCH 30.7 pg (25.0-35.0); MCHC 31.1 g/dL (31.0-37.0); Macrocytosis Slight; Mean Platelet Volume 7.2; RBC 3.68 m/uL (3.80-5.40); RDW 16.6 % (11.5-15.5); WBC 8.5 k/uL (3.8-10.6)
[2017-08-19 17:57] LABS: MCV 98.8 fL (80.0-100.0)
== END | disposition home or self-care (01) ==
LOC: LABWHC1 17:26
PROVIDERS: ATTEND Surgery
DX: D64.9 Anemia, unspecified (principal)
CPT/HCPCS: 36415; 85027

== ENCOUNTER 2017-11-23 18:49 | Inpatient (IN) | payer MEDICARE, BC ==
[2017-11-23] MEDS ORDERED: SODIUM CHLORIDE 0.9% 500 ML IV ONE (19:23)
[2017-11-23] MEDS ORDERED: SODIUM CHLORIDE 0.9% 1,000 ML IV ONE (19:23)
--- NOTE | 2017-11-23 19:40 | ED ---
General Adult HPI - General Chief complaint: Altered Mental Status Stated complaint: LOW BP, SENT BY [facility] Time Seen by Provider: 11/23/17 18:57 Source: patient, family, RN notes reviewed Mode of arrival: wheelchair Limitations: no limitations - History of Present Illness Initial comments: Female with history of dementia presents with weakness, episode of confusion and lethargy. This episode happened on Thursday which was 2 days ago. Patient was momentarily altered and more confused than normal. Resolved yesterday. Today patient again was somewhat weak, not acting herself according to her daughter. States she has a mild headache. Has no other complaints otherwise. No fever chills. No cough or URI symptoms. No chest pain. No abdominal pain. No nausea vomiting or diarrhea. No fever or rash. Patient denies any focal weakness. She has recent history of perforated bowel with resection in the fall. Denies any abdominal pain today. Denies dysuria but has had some urinary frequency. - Related Data Home Medications Medication Instructions Recorded Confirmed Gabapentin [Neurontin] 300 mg PO BID 08/05/17 11/23/17 Ibuprofen [Motrin] 600 mg PO BID 08/05/17 11/23/17 Metoprolol Succinate (ER) [Toprol 25 mg PO DAILY 08/05/17 11/23/17 XL] Omeprazole 20 mg PO DAILY 08/05/17 11/23/17 amLODIPine [Norvasc] 5 mg PO DAILY 08/05/17 11/23/17 busPIRone HCL 15 mg PO TID 08/05/17 11/23/17 traZODone HCL [Desyrel] 50 mg PO HS 08/05/17 11/23/17 Aspirin [Adult Low Dose Aspirin EC] 81 mg PO HS 11/23/17 11/23/17 HYDROcodone/APAP 10-325MG [[place] 1 tab PO Q6H PRN 11/23/17 11/23/17 10-325] Ranitidine HCl 150 mg PO HS 11/23/17 11/23/17 Previous Rx's Medication Instructions Recorded ALPRAZolam [Xanax] 0.5 mg PO TID #90 08/13/17 Allergies Allergy/AdvReac Type Severity Reaction Status Date / Time No Known Allergies Allergy Verified 11/23/17 19:12 Review of Systems ROS Statement: Those systems with pertinent positive or pertinent negative responses have been documented in the HPI. ROS Other: All systems not noted in ROS Statement are negative. Past Medical History Past Medical History: Cancer, CVA/TIA, Dementia, Eye Disorder, GERD/Reflux, GI Bleed, Hypertension, Memory Impairment, Osteoarthritis (OA) Additional Past Medical History / Comment(s): tia's, macular degeneration.ibs, lt breast cancer had sx and chemo-2000 History of Any Multi-Drug Resistant Organisms: None Reported Past Surgical History: Bladder Surgery, Cholecystectomy, Hysterectomy, Tubal Ligation Additional Past Surgical History / Comment(s): lap choley, jaleesa cataracts rmoved- lens implants. cyst removedf rom epiglottis, colonoscopy, lt breast bx-lt masectomy 1999,rectocele,cystocele Past Anesthesia/Blood Transfusion Reactions: No Reported Reaction Past Psychological History: Anxiety Smoking Status: Former smoker Past Alcohol Use History: None Reported Past Drug Use History: None Reported - Past Family History Father History Unknown: Yes Additional Family Medical History / Comment(s): he left when pt was age 5. Mother Family Medical History: COPD, CVA/TIA Additional Family Medical History / Comment(s): emphysema, was heavy smoker, diverticulitis General Exam Limitations: no limitations General appearance: alert, in no apparent distress Head exam: Present: atraumatic, normocephalic Eye exam: Present: normal appearance, PERRL, EOMI ENT exam: Present: mucous membranes dry Neck exam: Present: normal inspection. Absent: tenderness, meningismus Respiratory exam: Present: rhonchi (Right middle lobe, with decreased air entry) . Absent: respiratory distress Cardiovascular Exam: Present: regular rate, normal rhythm GI/Abdominal exam: Present: soft, tenderness (Mild suprapubic tenderness). Absent: distended Extremities exam: Present: normal inspection, normal capillary refill. Absent: pedal edema, calf tenderness Back exam: Present: normal inspection, full ROM. Absent: tenderness Neurological exam: Present: alert, oriented X3, CN II-XII intact. Absent: motor sensory deficit Psychiatric exam: Present: normal affect, normal mood Skin exam: Present: warm, dry, intact. Absent: cyanosis, diaphoretic Course Vital Signs 11/23/17 11/23/17 11/23/17 18:52 19:36 20:36 Temperature 97.2 F L Pulse Rate 69 66 78 Respiratory 14 16 16 Rate Blood Pressure 100/55 89/50 115/57 O2 Sat by Pulse 94 L 96 97 Oximetry 11/23/17 11/23/17 21:36 22:36 Temperature Pulse Rate 64 66 Respiratory 17 16 Rate Blood Pressure 89/53 98/50 O2 Sat by Pulse 97 97 Oximetry EKG Findings - EKG Comments: EKG Findings:: EKG obtained at 1904 shows normal sinus rhythm, ventricular rate 60, IN interval 170, QRS duration 92, QTC 457, there is some IN depression in the lateral precordium. EKG was repeated at 2106, normal sinus rhythm, ventricular rate 63, para over 170, QRS duration 92, QTC 466, unchanged from previous EKG. Medical Decision Making - Medical Decision Making 82-year-old female presenting with episode of lethargy and generalized weakness. Patient has no real complaints. Workup reveals normal white blood cell count, temperature, hemoglobin 9.6, creatinine 1.1 albumin low at 2.8. Troponin is elevated at 0.07. No signs of urinary tract infection. Urine culture is pending. Patient is started on antibiotics. Chest x-ray obtained, there is pulmonary edema with bilateral trace effusions and worse infiltrate in the right lower lobe. Patient is started on antibiotics for community acquired pneumonia. BNP is elevated at 2000. Patient has no history of heart failure. Regarding sedative EKG changes and elevated troponin, patient does not want any invasive cardiac evaluation. She is having no chest pain. Patient has a DO NOT RESUSCITATE. She was comfortable in the room. She will be given IV Lasix for pulmonary edema, started on IV antibiotics for concern of pneumonia. Echo will be obtained. Patient will be admitted for further evaluation and treatment. - Lab Data Result diagrams: 11/23/17 19:46 11/23/17 19:46 Lab Results 11/23/17 11/23/17 11/23/17 Range/Units 19:46 19:46 19:46 WBC 10.2 (3.8-10.6) k/uL RBC 3.29 L (3.80-5.40) m/uL Hgb 9.6 L (11.4-16.0) gm/dL Hct 30.7 L (34.0-46.0) % MCV 93.3 (80.0-100.0) fL MCH 29.2 (25.0-35.0) pg MCHC 31.3 (31.0-37.0) g/dL RDW 13.8 (11.5-15.5) % Plt Count 381 (150-450) k/uL Neutrophils % 79 % Lymphocytes % 14 % Monocytes % 5 % Eosinophils % 1 % Basophils % 0 % Neutrophils # 8.0 H (1.3-7.7) k/uL Lymphocytes # 1.5 (1.0-4.8) k/uL Monocytes # 0.5 (0-1.0) k/uL Eosinophils # 0.1 (0-0.7) k/uL Basophils # 0.0 (0-0.2) k/uL PT (9.0-12.0) sec INR (<1.2) APTT (22.0-30.0) sec Sodium 136 L (137-145) mmol/L Potassium 4.1 (3.5-5.1) mmol/L Chloride 101 (98-107) mmol/L Carbon Dioxide 27 (22-30) mmol/L Anion Gap 8 mmol/L BUN 26 H (7-17) mg/dL Creatinine 1.10 H (0.52-1.04) mg/dL Est GFR (MDRD) Af Amer 58 (>60 ml/min/1.73 sqM) Est GFR (MDRD) Non-Af 48 (>60 ml/min/1.73 sqM) Glucose 105 H (74-99) mg/dL POC Glucose (mg/dL) (75-99) mg/dL POC Glu Ell Teacher ID Plasma Lactic Acid Bennie (0.7-2.0) mmol/L Calcium 9.0 (8.4-10.2) mg/dL Total Bilirubin 0.2 (0.2-1.3) mg/dL AST 14 (14-36) U/L ALT 28 (9-52) U/L Alkaline Phosphatase 61 (38-126) U/L Total Creatine Kinase 67 (30-135) U/L CK-MB (CK-2) 1.6 (0.0-2.4) ng/mL CK-MB (CK-2) Rel Index 2.4 Troponin I 0.070 H* (0.000-0.034) ng/mL NT-Pro-B Natriuret Pep pg/mL Total Protein 5.4 L (6.3-8.2) g/dL Albumin 2.8 L (3.5-5.0) g/dL Urine Color Urine Appearance (Clear) Urine pH (5.0-8.0) Ur Specific Glen (1.001-1.035) Urine Protein (Negative) Urine Glucose (UA) (Negative) Urine Ketones (Negative) Urine Blood (Negative) Urine Nitrite (Negative) Urine Bilirubin (Negative) Urine Urobilinogen (<2.0) mg/dL Ur Leukocyte Esterase (Negative) Urine WBC (0-5) /hpf Ur Squamous Epith Cells (0-4) /hpf Urine Bacteria (None) /hpf Urine Mucus (None) /hpf 11/23/17 11/23/17 11/23/17 Range/Units 19:46 19:46 20:22 WBC (3.8-10.6) k/uL RBC (3.80-5.40) m/uL Hgb (11.4-16.0) gm/dL Hct (34.0-46.0) % MCV (80.0-100.0) fL MCH (25.0-35.0) pg MCHC (31.0-37.0) g/dL RDW (11.5-15.5) % Plt Count (150-450) k/uL Neutrophils % % Lymphocytes % % Monocytes % % Eosinophils % % Basophils % % Neutrophils # (1.3-7.7) k/uL Lymphocytes # (1.0-4.8) k/uL Monocytes # (0-1.0) k/uL Eosinophils # (0-0.7) k/uL Basophils # (0-0.2) k/uL PT 9.6 (9.0-12.0) sec INR 1.0 (<1.2) APTT 23.4 (22.0-30.0) sec Sodium (137-145) mmol/L Potassium (3.5-5.1) mmol/L Chloride (98-107) mmol/L Carbon Dioxide (22-30) mmol/L Anion Gap mmol/L BUN (7-17) mg/dL Creatinine (0.52-1.04) mg/dL Est GFR (MDRD) Af Amer (>60 ml/min/1.73 sqM) Est GFR (MDRD) Non-Af (>60 ml/min/1.73 sqM) Glucose (74-99) mg/dL POC Glucose (mg/dL) (75-99) mg/dL POC Glu Ell Teacher ID Plasma Lactic Acid Bennie 2.0 (0.7-2.0) mmol/L Calcium (8.4-10.2) mg/dL Total Bilirubin (0.2-1.3) mg/dL AST (14-36) U/L ALT (9-52) U/L Alkaline Phosphatase (38-126) U/L Total Creatine Kinase (30-135) U/L CK-MB (CK-2) (0.0-2.4) ng/mL CK-MB (CK-2) Rel Index Troponin I (0.000-0.034) ng/mL NT-Pro-B Natriuret Pep 2690 pg/mL Total Protein (6.3-8.2) g/dL Albumin (3.5-5.0) g/dL Urine Color Urine Appearance (Clear) Urine pH (5.0-8.0) Ur Specific Glen (1.001-1.035) Urine Protein (Negative) Urine Glucose (UA) (Negative) Urine Ketones (Negative) Urine Blood (Negative) Urine Nitrite (Negative) Urine Bilirubin (Negative) Urine Urobilinogen (<2.0) mg/dL Ur Leukocyte Esterase (Negative) Urine WBC (0-5) /hpf Ur Squamous Epith Cells (0-4) /hpf Urine Bacteria (None) /hpf Urine Mucus (None) /hpf 11/23/17 11/23/17 Range/Units 20:27 20:56 WBC (3.8-10.6) k/uL RBC (3.80-5.40) m/uL Hgb (11.4-16.0) gm/dL Hct (34.0-46.0) % MCV (80.0-100.0) fL MCH (25.0-35.0) pg MCHC (31.0-37.0) g/dL RDW (11.5-15.5) % Plt Count (150-450) k/uL Neutrophils % % Lymphocytes % % Monocytes % % Eosinophils % % Basophils % % Neutrophils # (1.3-7.7) k/uL Lymphocytes # (1.0-4.8) k/uL Monocytes # (0-1.0) k/uL Eosinophils # (0-0.7) k/uL Basophils # (0-0.2) k/uL PT (9.0-12.0) sec INR (<1.2) APTT (22.0-30.0) sec Sodium (137-145) mmol/L Potassium (3.5-5.1) mmol/L Chloride (98-107) mmol/L Carbon Dioxide (22-30) mmol/L Anion Gap mmol/L BUN (7-17) mg/dL Creatinine (0.52-1.04) mg/dL Est GFR (MDRD) Af Amer (>60 ml/min/1.73 sqM) Est GFR (MDRD) Non-Af (>60 ml/min/1.73 sqM) Glucose (74-99) mg/dL POC Glucose (mg/dL) 83 (75-99) mg/dL POC Glu Ell Teacher ID LeahtipSherronArely Plasma Lactic Acid Bennie (0.7-2.0) mmol/L Calcium (8.4-10.2) mg/dL Total Bilirubin (0.2-1.3) mg/dL AST (14-36) U/L ALT (9-52) U/L Alkaline Phosphatase (38-126) U/L Total Creatine Kinase (30-135) U/L CK-MB (CK-2) (0.0-2.4) ng/mL CK-MB (CK-2) Rel Index Troponin I (0.000-0.034) ng/mL NT-Pro-B Natriuret Pep pg/mL Total Protein (6.3-8.2) g/dL Albumin (3.5-5.0) g/dL Urine Color Yellow Urine Appearance Cloudy H (Clear) Urine pH 5.5 (5.0-8.0) Ur Specific Glen 1.012 (1.001-1.035) Urine Protein Negative (Negative) Urine Glucose (UA) Negative (Negative) Urine Ketones Negative (Negative) Urine Blood Negative (Negative) Urine Nitrite Negative (Negative) Urine Bilirubin Negative (Negative) Urine Urobilinogen <2.0 (<2.0) mg/dL Ur Leukocyte Esterase Large H (Negative) Urine WBC 30 H (0-5) /hpf Ur Squamous Epith Cells 7 H (0-4) /hpf Urine Bacteria Rare H (None) /hpf Urine Mucus Rare H (None) /hpf Disposition Clinical Impression: Community acquired pneumonia, Congestive heart failure, UTI (urinary tract infection) Disposition: ADMITTED IP TO THIS [facility] Condition: Stable Referrals: Jeff Hicks MD [Primary Care Provider] - 1-2 days Decision to Admit Reason: Admit from EC Decision Date: 11/23/17 Decision Time: 23:15
[2017-11-23 20:01] LABS: Basophils % (A) 0 %; Eosinophils # (A) 0.1 k/uL (0-0.7); Eosinophils % (A) 1 %; HCT 30.7 % (34.0-46.0); HGB 9.6 gm/dL (11.4-16.0); Lymphocytes # (A) 1.5 k/uL (1.0-4.8); Lymphocytes % (A) 14 %; MCH 29.2 pg (25.0-35.0); MCHC 31.3 g/dL (31.0-37.0); MCV 93.3 fL (80.0-100.0); Mean Platelet Volume 6.5; Monocytes # (A) 0.5 k/uL (0-1.0); Monocytes % (A) 5 %; Neutrophils % (A) 79 %; Platelet Count 381 k/uL (150-450); RBC 3.29 m/uL (3.80-5.40); RDW 13.8 % (11.5-15.5); WBC 10.2 k/uL (3.8-10.6)
[2017-11-23 20:16] LABS: Partial Thromboplastin Time 23.4 sec (22.0-30.0); Prothrombin Time 9.6 sec (9.0-12.0)
[2017-11-23 20:17] LABS: Albumin 2.8 g/dL (3.5-5.0); Potassium 4.1 mmol/L (3.5-5.1); Total Bilirubin 0.2 mg/dL (0.2-1.3); Total Protein 5.4 g/dL (6.3-8.2)
[2017-11-23 20:34] LABS: Creatine Kinase MB 1.6 ng/mL (0.0-2.4)
[2017-11-23 20:35] LABS: Troponin I 0.07 ng/mL (0.000-0.034)
[2017-11-23 21:00] LABS: Appearance,Urine Cloudy (Clear); Bacteria,Urine Rare /hpf; Bilirubin,Urine Negative (Negative); Blood,Urine Negative (Negative); Color,Urine Yellow; Glucose,Urine (UA) Negative (Negative); Ketones,Urine Negative (Negative); Leukocyte Esterase,Urine Large (Negative); Mucus,Urine Rare /hpf; Nitrite,Urine Negative (Negative); PH, Urine 5.5 (5.0-8.0); Protein,Urine Negative (Negative); Specific Gravity,Urine 1.012 (1.001-1.035); Squamous Epithelial Cell,Urine 7 /hpf (0-4); Urobilinogen,Urine <2.0 mg/dL (<2.0); WBC,Urine 30 /hpf (0-5)
[2017-11-23 21:08] LABS: Glucose,Whole Blood 83 mg/dL (75-99)
[2017-11-23] MEDS ORDERED: cefTRIAXone IN SWFI 1,000 MG/10 ML SYRINGE IVP STA (21:32)
--- NOTE | 2017-11-23 22:09 | CT ---
EXAMINATION TYPE: CT brain wo con DATE OF EXAM: 11/23/2017 COMPARISON: 08/05/2017 HISTORY: Patient poor historian confusion CT DLP: 1036 mGycm Automated exposure control for dose reduction was used. FINDINGS: There is some cerebral cortical atrophy. There is no mass effect nor midline shift. There is no sign of intracranial hemorrhage. The calvarium is intact. IMPRESSION: CEREBRAL ATROPHY. NO ACUTE INTRACRANIAL ABNORMALITY. NO CHANGE. MILD CHRONIC SMALL VESSEL ISCHEMIA.
--- NOTE | 2017-11-23 22:10 | XR ---
EXAMINATION TYPE: XR chest 2V DATE OF EXAM: 11/23/2017 COMPARISON: 08/08/2017 HISTORY: Weakness TECHNIQUE: Frontal and lateral views of the chest are obtained. FINDINGS: There is patchy pulmonary edema. There are chest leads. Heart is not grossly enlarged. The re are clips at the left axilla. There is blunting of costophrenic angles. IMPRESSION: Pulmonary edema. There is a changing pattern compared to old exam. Small pleural effusio ns. I would consider the possibilities of heart failure and RDS.
--- NOTE | 2017-11-23 22:11 | XR ---
EXAMINATION TYPE: XR KUB DATE OF EXAM: 11/23/2017 COMPARISON: NONE HISTORY: Weakness and pain TECHNIQUE: Single view FINDINGS: There is no sign of intestinal obstruction or pneumoperitoneum. Fecal pattern is normal. Th ere are clips from cholecystectomy. There are chest leads. There are no pathologic calcifications ove r the kidneys. IMPRESSION: Nonacute abdomen.
[2017-11-23] MEDS ORDERED: ASPIRIN 325 MG TAB PO STA (23:57)
[2017-11-23] MEDS ORDERED: FUROSEMIDE 10 MG/ML 4 ML VIAL IV STA (23:57)
[2017-11-23] MEDS ORDERED: AZITHROMYCIN 500 MG in SODIUM CHLORIDE 0.9% 250 ML IVPB STA (23:58)
[2017-11-24] MEDS ORDERED: NALOXONE 0.4 MG/ML 1 ML VIAL IV PRN (00:32)
[2017-11-24] MEDS ORDERED: ACETAMINOPHEN TAB 325 MG TAB PO PRN (00:32)
[2017-11-24] MEDS ORDERED: METOPROLOL SUCCINATE (ER) 25 MG TAB.ER.24H PO SCH (09:00)
[2017-11-24] MEDS: HYDROcodone/APAP 10-325MG 1 EACH TAB PO PRN ×2 (09:10→16:01)
[2017-11-24] MEDS: GABAPENTIN 300 MG CAP PO SCH ×2 (09:10→21:17)
--- NOTE | 2017-11-24 09:45 | P.CRDCN ---
History of Present Illness Consult date: 11/24/17 Chief complaint: Not feeling well History of present illness: This is a pleasant 82-year-old female patient who presented to the hospital because she was not feeling well. The patient overall is a poor historian. She seems to have some underlying dementia. She stated that she was in her usual state of health until yesterday when she was doing some shopping with her daughter and she did not feel well. She denies having any symptoms of chest pain or discomfort, difficulty breathing, feeling of heart racing or fluttering, dizziness or lightheadedness or syncope. She also denies having any fever or chills. No cough or sputum production. She just feels overall weak. When she presented to the hospital, the blood work indicated anemia with a hemoglobin around 9. The chest x-ray showed findings consistent with CHF. No underlying pneumonia was seen on the chest x-ray. The BNP came in to be elevated as well. The EKG showed sinus rhythm with evidence of early repolarization. The patient never seen any supply chain consultant in the past and she is not aware of any prior history of coronary artery disease or any congestive heart failure or any cardiac arrhythmia in the past. Definitely she does have some underlying dementia. The patient was admitted to the hospital and she was started on antibiotic for possible pneumonia. She was given also some Lasix in the emergency room. On physical examination she does have crackles over the right lung base and mid lobe. No edema was noted in the lower extremities. Also she does have tachycardia. The patient also was found to have elevated creatinine of 1.5 but her baseline creatinine from late of 2016 was within normal limits. The patient does have a deviated PMB but she does not seems to be in any overt congestive heart failure at this point. She is laying flat in bed without being short of breath. She is not having any bilateral lower extremity edema indicating right heart failure. Past Medical History Past Medical History: Cancer, CVA/TIA, Dementia, Eye Disorder, GERD/Reflux, GI Bleed, Hypertension, Memory Impairment, Osteoarthritis (OA) Additional Past Medical History / Comment(s): tia's, macular degeneration.ibs, lt breast cancer had sx and chemo-2000 History of Any Multi-Drug Resistant Organisms: None Reported Past Surgical History: Bladder Surgery, Cholecystectomy, Hysterectomy, Tubal Ligation Additional Past Surgical History / Comment(s): lap choley, jaleesa cataracts rmoved- lens implants. cyst removedf rom epiglottis, colonoscopy, lt breast bx-lt masectomy 1999,rectocele,cystocele Past Anesthesia/Blood Transfusion Reactions: No Reported Reaction Past Psychological History: Anxiety Additional Psychological History / Comment(s): pt is of approx 3 years. in may moved to [place]. Smoking Status: Former smoker Past Alcohol Use History: None Reported Additional Past Alcohol Use History / Comment(s): started smoking 1964 and quit 1984, smoked 1 ppd or less Past Drug Use History: None Reported - Past Family History Father History Unknown: Yes Additional Family Medical History / Comment(s): he left when pt was age 5. Mother Family Medical History: COPD, CVA/TIA Additional Family Medical History / Comment(s): emphysema, was heavy smoker, diverticulitis Medications and Allergies Home Medications Medication Instructions Recorded Confirmed Type Gabapentin [Neurontin] 300 mg PO BID 08/05/17 11/23/17 History Ibuprofen [Motrin] 600 mg PO BID 08/05/17 11/23/17 History Metoprolol Succinate (ER) [Toprol 25 mg PO DAILY 08/05/17 11/23/17 History XL] Omeprazole 20 mg PO DAILY 08/05/17 11/23/17 History amLODIPine [Norvasc] 5 mg PO DAILY 08/05/17 11/23/17 History busPIRone HCL 15 mg PO TID 08/05/17 11/23/17 History traZODone HCL [Desyrel] 50 mg PO HS 08/05/17 11/23/17 History ALPRAZolam [Xanax] 0.5 mg PO TID #90 08/13/17 11/23/17 Rx Aspirin [Adult Low Dose Aspirin EC] 81 mg PO HS 11/23/17 11/23/17 History HYDROcodone/APAP 10-325MG [Deal 1 tab PO Q6H PRN 11/23/17 11/23/17 History 10-325] Ranitidine HCl 150 mg PO HS 11/23/17 11/23/17 History Allergies Allergy/AdvReac Type Severity Reaction Status Date / Time No Known Allergies Allergy Verified 11/23/17 19:12 Physical Exam Vitals: Vital Signs Temp Pulse Pulse Resp BP BP Pulse Ox 11/24/17 03:56 98 F 83 18 126/62 95 01/02/18 01:26 98 F 88 18 130/62 95 11/24/17 00:36 72 17 119/58 95 11/23/17 23:36 64 17 96/50 100 11/23/17 22:36 66 16 98/50 97 11/23/17 21:36 64 17 89/53 97 11/23/17 20:36 78 16 115/57 97 11/23/17 19:36 66 16 89/50 96 11/23/17 18:52 97.2 F L 69 14 100/55 94 L Intake and Output 11/23/17 11/24/17 11/24/17 22:59 06:59 14:59 Intake Total 125 120 Balance 125 120 Intake: Intake, IV Titration 125 Amount Azithromycin 500 mg In 125 Sodium Chloride 0.9% 250 ml @ 125 mls/hr IVPB ONCE STA Rx#:[id number] Oral 120 Other: # Voids 1 1 # Bowel Movements 0 Weight 57.153 kg 57.1 kg - Constitutional General appearance: no acute distress - Respiratory Respiratory: right: rales - Cardiovascular Rhythm: regular Heart sounds: normal: S1, S2 Results 11/23/17 19:46 11/23/17 19:46 Cardiac Enzymes 11/23/17 11/23/17 Range/Units 19:46 19:46 AST 14 (14-36) U/L CK-MB (CK-2) 1.6 (0.0-2.4) ng/mL Troponin I 0.070 H* (0.000-0.034) ng/mL Coagulation 11/23/17 Range/Units 19:46 PT 9.6 (9.0-12.0) sec APTT 23.4 (22.0-30.0) sec CBC 11/23/17 Range/Units 19:46 WBC 10.2 (3.8-10.6) k/uL RBC 3.29 L (3.80-5.40) m/uL Hgb 9.6 L (11.4-16.0) gm/dL Hct 30.7 L (34.0-46.0) % Plt Count 381 (150-450) k/uL Comprehensive Metabolic Panel 11/23/17 Range/Units 19:46 Sodium 136 L (137-145) mmol/L Potassium 4.1 (3.5-5.1) mmol/L Chloride 101 (98-107) mmol/L Carbon Dioxide 27 (22-30) mmol/L BUN 26 H (7-17) mg/dL Creatinine 1.10 H (0.52-1.04) mg/dL Glucose 105 H (74-99) mg/dL Calcium 9.0 (8.4-10.2) mg/dL AST 14 (14-36) U/L ALT 28 (9-52) U/L Alkaline Phosphatase 61 (38-126) U/L Total Protein 5.4 L (6.3-8.2) g/dL Albumin 2.8 L (3.5-5.0) g/dL Current Medications Generic Name Dose Route Start Last Admin Trade Name Freq PRN Reason Stop Dose Admin Acetaminophen 650 mg 11/24/17 00:32 Tylenol Tab PO Q6HR PRN Mild Pain or Fever > 100.5 Hydrocodone Bitart/Acetaminophen 1 each 11/24/17 00:34 11/24/17 09:10 Deal 10 PO 1 each Q6H PRN Administration Moderate Pain Ceftriaxone Sodium 1,000 mg 11/24/17 22:00 Rocephin IVP Q24H OSMAN Gabapentin 300 mg 11/24/17 09:00 11/24/17 09:10 Neurontin PO 300 mg BID OSMAN Administration Azithromycin 500 mg/ Sodium 250 mls @ 125 mls/hr 11/24/17 23:00 Chloride IVPB Q24H OSMAN Metoprolol Succinate 50 mg 11/24/17 09:39 Toprol Xl PO DAILY OSMAN Naloxone HCl 0.2 mg 11/24/17 00:32 Narcan IV Q2M PRN Opioid Reversal Trazodone HCl 50 mg 11/24/17 21:00 Desyrel PO HS OSMAN Intake and Output 11/23/17 11/24/17 11/24/17 22:59 06:59 14:59 Intake Total 125 120 Balance 125 120 Intake: Intake, IV Titration 125 Amount Azithromycin 500 mg In 125 Sodium Chloride 0.9% 250 ml @ 125 mls/hr IVPB ONCE STA Rx#:[id number] Oral 120 Other: # Voids 1 1 # Bowel Movements 0 Weight 57.153 kg 57.1 kg 11/23/17 19:46 11/23/17 19:46 Assessment and Plan Assessment: Assessment #1 generalized weakness #2 possible pneumonia #3 elevated BNP but the patient is not in any overt congestive heart failure #4 underlying dementia #5 sinus tachycardia Plan #1 I will increase the dose of Toprol-XL for better heart rate control #2 hold any kind of diuretics at this point in view of the elevated creatinine #3 the patient is receiving antibiotics for possible pneumonia #4 obtain an echocardiogram was Doppler #5 follow-up with the patient. Thank you for allowing us participate in her care and we'll continue following up with the patient
[2017-11-24] MEDS: busPIRone HCl 5 MG TAB PO SCH ×3 (11:33→21:17)
[2017-11-24] MEDS: ALPRAZolam 0.5 MG TAB PO SCH ×3 (11:33→21:17)
--- NOTE | 2017-11-24 12:26 | ECHOF ---
Referral Reason:chf MEASUREMENTS -------- HEIGHT: 154.9 cm WEIGHT: 56.7 kg BP: 126/62 RVIDd: 3.0 cm (< 3.3) IVSd: 1.0 cm (0.6 - 1.1) LVIDd: 4.3 cm (3.9 - 5.3) LVPWd: 1.0 cm (0.6 - 1.1) IVSs: 1.6 cm LVIDs: 2.7 cm LVPWs: 1.6 cm LA Diam: 2.9 cm (2.7 - 3.8) LAESV Index (A-L): 30.37 ml/m Ao Diam: 3.7 cm (2.0 - 3.7) AV Cusp: 2.2 cm (1.5 - 2.6) MV EXCURSION: 10.857 mm (> 18.000) MV EF SLOPE: 44 mm/s (70 - 150) EPSS: 0.7 cm MV E Trace: 1.08 m/s MV DecT: 162 ms MV A Trace: 1.33 m/s MV E/A Ratio: 0.81 RAP: 5.00 mmHg RVSP: 35.99 mmHg FINDINGS -------- Sinus rhythm. This was a technically good study. The left ventricular size is normal. Left ventricular wall thickness is normal. Overall left vent ricular systolic function is normal with, an EF between 60 - 65 %. The right ventricle is normal in size. LA is midly dilated 29-33ml/m2. The right atrium is normal in size. The aortic valve is trileaflet and appears structurally normal. There is trace to mild mitral regurgitation. Mild tricuspid regurgitation present. There is mild pulmonary hypertension. The right ventricular systolic pressure, as measured by Doppler, is 35.99mmHg. There is no pulmonic regurgitation present. The aortic root is dilated measuring 3.7cm. Normal inferior vena cava with normal inspiratory collapse consistent with estimated right atrial pre ssure of 5 mmHg. There is no pericardial effusion. CONCLUSIONS -------- 1. Sinus rhythm. 2. This was a technically good study. 3. The left ventricular size is normal. 4. Left ventricular wall thickness is normal. 5. Overall left ventricular systolic function is normal with, an EF between 60 - 65 %. 6. The right ventricle is normal in size. 7. LA is midly dilated 29-33ml/m2. 8. The right atrium is normal in size. 9. The aortic valve is trileaflet and appears structurally normal. 10. There is trace to mild mitral regurgitation. 11. Mild tricuspid regurgitation present. 12. There is mild pulmonary hypertension. 13. The right ventricular systolic pressure, as measured by Doppler, is 35.99mmHg. 14. There is no pulmonic regurgitation present. 15. The aortic root is dilated measuring 3.7cm. 16. Normal inferior vena cava with normal inspiratory collapse consistent with estimated right atrial pressure of 5 mmHg. 17. There is no pericardial effusion. BUSINESS RULES ANALYST: Faby Sánchez RDCS
[2017-11-24] MEDS: traZODone HCL 50 MG TAB PO SCH (21:17)
[2017-11-24] MEDS: cefTRIAXone IN SWFI 1,000 MG/10 ML SYRINGE IVP SCH (21:21)
[2017-11-24] MEDS: AZITHROMYCIN 500 MG in SODIUM CHLORIDE 0.9% 250 ML IVPB SCH (23:00)
--- NOTE | 2017-11-25 06:03 | HP ---
HISTORY AND PHYSICAL DATE OF ADMISSION: 11/24/2017. This is an 82-year-old white female who came to was brought to the emergency room because of mental confusion, lethargy, general weakness and shortness of breath. She was evaluated in the ER and she was found to have congestive heart failure, urinary tract infection and pneumonia and her CBC showed a WBC count of 10.2, hemoglobin 9.6, platelet count 381,000, sodium 136, potassium 4.1, BUN 26, creatinine 1.10. EKG was normal. CT of the brain, chronic small vessel disease. No acute problems. Troponin was 0.070 and BNP was markedly elevated. It was 2690. Chest x-ray showed pulmonary edema and small pleural effusion and the patient was admitted to the hospital for further evaluation and treatment. PAST MEDICAL HISTORY: Reveals that she is known to have a in dementia, hypertensive cardiovascular disease, gastroesophageal reflux disease, mental depression. CURRENT MEDICATIONS: Neurontin 300 mg p.o. b.i.d., Motrin 600 mg p.o. b.i.d., Toprol-XL 25 mg daily, omeprazole 20 mg daily, Norvasc 5 mg daily, BuSpar 1 tablet t.i.d. SOCIAL HISTORY: She does not smoke and does not drink alcohol. FAMILY HISTORY: Positive for heart disease. REVIEW OF SYSTEM: Detailed history is not obtainable from the patient as she is extremely forgetful due to the dementia. Apparently she does not have headache. Appetite has been poor lately. She has no chest pain. No cough. She has no abdominal pain. She has no polyuria or dysuria. She has no other neurologic symptoms. PHYSICAL EXAMINATION: Reveals an 82-year-old white female, well-nourished, well developed. She is very forgetful and confused. There is no jaundice. There is no generalized lymphadenopathy. No petechia or bruises. Pulse is 80 per minute and regular, blood pressure 130/76. Examination of the ENT: Neck is supple. There is no jugular venous distention. There is no goiter. There is no carotid bruit. Heart is in sinus rhythm. Lungs are clear to auscultation and percussion. ABDOMEN: Soft and nontender. There is no mass palpable. Examination of the lower extremities reveal no pitting edema. Neurologic examination does not reveal localizing signs. IMPRESSION: 1. Acute congestive heart failure. 2. Hypertensive cardiovascular disease. 3. Chest x-ray showing acute pulmonary edema and small pleural effusion. 4. Renal failure. 5. Dementia. 6. Mental depression. 7. General weakness. PLAN: Patient will be admitted to hospital. We will monitor her heart rhythm on telemetry and will have a cardiology consultation. She will be placed back on her previous home medications. We will also get a nephrology consultation. Overall prognosis is guarded. The diagnosis, prognosis and therapeutic plans were discussed in detail with the patient and also with her son. MMODL / IJN: [id number] /
[2017-11-25] MEDS: busPIRone HCl 5 MG TAB PO SCH ×3 (08:33→21:30)
[2017-11-25] MEDS: METOPROLOL SUCCINATE (ER) 50 MG TAB.ER.24H PO SCH (08:34)
[2017-11-25] MEDS: ALPRAZolam 0.5 MG TAB PO SCH ×3 (08:34→21:36)
[2017-11-25] MEDS: GABAPENTIN 300 MG CAP PO SCH ×2 (08:34→21:36)
--- NOTE | 2017-11-25 11:14 | P.PN ---
Subjective Progress Note Date: 11/25/17 This is a pleasant 82-year-old female patient who presented to the hospital because she was not feeling well. The patient overall is a poor historian. She seems to have some underlying dementia. She stated that she was in her usual state of health until yesterday when she was doing some shopping with her daughter and she did not feel well. She denies having any symptoms of chest pain or discomfort, difficulty breathing, feeling of heart racing or fluttering, dizziness or lightheadedness or syncope. She also denies having any fever or chills. No cough or sputum production. She just feels overall weak. When she presented to the hospital, the blood work indicated anemia with a hemoglobin around 9. The chest x-ray showed findings consistent with CHF. No underlying pneumonia was seen on the chest x-ray. The BNP came in to be elevated as well. The EKG showed sinus rhythm with evidence of early repolarization. The patient never seen any fagot heater helper in the past and she is not aware of any prior history of coronary artery disease or any congestive heart failure or any cardiac arrhythmia in the past. Definitely she does have some underlying dementia. The patient was admitted to the hospital and she was started on antibiotic for possible pneumonia. She was given also some Lasix in the emergency room. On physical examination she does have crackles over the right lung base and mid lobe. No edema was noted in the lower extremities. Also she does have tachycardia. The patient also was found to have elevated creatinine of 1.5 but her baseline creatinine from late of 2016 was within normal limits. 11/25/2017 Patient seen and examined this morning, appears comfortable. Blood pressure 130 /60 with a heart rate in the 80s, 90% on room air. Echocardiogram with Doppler study was performed which revealed an ejection fraction of 60-65%. Patient currently on antibiotics for possible pneumonia. Heart rate under better control today. Objective - Vital Signs Vital signs: Vital Signs Temp 97.0 F L 11/25/17 08:00 Pulse 88 11/25/17 08:00 Resp 16 11/25/17 08:00 BP 131/62 11/25/17 08:00 Pulse Ox 90 L 11/25/17 08:00 Intake & Output 11/24/17 11/25/17 11/25/17 18:59 06:59 18:59 Intake Total 600 250 120 Balance 600 250 120 Weight 57.2 kg Intake: Intake, IV Titration 250 Amount Azithromycin 500 mg In 250 Sodium Chloride 0.9% 250 ml @ 125 mls/hr IVPB Q24H [facility] Rx#:[id number] Oral 600 120 Other: Voiding Method Toilet # Voids 2 1 0 # Bowel Movements 0 0 - Exam PHYSICAL EXAMINATION: HEENT: Head is atraumatic, normocephalic. Pupils equal, round. Neck is supple. There is no elevated jugular venous pressure. HEART EXAMINATION: Heart S1, S2 normal. No murmur or gallop heard. CHEST EXAMINATION: Lungs reveal crackles to bilateral bases posteriorly. ABDOMEN: Soft, nontender. Bowel sounds are heard. No organomegaly noted. EXTREMITIES: 2+ peripheral pulses with no evidence of peripheral edema and no calf tenderness noted. NEUROLOGIC patient is awake, alert and oriented -1. . - Labs CBC & Chem 7: 11/23/17 19:46 11/23/17 19:46 Labs: Microbiology - Last 24 Hours (Table) 11/23/17 20:22 Blood Culture - Preliminary Blood No Growth after 24 hours 11/23/17 20:27 Urine Culture - Final Urine,Voided Assessment and Plan Plan: Assessment and plan Assessment #1 generalized weakness #2 possible pneumonia #3 elevated BNP but the patient is not in any overt congestive heart failure #4 underlying dementia #5 sinus tachycardia Plan Echocardiogram with Doppler study was performed which revealed normal left ventricular systolic function. Heart rate under much better control today. From cardiology's perspective, we will recommend to continue current medications. We will follow her along with you now on an as-needed basis only, please don't hesitate to call with any questions. DNP note has been reviewed, I agree with a documented findings and plan of care. Patient was seen and examined.
[2017-11-25] MEDS: HYDROcodone/APAP 10-325MG 1 EACH TAB PO PRN (13:03)
[2017-11-25] MEDS: traZODone HCL 50 MG TAB PO SCH (21:36)
[2017-11-25] MEDS: cefTRIAXone IN SWFI 1,000 MG/10 ML SYRINGE IVP SCH (22:05)
[2017-11-25] MEDS: AZITHROMYCIN 500 MG in SODIUM CHLORIDE 0.9% 250 ML IVPB SCH (22:11)
[2017-11-26] MEDS: ALPRAZolam 0.5 MG TAB PO SCH ×3 (08:18→21:34)
[2017-11-26] MEDS: busPIRone HCl 5 MG TAB PO SCH ×3 (08:18→21:36)
[2017-11-26] MEDS: METOPROLOL SUCCINATE (ER) 50 MG TAB.ER.24H PO SCH (08:19)
[2017-11-26] MEDS: GABAPENTIN 300 MG CAP PO SCH ×2 (08:19→21:35)
[2017-11-26] MEDS: HYDROcodone/APAP 10-325MG 1 EACH TAB PO PRN ×2 (08:21→18:41)
--- NOTE | 2017-11-26 16:00 | XR ---
EXAMINATION TYPE: XR chest 2V DATE OF EXAM: 11/26/2017 COMPARISON: 11/23/2017 HISTORY: Follow-up pneumonia FINDINGS: There are bilateral pleural effusions with cardiomegaly and bibasilar infiltrate. There is a diffuse interstitial pattern. Surgical clips overlying the left axilla noted. Underlying COPD suspected. Deg enerative change of the spine. Follow-up to resolution recommended to exclude a millimeter nodule. IMPRESSION: 1. There is mild interval improvement in the diffuse changes within both lungs with persistent bilate ral effusion, interstitial prominence and subsegmental consolidation. Differential include improving venous congestion. Pneumonia not excluded..
[2017-11-26 16:43] VITALS: BMI 23.7
[2017-11-26] MEDS: cefTRIAXone IN SWFI 1,000 MG/10 ML SYRINGE IVP SCH (21:34)
[2017-11-26] MEDS: traZODone HCL 50 MG TAB PO SCH (21:36)
[2017-11-26] MEDS: AZITHROMYCIN 500 MG in SODIUM CHLORIDE 0.9% 250 ML IVPB SCH (22:09)
[2017-11-27] MEDS: GABAPENTIN 300 MG CAP PO SCH ×2 (08:34→20:32)
[2017-11-27] MEDS: busPIRone HCl 5 MG TAB PO SCH ×3 (08:34→21:33)
[2017-11-27] MEDS: METOPROLOL SUCCINATE (ER) 50 MG TAB.ER.24H PO SCH (08:35)
[2017-11-27] MEDS: ALPRAZolam 0.5 MG TAB PO SCH ×3 (08:38→21:33)
--- NOTE | 2017-11-27 09:56 | XR ---
EXAMINATION TYPE: XR chest 2V DATE OF EXAM: 11/27/2017 COMPARISON: 11/26/2017 TECHNIQUE: PA and lateral views submitted. HISTORY: Follow-up pneumonia FINDINGS: Previous surgical change again noted involving the left axilla. Hyperinflation noted. There is persis tent blunting of the costophrenic angles and mild interstitial pattern. There is subsegmental changes at the lung bases. Somewhat prominent area in the medial margin the right upper lobe somewhat nodula r pattern is again noted. Degenerative change of the spine. Chronic appearing compression deformity in the lower thoracic spine . Arthropathy of the left shoulder including findings suggestive of calcific tendinitis. IMPRESSION: 1. Persistent small bilateral effusions and basilar atelectasis or infiltrate superimposed on a backg round of COPD. 2. More nodular appearing density in the medial margin of the right upper lobe for which CT scan of t he chest suggested.
[2017-11-27] MEDS: HYDROcodone/APAP 10-325MG 1 EACH TAB PO PRN ×2 (13:43→23:07)
[2017-11-27] MEDS: traZODone HCL 50 MG TAB PO SCH (20:32)
[2017-11-27] MEDS ORDERED: AZITHROMYCIN 500 MG TAB PO SCH (21:00)
[2017-11-27] MEDS: cefTRIAXone IN SWFI 1,000 MG/10 ML SYRINGE IVP SCH (21:33)
[2017-11-28 06:26] LABS: Basophils # (A) 0.1 k/uL (0-0.2); Basophils % (A) 1 %; Eosinophils # (A) 0.3 k/uL (0-0.7); Eosinophils % (A) 4 %; HCT 35.5 % (34.0-46.0); HGB 10.9 gm/dL (11.4-16.0); Hypochromasia Slight; Lymphocytes # (A) 1.6 k/uL (1.0-4.8); Lymphocytes % (A) 27 %; MCH 28.6 pg (25.0-35.0); MCHC 30.7 g/dL (31.0-37.0); Monocytes # (A) 0.5 k/uL (0-1.0); Monocytes % (A) 8 %; Neutrophils # (A) 3.4 k/uL (1.3-7.7); Neutrophils % (A) 58 %; Platelet Count 494 k/uL (150-450); RBC 3.81 m/uL (3.80-5.40); RDW 14.9 % (11.5-15.5); WBC 5.9 k/uL (3.8-10.6)
[2017-11-28 06:41] LABS: Anion Gap 8 mmol/L; Blood Urea Nitrogen 13 mg/dL (7-17); Calcium 9.8 mg/dL (8.4-10.2); Carbon Dioxide 27 mmol/L (22-30); Chloride 102 mmol/L (98-107); Glucose 98 mg/dL (74-99); Magnesium 2.1 mg/dL (1.6-2.3); Potassium 4.5 mmol/L (3.5-5.1); Sodium 137 mmol/L (137-145)
[2017-11-28] MEDS: METOPROLOL SUCCINATE (ER) 50 MG TAB.ER.24H PO SCH (09:26)
[2017-11-28] MEDS: HYDROcodone/APAP 10-325MG 1 EACH TAB PO PRN ×2 (09:26→16:11)
[2017-11-28] MEDS: ALPRAZolam 0.5 MG TAB PO SCH ×3 (09:26→21:12)
[2017-11-28] MEDS: GABAPENTIN 300 MG CAP PO SCH ×2 (09:26→20:30)
[2017-11-28] MEDS: busPIRone HCl 5 MG TAB PO SCH ×3 (09:28→21:12)
[2017-11-28] MEDS ORDERED: RX INFO: IV CONTRAST WAS GIVEN 1 EACH MISC MISCELLANE PRN (12:45)
[2017-11-28 13:15] LABS: Appearance,Urine Clear (Clear); Bilirubin,Urine Negative (Negative); Blood,Urine Negative (Negative); Color,Urine Yellow; Glucose,Urine (UA) Negative (Negative); Ketones,Urine Negative (Negative); Leukocyte Esterase,Urine Negative (Negative); Nitrite,Urine Negative (Negative); PH, Urine 6.5 (5.0-8.0); Protein,Urine Negative (Negative); Urobilinogen,Urine <2.0 mg/dL (<2.0)
--- NOTE | 2017-11-28 14:11 | PN ---
PROGRESS NOTE DATE OF SERVICE: November 28, [address] Hicks followed by Dr. Beckford and he asked me to see the patient on the weekend being biometrics consultant. The patient is NO CODE. DATA: She is a 5 foot 1 inches, 55.1 kg. BSA 1.53 m2, BMI 23.0 kg/m2. ALLERGY: Unknown. The patient is seen today evaluated and underlying history that patient has been admitted to the hospital through the emergency room and in the ER at that time was admitted by Dr. Imtiaz Barrow with the impression of community-acquired pneumonia, congestive heart failure, and urinary tract infection. Subsequently, at the time of the admission, she had large leukocyte in the urine and WBC was 30 and her urine pH was 5.5 and cloudy. Her blood sugar was 83. Her beta natriuretic peptide was 2690, which is elevated and the lactic acid was 2 and albumin 2.8. Her coagulation study was normal and PT was 9.6 and INR 1 and PTT 23.4, and her CPK was 67 and CK-MB 1.6, and CK index was 2.4. Her troponin, however, was 0.070. Total protein 5.4 on admission. She has also a set of electrolytes and the sodium was 136 with a normal 137. Her potassium was normal 4.1, her BUN is 26 and creatinine was 1.10, which she was with the estimated glomerular filtration rate of non- was 48. As patient also has chemistry profile and a chemistry profile was indicating that hemoglobin of 9.6 and hematocrit 30.7, and MCV 93.3, and platelet count 381. At that time, she had a EKG of normal sinus rhythm. Today, on November 28, 2017 the date of service and we reviewed her laboratory and the impression at the time the patient had mild dehydration as well and currently laboratory indicating that her renal function is normalized with the underlying estimated glomerular filtration rate more than 60. Her blood sugar is normal and the sodium 137 and potassium 4.5 and a chloride 102, carbon dioxide 27 and the anion gap was 8, and the BUN is 13, so she appears to be definitely mildly dehydrated. Her hemoglobin is indicating that she had mild anemia with a hemoglobin 10.9 and hematocrit 35.5, however, that could be associated with hydration. Her platelet count is reactive 494. She had magnesium 2.1, and she has also calcium is 9.8. The patient has had urinalysis, which was large leukocyte and on November 23, and also the WBC 30, with the underlying urinary tract infection. The patient is seen by Cardiology initially and also had a echocardiogram and she had a CT scan of the brain and that showed cerebral atrophy, no acute intracranial abnormality; mild chronic small-vessel disease is expected. She has as well initially, a chest x-ray and the chest x-ray was indicating pulmonary edema and with considered possibility of congestive heart failure. Initially EKG was normal sinus rhythm, no acute changes. On today, she is conscious, alert, oriented, ambulatory. She is clear mentally and her vital sign indicating his temperature today on November 28, 2017, her temperature 96.5 orally, respiratory rate 90, blood pressure 143/64 with a mean 90. Her oxygen saturation 98. She had a blood culture and blood culture was negative and no gross in 96 hours. Also, patient had a chest x-ray done yesterday on the and the chest x-ray was indicating that resistant small bilateral effusion, basilar atelectasis or infiltrate superimposed of the COPD, more nodular appearing density in the medial margin of the right upper lobe and recommended a CT scan of the chest. We will be planning order for a CT scan for further evaluation. She had an echocardiogram and that was read by Dr. Fitzgerald, cardiology, and she had ejection fraction of 60-65, and she had pulmonary hypertension and also with the right ventricular systolic pressure of 39.99 as well and the aortic valve is trileaflet and she had trace to mild mitral regurgitation and mild tricuspid regurgitation and mild pulmonary hypertension. EXAMINATION: Today, patient is conscious, alert, oriented x3. No acute respiratory distress. Her oropharynx natural and caps and with good oral hygiene. Uvula midline. The neck was supple. No JVD. No thyromegaly. No lymphadenopathy. Trachea midline. The chest was clear to auscultation and percussion. She has probably mild COPD in the past and no coughing and no wheezing and the heart PMI in the fifth intercostal space. Normal S1, S2. No gallop. EXTREMITIES: No edema and positive bowel sounds. FINAL ASSESSMENT: The patient was presented as mention with the underlying ER impression admitted with urinary tract infection as well as she had at that time dehydration with the estimated glomerular filtration rate was 48 with the elevated creatinine. She had a BMP with the 2690, and she had a large leukocyte and she had elevated troponin. Added to this is pulmonary hypertension and normal systolic function with the conclusion that: 1. Diastolic congestive heart failure, probably acute. 2. Underlying history of dehydration and corrected with normal estimated glomerular filtration rate at this time. 3. In the lung, a possibility of underlying atelectasis versus interstitial lung disease versus pneumonitis with the recommendation of the radiology with the CT scan. We will proceed with a CT scan. 4. She had a high BNP on admission and that will be with the diastolic impairment, diastolic failure with the systolic function is normal. 5. She had mild anemia and that can be also evaluated as outpatient. 6. Currently, her estimated glomerular filtration rate is normal and she is fully hydrated. The assessment at that time, patient is stable. With this data, we will do clarification with the #1 as the plan: 1. Obtain the BNP. 2. Obtain troponin level. 3. To do UA culture and sensitivity after she has her antibiotic done today. 4. If the troponin is elevated, we will be asking the Cardiology if any for further investigation needed in regard of the patient. But if it is normal and she is comfortable for clearance for discharge, will be planned for discharge in 24 hours to 48 hour. 5. That will also depend on the result of the CT scan with the CT scan of the chest with contrast. MMODL / IJN: [id number] /
--- NOTE | 2017-11-28 14:18 | CT ---
EXAMINATION TYPE: CT chest w con DATE OF EXAM: 11/28/2017 COMPARISON: Previous chest x-ray dated 11/27/2017. HISTORY: Pneumonia. Abnormal spot on CXR. CT DLP: 259.3 mGycm Automated exposure control for dose reduction was used. CONTRAST: CT scan of the chest is performed with IV Contrast, patient injected with 100ml mL of Omnipaque 300. FINDINGS: There are patchy groundglass opacities throughout both lungs. These have the appearance of patchy pneumonias. No parenchymal mass is seen. There is no significant axillary, mediastinal, internal mammary or hilar adenopathy. There has been a previous left axillary dissection. There is no pleural or pericardial fluid. The heart is not enlarged. The gallbladder has been removed. Visualized portions of the upper abdomen are otherwise unremarkable . There is degenerative disc disease within the upper lumbar spine. IMPRESSION: 1. PATCHY, BILATERAL GROUNDGLASS OPACITY CONSISTENT WITH PATCHY PNEUMONIA. 2. POSTSURGICAL CHANGE. 3. DEGENERATIVE CHANGE WITHIN THE SPINE.
[2017-11-28] MEDS: PIPERACILLIN-TAZOBACTAM 3.375 GM in DEXTROSE/WATER 1 50ML.BAG IVPB SCH ×2 (16:06→23:57)
--- NOTE | 2017-11-28 17:02 | PN ---
PROGRESS NOTE DATE OF SERVICE: 11/25/2017 This an 82-year-old white female who was admitted with shortness of breath and chest discomfort, and also she had slight mental confusion. Her BNP was markedly elevated and also chest x-ray showed right lower lobe infiltrate consistent with congestive heart failure. Patient was admitted to the hospital for further evaluation and treatment. The patient is currently receiving IV Lasix and IV antibiotics. The patient was seen by [facility] in consultation. The patient has been placed back on her previous home medications. She is still complaining of some difficulty in breathing. Otherwise, her vital signs are stable. She is afebrile. Heart is in sinus rhythm. Lungs reveal diminished breath sounds over both bases. Abdomen is soft and nontender. There is no mass palpable. Examination of the lower extremities reveals no pitting edema. Neurologic examination does not reveal any localizing signs, but she has some early signs of forgetfulness. Her prognosis is guarded. Diagnosis, prognosis and therapeutic plans were discussed in detail with the patient and also with her son. MMEMILYL / GIOVANNIN: [id number] /
--- NOTE | 2017-11-28 17:56 | PN ---
PROGRESS NOTE DATE OF SERVICE: 11/27/2017 This is an 82-year-old white female who is a patient of Dr. Hicks and the patient was admitted by me because Dr. Hicks is on vacation and I am covering him. The patient came to the ER with shortness of breath, segment of mental confusion and new cough and general weakness. The patient was found to have congestive heart failure and right lower lobe pneumonia and patient was started on IV antibiotics, updraft treatments, and the patient was also placed back on home medications. The patient was seen by [facility] in consultation. She was treated with IV Lasix and now currently she is getting Lasix orally and she is also getting IV antibiotics, although the patient is still confused and very forgettable because of her dementia. Otherwise clinically she is improving with repeat chest x-ray still shows an infiltrate and pulmonary congestion. She is alert and oriented. Vital signs are stable. Heart is in sinus rhythm. Lungs are with diminished breath sounds over both bases with a few scattered rhonchi and rales. Abdomen soft and nontender. There is no mass palpable. Examination of the lower extremities revealed no pitting edema. Neurologic examination does not reveal any localizing signs. The prognosis is guarded. I will continue current medications. Cardiology also is following the patient. The diagnosis, prognosis and therapeutic plans were discussed in detail with the patient today. MMODL / IJN: [id number] /
--- NOTE | 2017-11-28 18:11 | PN ---
PROGRESS NOTE DATE OF SERVICE: 11/26/2017 This is an 82-year-old white female who was admitted with increasing shortness of breath and some mental confusion and also cough and general weakness. The patient was found to have a right lower lobe pneumonia and congestive heart failure and patient was admitted to the hospital for further evaluation and treatment. The patient also has some early dementia and is forgetful. The patient has been placed back on her previous home medications and she was seen by [facility] in consultation. She is currently receiving IV antibiotics and updraft treatments. Cardiac-parker, she is getting stable and at the time of admission, her BNP was markedly elevated. Clinically, patient is improving slowly and her vital signs are stable. She is afebrile. Heart is in sinus rhythm. Lungs reveal diminished breath sounds both bases and a few scattered rales and rhonchi heard bilaterally. Abdomen soft and nontender. There is no mass palpable. Examination of the lower extremities reveal no pitting edema. Neurologic examination does not reveal localizing signs. The patient is getting treatment for congestive heart failure and pneumonia and clinically she is improving. We will get a progress chest x-ray and overall prognosis is guarded. Will continue current medications. MMODL / IJN: [id number] /
[2017-11-28] MEDS: ASPIRIN 81 MG PO SCH (20:30)
[2017-11-28] MEDS: traZODone HCL 50 MG TAB PO SCH (20:30)
[2017-11-28] MEDS: FAMOTIDINE 20 MG TAB PO SCH (20:30)
[2017-11-29] MEDS: HYDROcodone/APAP 10-325MG 1 EACH TAB PO PRN ×4 (00:55→21:30)
[2017-11-29] MEDS: PANTOPRAZOLE 40 MG TABLET PO SCH (06:12)
[2017-11-29] MEDS: ALPRAZolam 0.5 MG TAB PO SCH ×3 (08:08→21:30)
[2017-11-29] MEDS: amLODIPine 5 MG TAB PO SCH (08:08)
[2017-11-29] MEDS: PIPERACILLIN-TAZOBACTAM 3.375 GM in DEXTROSE/WATER 1 50ML.BAG IVPB SCH ×3 (08:08→23:42)
[2017-11-29] MEDS: busPIRone HCl 5 MG TAB PO SCH ×3 (08:08→21:30)
[2017-11-29] MEDS: GABAPENTIN 300 MG CAP PO SCH ×2 (08:09→20:08)
[2017-11-29] MEDS: METOPROLOL SUCCINATE (ER) 50 MG TAB.ER.24H PO SCH (08:09)
--- NOTE | 2017-11-29 12:21 | PN ---
PROGRESS NOTE DATE OF SERVICE: 11/29/17 82-year-old white female. She is a NO CODE STATUS. NEW DATA: She is height 5 feet 1 inch, weight 56.2 kg. BSA 1.54 m2, BMI 23.4 kg/m2. Allergy is unknown. The patient admitted to the hospital under care of Dr. Beckford. The patient of Dr. Hicks, currently on the weekend Dr. Beckford asked me to see the patient until his return. As Dr. Beckford his impression that the patient of Dr. Hicks and she had mental confusion, new cough, and general weakness. Subsequently seen by the [facility] and they started her on Lasix with the possibility of congestive heart failure. Her heart was sinus rhythm at the time. The patient had on the fifth, she had a chest x-ray and the chest x-ray was persistent small bilateral effusion, basilar atelectasis or infiltrate super imposed on the background of the COPD with a history of COPD. The patient also has more nodular appearing densities in the medial margin of the right upper lobe and they recommended a CT scan by Dr. Shakeel Dumont MD the radiologist. Subsequently a CT scan was obtained for evaluation and input for the CT scan they stated that this patient has a patchy bilateral ground-glass opacity consistent with patchy pneumonia. She had postsurgical changes and degenerative disc disease of the spine. She had also no pleural or pericardial effusion and the gallbladder was removed and mainly the patchy ground-glass opacity throughout the lung bases. No parenchymal mass is seen. Subsequently, we started her on Zosyn. She was prior to that on ceftriaxone and azithromycin as a protocol for pneumonia on the admission. However, with the not really seeing significant improvement, we changed that and discontinued the azithromycin and discontinued the Rocephin and started on Zosyn IV piggyback and we will continue that for 2-3 days total and switched to oral medication. The patient clinically she feels much better. She is ambulatory. She was expecting that she wants to go home. Her new result indicating the urine was negative and the last proBNP was 810 and it was higher on admission. Her last troponin 0.014 and that was done yesterday. Her urine culture not yet completed and blood culture was negative. On examination, the patient last CBC was done on November 27 and she had normal white count 5.9, but the platelet was increased with reactive 494. Her hemoglobin was 10.9 with the underlying anemia. Today temperature on the 29 November 98.8 orally, and pulse 92, pulse rate, regular and respiratory rate was 16, nonlabored, and her blood pressure 124/70, and mean arterial pressure is 88, and she is on oxygen and room air 93- 92 with a history of COPD in the past. PHYSICAL EXAMINATION: She had natural teeth. HEENT was negative. Neck was supple. No JVD. Chest was clear to auscultation and percussion except minimal dullness on the bases with decreased air entry. Heart was regular sinus rhythm and the abdomen was soft. Positive bowel sounds and she had history of degenerative disc disease. EXTREMITIES: No edema and positive pulses. Neurology: The patient ambulatory, able to go to the bathroom, able to eat. No syncopal episode. She has dementia, however, stable at this time. ASSESSMENT: 1. Diastolic congestive heart failure. 2. Underlying pneumonia by the CT scan. The patient started on Zosyn. Troponin is normal currently, and repeated UA was negative and the patient with the underlying pneumonitis and given IV antibiotic and probably will be clinically stable. Will be discharged on oral antibiotic in 24 hours to 48 hours. 3. She had urinary tract infection and and that is clear on admission. 4. ProBNP and congestive heart failure has been improved. Dr. Beckford will be following the patient tomorrow. MMEMILYL / IJN: [id number] /
[2017-11-29] MEDS: traZODone HCL 50 MG TAB PO SCH (20:08)
[2017-11-29] MEDS: ASPIRIN 81 MG PO SCH (20:08)
[2017-11-29] MEDS: FAMOTIDINE 20 MG TAB PO SCH (21:31)
[2017-11-30] MEDS: HYDROcodone/APAP 10-325MG 1 EACH TAB PO PRN ×3 (04:20→17:47)
[2017-11-30 06:31] LABS: Basophils # (A) 0.1 k/uL (0-0.2); Basophils % (A) 1 %; Eosinophils # (A) 0.4 k/uL (0-0.7); Eosinophils % (A) 7 %; HCT 36.7 % (34.0-46.0); HGB 10.9 gm/dL (11.4-16.0); Hypochromasia Slight; Lymphocytes # (A) 1.4 k/uL (1.0-4.8); Lymphocytes % (A) 24 %; MCH 27.3 pg (25.0-35.0); MCHC 29.6 g/dL (31.0-37.0); MCV 92.4 fL (80.0-100.0); Mean Platelet Volume 6.9; Monocytes # (A) 0.4 k/uL (0-1.0); Monocytes % (A) 7 %; Neutrophils # (A) 3.5 k/uL (1.3-7.7); Neutrophils % (A) 59 %; Platelet Count 520 k/uL (150-450); RBC 3.98 m/uL (3.80-5.40); RDW 15.2 % (11.5-15.5); Reticulocyte % 2.3 % (0.5-2.0); WBC 5.9 k/uL (3.8-10.6)
[2017-11-30] MEDS: PANTOPRAZOLE 40 MG TABLET PO SCH (06:39)
[2017-11-30] MEDS: GABAPENTIN 300 MG CAP PO SCH ×2 (10:02→20:38)
[2017-11-30] MEDS: busPIRone HCl 5 MG TAB PO SCH ×3 (10:04→20:38)
[2017-11-30] MEDS: METOPROLOL SUCCINATE (ER) 50 MG TAB.ER.24H PO SCH (10:05)
[2017-11-30] MEDS: ALPRAZolam 0.5 MG TAB PO SCH ×3 (10:05→20:38)
[2017-11-30] MEDS: amLODIPine 5 MG TAB PO SCH (10:05)
--- NOTE | 2017-11-30 10:54 | CDI ---
Last Revision, October 2017 Documentation Clarification Form Date: 11/30/2017 10:45:00 AM From: Kacie WernerMARCELLE, CCDS Admit Date: 11/24/2017 12:08:00 AM Patient Name: Tiffanie Lopez Visit Number: [id number] Discharge Date: 12/01/2017 ATTENTION: The Clinical Documentation Specialists (CDI) and [facility] Coding Staff appreciate your assistance in clarifying documentation. Please respond to the clarification below the line at the bottom and electronically sign. The CDI & [facility] Coding staff will review the response and follow-up if needed. Please note: Queries are made part of the Legal Health Record. If you have any questions, please contact the author of this message via ITS. Dr. Rinku Beckford: Renal failure was documented in the history & physical. History/Risk Factors: Dementia, Depression, Hypertensive cardiovascular disease and GERD. Patients admission BUN/CR/GFR: 26 / 1.10 / 48 Clinical Indicators: Admitted with acute diastolic heart failure & generalized weakness. Curent BUN/Cr/GFR: 13 / 0.70 / >60 Treatment: IV zosyn, IV Lasix, IV Narcan, IV Rocephin, IV fluid bolus, IV fluid rate 75. In order to capture the severity of condition, please clarify if the condition signifies: Acute renal failure Acute kidney injury Acute on chronic renal failure If CKD, please stage if known: CKD Stage 1 GFR >90 CKD Stage 2 GFR 60-89 CKD Stage 3 GFR 30-59 CKD Stage 4 GFR 15-29 CKD Stage 5 GFR <15 Unable to determine Unknown Please continue to document in your progress notes and discharge summary in order to capture severity of illness and risk of mortality. Include clinical findings that support your diagnosis. MTDD
[2017-11-30] MEDS: PIPERACILLIN-TAZOBACTAM 3.375 GM in DEXTROSE/WATER 1 50ML.BAG IVPB SCH ×2 (11:54→17:44)
--- NOTE | 2017-11-30 15:24 | P.CNPUL ---
History of Present Illness Consult date: 11/30/17 Reason for consult: dyspnea, cough, pneumonia, abnormal CXR/CT Chief complaint: Abnormal computed tomography scan and chest x-ray History of present illness: Mrs. Marguerite Lopez is a 10-year-old female who sees Dr. Hicks for primary care and activity patient has been admitted into the hospital by Dr. Beckford with confusion shortness of breath and new cough not much data can be obtained from the patient as she is extremely poor historian however review of the data and chart revealed that patient underwent chest x-rays and the CAT scan x-ray shows a small pleural effusion with some prominent interstitium CAT scan shows groundglass attenuation suggestive of pneumonia. Patient is currently being treated with broad-spectrum antibiotics. Patient had echocardiogram which revealed ejection fraction about 60% and no significant pulmonary hypertension is seen. BNP is normal. She has mildly elevated troponin however subsequently came down she is still complaining of cough and shortness of breath however CVAT has improved compared the time of admission I was asked to evaluate this patient further from respiratory standpoint. Review of Systems All systems: negative Past Medical History Past Medical History: Cancer, CVA/TIA, Dementia, Eye Disorder, GERD/Reflux, GI Bleed, Hypertension, Memory Impairment, Osteoarthritis (OA) Additional Past Medical History / Comment(s): tia's, macular degeneration.ibs, lt breast cancer had sx and chemo-2000 History of Any Multi-Drug Resistant Organisms: None Reported Past Surgical History: Bladder Surgery, Cholecystectomy, Hysterectomy, Tubal Ligation Additional Past Surgical History / Comment(s): lap choley, jaleesa cataracts rmoved- lens implants. cyst removedf rom epiglottis, colonoscopy, lt breast bx-lt masectomy 1999,rectocele,cystocele Past Anesthesia/Blood Transfusion Reactions: No Reported Reaction Smoking Status: Former smoker - Past Family History Father History Unknown: Yes Additional Family Medical History / Comment(s): he left when pt was age 5. Mother Family Medical History: COPD, CVA/TIA Additional Family Medical History / Comment(s): emphysema, was heavy smoker, diverticulitis Medications and Allergies Home Medications Medication Instructions Recorded Confirmed Type Gabapentin [Neurontin] 300 mg PO BID 08/05/17 11/23/17 History Ibuprofen [Motrin] 600 mg PO BID 08/05/17 11/23/17 History Metoprolol Succinate (ER) [Toprol 25 mg PO DAILY 08/05/17 11/23/17 History XL] Omeprazole 20 mg PO DAILY 08/05/17 11/23/17 History amLODIPine [Norvasc] 5 mg PO DAILY 08/05/17 11/23/17 History busPIRone HCL 15 mg PO TID 08/05/17 11/23/17 History traZODone HCL [Desyrel] 50 mg PO HS 08/05/17 11/23/17 History ALPRAZolam [Xanax] 0.5 mg PO TID #90 08/13/17 11/23/17 Rx Aspirin [Adult Low Dose Aspirin EC] 81 mg PO HS 11/23/17 11/23/17 History HYDROcodone/APAP 10-325MG [[place] 1 tab PO Q6H PRN 11/23/17 11/23/17 History 10-325] Ranitidine HCl 150 mg PO HS 11/23/17 11/23/17 History Allergies Allergy/AdvReac Type Severity Reaction Status Date / Time No Known Allergies Allergy Verified 11/23/17 19:12 Physical Exam Vitals: Vital Signs Temp Pulse Resp BP Pulse Ox 11/30/17 11:13 97.6 F 73 18 136/66 96 11/30/17 11:00 73 18 11/30/17 04:00 97.8 F 81 18 114/62 93 L 11/29/17 23:55 97.4 F L 58 L 16 99/54 98 11/29/17 20:00 97.2 F L 74 18 143/85 95 11/29/17 15:53 97 F L 76 16 114/70 92 L Intake and Output 11/30/17 11/30/17 11/30/17 06:59 14:59 22:59 Intake Total 30 1260 Output Total 0 0 Balance 30 1260 Intake: Intake, IV Titration 50 Amount Piperacillin-Tazobactam 3 50 .375 gm In Dextrose/Water 1 50ml.bag @ 12.5 mls/hr IVPB Q8HR [facility] Rx#: [id number] Oral 30 1210 Output: Stool 0 0 Other: Voiding Method Toilet Toilet # Voids 1 2 Weight 55.2 kg - Constitutional General appearance: average body habitus, no acute distress - EENT Eyes: EOMI, PERRLA, normal appearance ENT: normal oropharynx Ears: bilateral: normal - Neck Neck: normal ROM Carotids: bilateral: upstroke normal, bruit absent Thyroid: bilateral: normal size - Respiratory Respiratory: bilateral: CTA, negative: diminished, dullness, rales, rhonchi, wheezing, prolonged expiration, prolonged inspiration - Cardiovascular Rhythm: regular Heart sounds: normal: S1, S2 - Gastrointestinal General gastrointestinal: normal bowel sounds, soft - Neurologic Neurologic: CNII-XII intact - Musculoskeletal Musculoskeletal: gait normal, generalized weakness, strength equal bilaterally - Psychiatric Patient has overall short-term memory with significant history of dementia however Psychiatric: A&O x's 3, appropriate affect, intact judgment & insight Results - Laboratory Findings CBC and BMP: 11/30/17 06:18 11/28/17 06:08 PT/INR, D-dimer PT 9.6 sec (9.0-12.0) 11/23/17 19:46 INR 1.0 (<1.2) 11/23/17 19:46 Abnormal lab findings: Abnormal Labs 11/23/17 11/23/17 11/23/17 19:46 19:46 19:46 RBC 3.29 L Hgb 9.6 L Hct 30.7 L MCHC Plt Count Neutrophils # 8.0 H Retic Count Sodium 136 L BUN 26 H Creatinine 1.10 H Glucose 105 H Troponin I 0.070 H* Total Protein 5.4 L Albumin 2.8 L Urine Appearance Ur Leukocyte Esterase Urine WBC Ur Squamous Epith Cells Urine Bacteria Urine Mucus 11/23/17 11/28/17 11/30/17 20:27 06:08 06:18 RBC Hgb 10.9 L 10.9 L Hct MCHC 30.7 L 29.6 L Plt Count 494 H 520 H Neutrophils # Retic Count 2.3 H Sodium BUN Creatinine Glucose Troponin I Total Protein Albumin Urine Appearance Cloudy H Ur Leukocyte Esterase Large H Urine WBC 30 H Ur Squamous Epith Cells 7 H Urine Bacteria Rare H Urine Mucus Rare H - Diagnostic Findings Chest x-ray: report reviewed, image reviewed CT scan - chest: report reviewed, image reviewed (No pleural effusion is seen on the CAT scan, there is patchy bilateral infiltrates are present suggestive of pneumonia likely bilateral, influenza pneumonia and remained an issue) Assessment and Plan Assessment: Bilateral pneumonia Confusion with likely related to pneumonia Urinary tract infection early sepsis Plan: Would continue antibiotic supportive care and continue breathing treatments maintain patient on DVT and peptic ulcer disease prophylaxis will check influenza A and B as well will follow clinical course closely with further recommendations pending Time with Patient: Greater than 30
--- NOTE | 2017-11-30 15:40 | PN ---
PROGRESS NOTE DATE OF SERVICE: 11/30/2017 This is an 82-year-old white male was admitted to the hospital with pneumonia and congestive heart failure. She had markedly elevated BNP and patchy infiltrates in the lung. Patient was started on IV antibiotics and the patient was also seen by [facility] in consultation. The patient was treated with diuretics and her overall symptoms improved. She was also given updrafts treatments. However, a CT scan reveals that the patient still has a patchy infiltrates in the lung consistent with a pneumonia and clinically patient did show some improvement. Her vital signs are stable. Heart is in sinus rhythm. Lungs revealed diminished breath sounds over both bases with scattered rales and rhonchi. Abdomen is soft, nontender. No mass palpable. Examination of the lower extremities reveal no pitting edema. Neurologic examination does not reveal localizing signs. IMPRESSION: 1. Persist patchy infiltrates in the lung consistent with pneumonia. 2. Congestive heart failure. Because of the persistent pneumonia, we will get a consultation from control and recovery special tactics and Dr. Calvert has been consulted. We will also continue current medications. Prognosis is guarded. MMODL / IJN: [id number] /
[2017-11-30 16:17] VITALS: RESP 16
[2017-11-30] MEDS: traZODone HCL 50 MG TAB PO SCH (20:38)
[2017-11-30] MEDS: ASPIRIN 81 MG PO SCH (20:38)
[2017-11-30] MEDS: FAMOTIDINE 20 MG TAB PO SCH (20:38)
[2017-12-01] MEDS: PIPERACILLIN-TAZOBACTAM 3.375 GM in DEXTROSE/WATER 1 50ML.BAG IVPB SCH ×3 (00:23→17:27)
[2017-12-01] MEDS: HYDROcodone/APAP 10-325MG 1 EACH TAB PO PRN ×2 (06:55→13:20)
[2017-12-01] MEDS: PANTOPRAZOLE 40 MG TABLET PO SCH (06:55)
[2017-12-01] MEDS: ALPRAZolam 0.5 MG TAB PO SCH ×2 (08:24→16:00)
[2017-12-01] MEDS: amLODIPine 5 MG TAB PO SCH (08:25)
[2017-12-01] MEDS: GABAPENTIN 300 MG CAP PO SCH (08:25)
[2017-12-01] MEDS: METOPROLOL SUCCINATE (ER) 50 MG TAB.ER.24H PO SCH (08:25)
[2017-12-01] MEDS: busPIRone HCl 5 MG TAB PO SCH ×2 (08:25→16:01)
[2017-12-01 15:18] VITALS: BP 115/68; PULSE 77; TEMP 98.2
--- NOTE | 2017-12-01 16:31 | P.PN ---
Subjective Progress Note Date: 12/01/17 Principal diagnosis: Bilateral pneumonia, acute hypoxic respiratory failure, silent aspiration with aspiration related pneumonia 12/01/2017, patient seen eval reexamined during the rounds, from respiratory standpoint she is doing relatively better her cough cuff congestion and shortness of breath is improved, she remains on broad-spectrum antibiotics daughter has expressed wishes patient to be discharged back discussed with the nursing staff as well Mrs. Marguerite Lopez is a 82-year-old female who sees Dr. Hicks for primary care and activity patient has been admitted into the hospital by Dr. Beckford with confusion shortness of breath and new cough not much data can be obtained from the patient as she is extremely poor historian however review of the data and chart revealed that patient underwent chest x-rays and the CAT scan x-ray shows a small pleural effusion with some prominent interstitium CAT scan shows groundglass attenuation suggestive of pneumonia. Patient is currently being treated with broad-spectrum antibiotics. Patient had echocardiogram which revealed ejection fraction about 60% and no significant pulmonary hypertension is seen. BNP is normal. She has mildly elevated troponin however subsequently came down she is still complaining of cough and shortness of breath however CVAT has improved compared the time of admission I was asked to evaluate this patient further from respiratory standpoint. Objective - Vital Signs Vital signs: Vital Signs Temp 98.2 F 12/01/17 15:00 Pulse 77 12/01/17 15:00 Resp 16 12/01/17 15:00 BP 115/68 12/01/17 15:00 Pulse Ox 93 L 12/01/17 15:00 Intake & Output 11/30/17 12/01/17 12/01/17 18:59 06:59 18:59 Intake Total 1260 50 Output Total 0 0 Balance 1260 0 50 Intake: Intake, IV Titration 50 50 Amount Piperacillin-Tazobactam 3 50 50 .375 gm In Dextrose/Water 1 50ml.bag @ 12.5 mls/hr IVPB Q8HR [facility] Rx#: [id number] Oral 1210 Output: Stool 0 0 Other: Voiding Method Toilet Toilet # Voids 2 1 4 - Exam - Constitutional General appearance: average body habitus, no acute distress - EENT Eyes: EOMI, PERRLA, normal appearance ENT: normal oropharynx Ears: bilateral: normal - Neck Neck: normal ROM Carotids: bilateral: upstroke normal, bruit absent Thyroid: bilateral: normal size - Respiratory Respiratory: bilateral: CTA, negative: diminished, dullness, rales, rhonchi, wheezing, prolonged expiration, prolonged inspiration - Cardiovascular Rhythm: regular Heart sounds: normal: S1, S2 - Gastrointestinal General gastrointestinal: normal bowel sounds, soft - Neurologic Neurologic: CNII-XII intact - Musculoskeletal Musculoskeletal: gait normal, generalized weakness, strength equal bilaterally - Psychiatric Patient has overall short-term memory with significant history of dementia however Psychiatric: A&O x's 3, appropriate affect, intact judgment & insight - Labs CBC & Chem 7: 11/30/17 06:18 11/28/17 06:08 Assessment and Plan Assessment: Bilateral pneumonia Confusion with likely related to pneumonia Urinary tract infection early sepsis Plan: Would continue antibiotic supportive care and continue breathing treatments maintain patient on DVT and peptic ulcer disease prophylaxis will check influenza A and B as well will follow clinical course closely with further recommendations pending, as per family wishes however can be discharged home on oral Augmentin 875 twice a day for 1 week with follow-up in one week Time with Patient: Greater than 30
--- NOTE | 2017-12-01 17:08 | PN ---
PROGRESS NOTE DATE OF SERVICE: 12/01/2017 This is an 82-year-old white female who was admitted with increasing shortness of breath, remained to have some increased mental confusion and the patient was found to have a patchy infiltrate in the lung and also a urinary tract infection. Patient was admitted to the hospital for further evaluation and treatment. The patient was started on IV antibiotics and given updraft treatments and she was also found to have congestive heart failure with an elevated BNP. The patient was seen by [facility] in consultation also and clinically patient improved, but the chest x-ray revealed persistent infiltrate and a CT scan was obtained and this also showed a patchy infiltrate in the lung consistent with pneumonia. Dr. Calvert was consulted and the patient is being evaluated by the abrading machine tender and currently the patient will be continued on IV antibiotics and the patient also has chronic anemia. Her hemoglobin is 10.9. Will check serum iron, ferritin and B12 and folate levels. Overall prognosis is guarded. The patient has early dementia and has impaired memory. MMODL / IJN: [id number] /
[2017-12-01 19:56] LABS: Folate, Serum 18.7 ng/mL
--- NOTE | 2017-12-02 08:58 | CDI ---
Last Revision, October 2017 Documentation Clarification Form Date: 12/02/2017 8:50:00 AM From: Kacie WernerMARCELLE, CCDS Admit Date: 11/24/2017 12:08:00 AM Patient Name: Tiffanie Lopez Visit Number: [id number] Discharge Date: 12/01/2016 ATTENTION: The Clinical Documentation Specialists (CDI) and [facility] Coding Staff appreciate your assistance in clarifying documentation. Please respond to the clarification below the line at the bottom and electronically sign. The CDI & [facility] Coding staff will review the response and follow-up if needed. Please note: Queries are made part of the Legal Health Record. If you have any questions, please contact the author of this message via ITS. Dr. Rinku Beckford: Patient is admitted with SOB & increased mental confusion, diagnosed with pneumonia and also a UTI. Per pulmonary, also documented early Sepsis. History/Risk factors: Dementia, Hypertensive cardiovascular disease. Clinical Indicators: Labs: WBC (10.2), Hgb 9.6, Neut 8.0, Na 136*, BUN 26^, Cr 1.10, Trop 0.070. CT Brain: Cerebral atrophy, no acute abnormality. Treatment: IV fluid rate 75, IV fluid bolus, IV Rocephin, IV Lasix, IV Azithromycin, O2 2Lnc Consults: Pulmonary & Cardiology In your professional opinion, can you please clarify the specific type of encephalopathy, if known? Metabolic Encephalopathy Septic Encephalopathy Toxic Encephalopathy Traumatic Encephalopathy Other, please specify Unable to determine Please continue to document in your progress notes and discharge summary in order to capture severity of illness and risk of mortality. Include clinical findings that support your diagnosis. MTDD
--- NOTE | 2017-12-02 09:08 | CDI ---
Last Revision, October 2017 Documentation Clarification Form Date: 12/02/2017 8:58:00 AM From: Kacie Werner Admit Date: 11/24/2017 12:08:00 AM Patient Name: Tiffanie Lopez Visit Number: [id number] Discharge Date: 12/01/2017 ATTENTION: The Clinical Documentation Specialists (CDI) and [facility] Coding Staff appreciate your assistance in clarifying documentation. Please respond to the clarification below the line at the bottom and electronically sign. The CDI & [facility] Coding staff will review the response and follow-up if needed. Please note: Queries are made part of the Legal Health Record. If you have any questions, please contact the author of this message via ITS. Dr. Rinku Beckford: Patient is admitted with SOB & increased mental confusion, diagnosed with pneumonia and also a UTI. Per pulmonary, also documented early Sepsis. History/Risk factors: Dementia, Hypertensive cardiovascular disease. Clinical Indicators: VS: T 97.2*, P 69, R 14, BP 100/55 - 89/50, PO 94 ra Labs: WBC (10.2), Hgb 9.6, Neut 8.0, Na 136*, BUN 26^, Cr 1.10, Trop 0.070. CT Brain: Cerebral atrophy, no acute abnormality. CXR: Pulmonary edema, small pleural effusions, possible heart failure & RDS. Treatment: IV fluid rate 75, IV fluid bolus, IV Rocephin, IV Lasix, IV Azithromycin, O2 2Lnc Consults: Pulmonary & Cardiology In your professional opinion, please clarify if these findings signify one of the following conditions, whether the condition (Sepsis) is POA, and cause, if known: Sepsis ruled out Sepsis Severe Sepsis Septic Shock Other, please specify Unable to determine Present on Admission: Yes OR No Identify the (suspected) organism Link or clarify if there is associated (due to/with): Organ failure or Shock Please continue to document in your progress notes and discharge summary in order to capture severity of illness and risk of mortality. Include clinical findings that support your diagnosis. MTDD
--- NOTE | 2017-12-02 09:20 | CDI ---
Last Revision, October 2017 Documentation Clarification Form Date: 12/02/2017 9:10:00 AM From: Kacie WernerMARCELLE, CCDS Admit Date: 11/24/2017 12:08:00 AM Patient Name: Tiffanie Lopez Visit Number: [id number] Discharge Date: 12/01/2017 ATTENTION: The Clinical Documentation Specialists (CDI) and [facility] Coding Staff appreciate your assistance in clarifying documentation. Please respond to the clarification below the line at the bottom and electronically sign. The CDI & [facility] Coding staff will review the response and follow-up if needed. Please note: Queries are made part of the Legal Health Record. If you have any questions, please contact the author of this message via ITS. Dr. Rinku Beckford: Aspiration Pneumonia was documented in the labor relations supervisor progress note on 12/01: "Bilateral pneumonia, acute hypoxic respiratory failure, silent aspiration with aspiration related pneumonia. History/Risk factors: Dementia, Hypertensive cardiovascular disease. Clinical Indicators: VS: T 97.2*, P 69, R 14, BP 100/55 - 89/50, PO 94 ra Labs: WBC (10.2), Hgb 9.6, Neut 8.0, Na 136*, BUN 26^, Cr 1.10, Trop 0.070. CT Brain: Cerebral atrophy, no acute abnormality. CXR: Pulmonary edema, small pleural effusions, possible heart failure & RDS. Treatment: IV fluid rate 75, IV fluid bolus, IV Rocephin, IV Lasix, IV Azithromycin, O2 2Lnc Consults: Pulmonary & Cardiology In your professional opinion, can you please clarify the specific type of pneumonia, if known? Pneumonia, nos Viral Pneumonia Bacterial Pneumonia, specify organism if known Aspiration Pneumonia, specify cause if known Undetermined Other Please continue to document in your progress notes and discharge summary in order to capture severity of illness and risk of mortality. Include clinical findings that support your diagnosis. MTDD
--- NOTE | 2017-12-18 08:43 | DS ---
DISCHARGE SUMMARY DATE OF ADMISSION: 11/24/2017. DATE OF DISCHARGE: 12/01/2017. DISCHARGE DIAGNOSES: 1. Bilateral pneumonia and pleural effusion, possible aspiration pneumonia. 2. Increased mental confusion possibly due to encephalopathy. 3. Urinary tract infection with sepsis. 4. Acute on chronic congestive heart failure with a markedly elevated BNP. 5. Renal failure due to acute kidney injury from dehydration. 6. Dementia. 7. Major depression. 8. Osteoarthritis multiple joints. This is an 82-year-old white female who was brought to the emergency room because of mental confusion, which was getting progressively worse and also she became lethargic and she developed extremely severe weakness and increasing shortness of breath. She was evaluated in the ER and she was found to have a congestive heart failure and bilateral pneumonia and pleural effusion and also she was found to be dehydrated. Her BNP was markedly elevated and she was also found to have low hemoglobin. It was 9.6. WBC count was 10.2, sodium 136, potassium 4.1, BUN 26, and creatinine 1.10. The patient was admitted to the hospital for further evaluation and treatment. For details of the physical examination at the time of admission, please refer to the history and physical. HOSPITAL COURSE: The patient was started on IV antibiotics and she was also seen by [facility] in consultation and they are following the patient. She was also this was seen by a bouffant curtain machine tender in consultation and also zoo caretaker, Dr. Calvert saw the patient in consultation. They were following the patient. She was given updraft treatments and IV fluids to correct dehydration. She had an echocardiogram, ejection fraction was found to be normal. Her symptoms improved with these treatments and she became more alert but she was still confused because of dementia. The patient's daughter felt that as her condition is stable, she could be discharged on oral antibiotics and further evaluation by the zoo caretaker could be done as outpatient. Dr. Calvert agreed with that position and Dr. Calvert felt that patient is stable enough to be discharged and patient will be following with Dr. Calvert and he will do further evaluation and treatment as outpatient. Accordingly, patient was discharged home on 12/01/2017 and she and her daughter were given detailed discharge instructions and she will continue on Augmentin 500-125 b.i.d., Xanax 0.5 mg t.i.d. p.r.n., aspirin 81 mg p.o. daily, Gabapentin 300 mg b.i.d., [place] 10/325 one q.6-8 hours p.r.n., Motrin 600 mg p.o. b.i.d., Toprol-XL 25 mg p.o. daily, omeprazole 20 mg p.o. daily, ranitidine 150 mg p.o. daily at bedtime, Norvasc 5 mg p.o. daily, Buspirone 15 mg t.i.d. and trazodone 50 mg daily at bedtime. She will also be followed by her primary care physician, Dr. Hicks in 1-2 weeks. MMODL / IJN: [id number] /
== END 2017-12-01 18:15 | disposition home or self-care (01) | DRG 177 ==
LOC: EC 18:49 → 6SEL 11-24 00:08 → 5MS5E 11-30 10:17
PROVIDERS: ADMIT Internal Medicine; ATTEND Internal Medicine
DX: J69.0 Pneumonitis due to inhalation of food and vomit (principal); A41.9 Sepsis, unspecified organism; J96.01 Acute respiratory failure with hypoxia; N17.9 Acute kidney failure, unspecified; N39.0 Urinary tract infection, site not specified; I50.30 Unspecified diastolic (congestive) heart failure; J44.0 Chronic obstructive pulmonary disease with (acute) lower respiratory infection; I11.0 Hypertensive heart disease with heart failure; E86.0 Dehydration; F03.90 Unspecified dementia, unspecified severity, without behavioral disturbance, psychotic disturbance, mood disturbance, and anxiety; D64.9 Anemia, unspecified; F32.9 Major depressive disorder, single episode, unspecified; K21.9 Gastro-esophageal reflux disease without esophagitis; R00.0 Tachycardia, unspecified; Z86.73 Personal history of transient ischemic attack (TIA), and cerebral infarction without residual deficits; Z90.710 Acquired absence of both cervix and uterus; Z98.51 Tubal ligation status; Z90.49 Acquired absence of other specified parts of digestive tract; Z98.41 Cataract extraction status, right eye; Z79.899 Other long term (current) drug therapy; Z98.42 Cataract extraction status, left eye; Z96.1 Presence of intraocular lens; Z85.3 Personal history of malignant neoplasm of breast; Z90.12 Acquired absence of left breast and nipple; Z87.891 Personal history of nicotine dependence; Z82.5 Family history of asthma and other chronic lower respiratory diseases; Z82.3 Family history of stroke; Z79.82 Long term (current) use of aspirin; Z79.1 Long term (current) use of non-steroidal anti-inflammatories (NSAID); Z79.891 Long term (current) use of opiate analgesic; Z66 Do not resuscitate; Z92.21 Personal history of antineoplastic chemotherapy; Z87.19 Personal history of other diseases of the digestive system
CPT/HCPCS: 36415; 70450; 71046; 71260; 74018; 80048; 80053; 81001; 81003; 82550; 82553; 82607; 82728; 82746; 83605; 83735; 83880; 84484; 85025; 85045; 85610; 85730; 87040; 87086; 87502; 93005; 93306; 96361; 96365; 96375; 99285

== ENCOUNTER 2020-11-19 20:04 | Emergency (ER) | payer MEDICARE, BC ==
[2020-11-19 20:24] VITALS: RESP 16
--- NOTE | 2020-11-19 20:45 | ED ---
URI HPI - General Chief Complaint: Upper Respiratory Infection Stated Complaint: Cough Time Seen by Provider: 11/19/20 20:12 Source: EMS Mode of arrival: EMS Limitations: altered mental status - History of Present Illness Initial Comments: 85-year-old female patient with past medical history significant for dementia presents to the emergency department today for evaluation of cough. Patient is sent from her adult long-term care facility for cough. Patient states the cough is dry. States she feels fine. Denies any shortness of breath or fever. De nies any pain currently. States that she feels like she always has this cough. Patient denies any recent rash, chest pain, abdominal pain, nausea, vomiting, diarrhea, constipation, back pain, numbness, tingling, dizziness, weakness, hematuria, dysuria, urinary urgency, urinary frequency, headache, visual changes, or any other complaints. - Related Data Home Medications Medication Instructions Recorded Confirmed Ibuprofen [Motrin] 600 mg PO BID@0800,1700 08/05/17 11/19/20 Omeprazole 20 mg PO DAILY@0800 08/05/17 11/19/20 busPIRone HCL 15 mg PO TID@0700,1400,2100 08/05/17 11/19/20 traZODone HCL [Desyrel] 50 mg PO HS@199908/05/17 11/19/20 Aspirin [Adult Low Dose Aspirin EC] 81 mg PO DAILY@0800 11/23/17 11/19/20 HYDROcodone/APAP 10-325MG [[place] 1 tab PO Q8H PRN 11/23/17 11/19/20 10-325] ALPRAZolam [Xanax] 0.25 mg PO HS@199911/19/20 11/19/20 Acetaminophen [Tylenol] 325 - 650 mg PO Q6H PRN 11/19/20 11/19/20 Artificial Tears-Hypromellose 1 drops BOTH EYES TID PRN 11/19/20 11/19/20 [Artificial Tear Drops] Benzonatate [Tessalon Perles] 200 mg PO TID PRN 11/19/20 11/19/20 Cyanocobalamin (Vitamin B-12) 1,000 mcg PO DAILY@0800 11/19/20 11/19/20 [Vitamin B-12] Docusate [Colace] 200 mg PO DAILY@0800 11/19/20 11/19/20 Furosemide [Lasix] 20 mg PO DAILY PRN 11/19/20 11/19/20 Gabapentin [Neurontin] 100 mg PO HS@199911/19/20 11/19/20 Memantine [Namenda] 10 mg PO BID@0800,199911/19/20 11/19/20 Metoprolol Tartrate [Lopressor] 25 mg PO BID@0800,1700 11/19/20 11/19/20 Multivitamins, Thera [Multivitamin 1 tab PO DAILY@0800 11/19/20 11/19/20 (formulary)] Tolterodine ER [Detrol LA] 4 mg PO HS@199911/19/20 11/19/20 amLODIPine [Norvasc] 2.5 mg PO HS@199911/19/20 11/19/20 fentaNYL 12MCG/HR PATCH [Duragesic 1 patch TRANSDERM Q72H 11/19/20 11/19/20 12MCG/HR] guaiFENesin-DM 100-10MG/5ML 10 ml PO Q6H PRN 11/19/20 11/19/20 [Robitussin DM] polyethylene glycoL 3350 [Miralax] 17 gm PO DAILY@0800 11/19/20 11/19/20 Previous Rx's Medication Instructions Recorded Dexamethasone 6 mg PO DAILY #9 tablet 11/19/20 Allergies Allergy/AdvReac Type Severity Reaction Status Date / Time No Known Allergies Allergy Verified 11/19/20 21:10 Review of Systems ROS Statement: Those systems with pertinent positive or pertinent negative responses have been documented in the HPI. ROS Other: All systems not noted in ROS Statement are negative. Past Medical History Past Medical History: Cancer, CVA/TIA, Dementia, Eye Disorder, GERD/Reflux, GI Bleed, Hypertension, Memory Impairment, Osteoarthritis (OA) Additional Past Medical History / Comment(s): tia's, macular degeneration.ibs, lt breast cancer had sx and chemo-1999 History of Any Multi-Drug Resistant Organisms: None Reported Past Surgical History: Bladder Surgery, Cholecystectomy, Hysterectomy, Tubal Ligation Additional Past Surgical History / Comment(s): lap choley, jaleesa cataracts rmoved- lens implants. cyst removedf rom epiglottis, colonoscopy, lt breast bx-lt masectomy 2000,rectocele,cystocele Past Anesthesia/Blood Transfusion Reactions: No Reported Reaction Past Psychological History: Anxiety Smoking Status: Never smoker Past Alcohol Use History: None Reported Past Drug Use History: None Reported - Past Family History Father History Unknown: Yes Additional Family Medical History / Comment(s): he left when pt was age 5. Mother Family Medical History: COPD, CVA/TIA Additional Family Medical History / Comment(s): emphysema, was heavy smoker, diverticulitis General Exam Limitations: altered mental status General appearance: alert, in no apparent distress, other (Physical well- developed, well-nourished elderly female patient in no acute distress. Vital signs upon presentation are temperature 97.3F, pulse 73, respirations 16, blood pressure 142/76, pulse ox 95% on room air.) Respiratory exam: Present: normal lung sounds bilaterally. Absent: respiratory distress, wheezes, rales, rhonchi, stridor Cardiovascular Exam: Present: regular rate, normal rhythm, normal heart sounds. Absent: systolic murmur, diastolic murmur, rubs, gallop, clicks GI/Abdominal exam: Present: soft, normal bowel sounds. Absent: distended, tenderness, guarding, rebound, rigid Neurological exam: Present: alert, oriented X3, CN II-XII intact Psychiatric exam: Present: normal affect, normal mood Skin exam: Present: warm, dry, intact, normal color. Absent: rash Course Vital Signs 11/19/20 11/19/20 20:20 21:24 Temperature 97.3 F L 98.8 F Pulse Rate 73 74 Respiratory 16 16 Rate Blood Pressure 142/76 161/81 O2 Sat by Pulse 95 97 Oximetry Medical Decision Making - Medical Decision Making 85-year-old female patient is sent from her long-term care facility for evaluation of cough. Physical examination reveals clear equal lung sounds. Patient is resting comfortably in bed in no respiratory distress. She denies any current symptoms or concerns. States her cough is nonproductive and does not bother her. She is afebrile normal vital signs. Chest x-ray was obtained and showed no acute abnormalities. She did test positive for COVID-19. We will start her on dexamethasone. She'll be discharged back to her extended care facility. They're instructed to have her return immediately should her symptoms change or worsen. Patient verbalizes understanding and daughter verbalizes understanding and agrees with this plan. - Lab Data Lab Results 11/19/20 Range/Units 20:31 Coronavirus (PCR) Detected A (Not Detectd) - Radiology Data Radiology results: report reviewed, image reviewed One view x-ray of the chest is obtained. Report was reviewed in its entirety. Impression by Dr. De Souza shows pulmonary fibrotic changes. Heart appears increased compared to old exam. No gross heart failure. Disposition Clinical Impression: COVID-19 Disposition: HOME SELF-CARE Condition: Good Instructions (If sedation given, give patient instructions): Viral Syndrome (ED) Additional Instructions: Take steroids as directed. If patient becomes significant short of breath or has any other concerning symptoms return immediately to the emergency department for evaluation. Quarantine Prescriptions: Dexamethasone 6 mg PO DAILY #9 tablet Is patient prescribed a controlled substance at d/c from ED?: No Referrals: Trudy Herron MD [Primary Care Provider] - 1-2 days Time of Disposition: 21:25
--- NOTE | 2020-11-19 21:00 | XR ---
EXAMINATION TYPE: XR chest 1V DATE OF EXAM: 11/19/2020 COMPARISON: 11/27/2017 HISTORY: Cough TECHNIQUE: FINDINGS: There is some coarse interstitial density in the lungs. There is no heart failure. Heart is slightly enlarged. There are no hilar masses. Thoracic aorta is atheromatous. There is no definite p leural effusion. IMPRESSION: Pulmonary fibrotic changes. Heart appears increased compared to old exam. No gross heart failure.
[2020-11-19] MEDS ORDERED: DEXAMETHASONE SOD PHOSPHATE 10 MG/ML 1 ML VIAL IV STA (21:23)
[2020-11-19 21:25] VITALS: BP 161/81; PULSE 74; TEMP 98.8
== END 2020-11-19 22:38 | disposition home or self-care (01) ==
LOC: EC 20:04
DX: U07.1 COVID-19 (principal); F41.9 Anxiety disorder, unspecified; K21.9 Gastro-esophageal reflux disease without esophagitis; I10 Essential (primary) hypertension; M19.90 Unspecified osteoarthritis, unspecified site; Z79.899 Other long term (current) drug therapy; Z79.1 Long term (current) use of non-steroidal anti-inflammatories (NSAID); Z90.710 Acquired absence of both cervix and uterus; Z90.49 Acquired absence of other specified parts of digestive tract; Z98.42 Cataract extraction status, left eye; Z98.41 Cataract extraction status, right eye; Z96.1 Presence of intraocular lens; Z90.12 Acquired absence of left breast and nipple; Z85.3 Personal history of malignant neoplasm of breast; Z92.21 Personal history of antineoplastic chemotherapy; Z86.73 Personal history of transient ischemic attack (TIA), and cerebral infarction without residual deficits
CPT/HCPCS: 87635; 71045; 99283; 96374; J1100

== ENCOUNTER 2020-11-30 08:39 | Inpatient (IN) | payer MEDICARE, BC ==
[2020-11-30] MEDS ORDERED: MORPHINE SULFATE 4 MG/ML SYRINGE IVP STA (09:15)
[2020-11-30 09:41] LABS: Albumin 3.1 g/dL (3.5-5.0); Calcium 8.7 mg/dL (8.4-10.2); Magnesium 1.9 mg/dL (1.6-2.3); Potassium 3.7 mmol/L (3.5-5.1); Total Bilirubin 0.5 mg/dL (0.2-1.3); Total Protein 6.3 g/dL (6.3-8.2)
--- NOTE | 2020-11-30 09:41 | ED ---
General Adult HPI - General Chief complaint: Fall Stated complaint: FALL, head injury Time Seen by Provider: 11/30/20 08:44 Source: patient, EMS Mode of arrival: EMS Limitations: no limitations - History of Present Illness Initial comments: Patient is an 85-year-old female presenting to the emergency department via EMS with complaints of low back pain after she fell today. Patient states she woke up this morning went to stand up from her bed and slipped and fell off of her bed. Patient states she did hit her head but she does not have a headache. She denies any neck pain. She denies any blood thinners. She is complaining of lower back pain. She denies any pain in her extremities. Patient was diagnosed with Covid 11 days ago, she is having some shortness of breath, mild cough. She denies any fevers. She denies any chest pain. She denies any abdominal pain, no nausea or vomiting. She has no further complaints. Upon arrival to the ER, she is afebrile, pulse is 118, and he 87% on 6 L, BP was 124/76. - Related Data Home Medications Medication Instructions Recorded Confirmed Ibuprofen [Motrin] 600 mg PO BID@0800,1700 08/05/17 11/30/20 Omeprazole 20 mg PO DAILY@0808/05/17 11/30/20 busPIRone HCL 15 mg PO TID@0700,1400,2100 08/05/17 11/30/20 traZODone HCL [Desyrel] 50 mg PO HS@199908/05/17 11/30/20 Aspirin [Adult Low Dose Aspirin EC] 81 mg PO DAILY@0811/23/17 11/30/20 HYDROcodone/APAP 10-325MG [[place] 1 tab PO Q8H PRN 11/23/17 11/30/20 10-325] ALPRAZolam [Xanax] 0.25 mg PO HS@199911/19/20 11/30/20 Acetaminophen [Tylenol] 325 - 650 mg PO Q6H PRN 11/19/20 11/30/20 Artificial Tears-Hypromellose 1 drop BOTH EYES TID PRN 11/19/20 11/30/20 [Artificial Tear Drops] Cyanocobalamin (Vitamin B-12) 1,000 mcg PO DAILY@0811/19/20 11/30/20 [Vitamin B-12] Docusate [Colace] 200 mg PO DAILY@0800 11/19/20 11/30/20 Furosemide [Lasix] 20 mg PO DAILY PRN 11/19/20 11/30/20 Gabapentin [Neurontin] 100 mg PO HS@199911/19/20 11/30/20 Memantine [Namenda] 10 mg PO BID@0800,199911/19/20 11/30/20 Metoprolol Tartrate [Lopressor] 25 mg PO BID@0800,1700 11/19/20 11/30/20 Multivitamins, Thera [Multivitamin 1 tab PO DAILY@0800 11/19/20 11/30/20 (formulary)] Tolterodine ER [Detrol LA] 4 mg PO HS@199911/19/20 11/30/20 amLODIPine [Norvasc] 2.5 mg PO HS@199911/19/20 11/30/20 fentaNYL 12MCG/HR PATCH [Duragesic 1 patch TRANSDERM Q72H 11/19/20 11/30/20 12MCG/HR] guaiFENesin-DM 100-10MG/5ML 10 ml PO Q6H PRN 11/19/20 11/30/20 [Robitussin DM] polyethylene glycoL 3350 [Miralax] 17 gm PO DAILY@0800 11/19/20 11/30/20 Benzonatate [Tessalon Perles] 200 mg PO TID PRN 11/30/20 11/30/20 Allergies Allergy/AdvReac Type Severity Reaction Status Date / Time No Known Allergies Allergy Verified 11/19/20 21:10 Review of Systems ROS Statement: Those systems with pertinent positive or pertinent negative responses have been documented in the HPI. ROS Other: All systems not noted in ROS Statement are negative. Past Medical History Past Medical History: Cancer, CVA/TIA, Dementia, Eye Disorder, GERD/Reflux, GI Bleed, Hypertension, Memory Impairment, Osteoarthritis (OA) Additional Past Medical History / Comment(s): tia's, macular degeneration.ibs, lt breast cancer had sx and chemo-2000 History of Any Multi-Drug Resistant Organisms: None Reported Past Surgical History: Bladder Surgery, Cholecystectomy, Hysterectomy, Tubal Ligation Additional Past Surgical History / Comment(s): lap choley, jaleesa cataracts rmoved- lens implants. cyst removedf rom epiglottis, colonoscopy, lt breast bx-lt masectomy 1999,rectocele,cystocele Past Anesthesia/Blood Transfusion Reactions: No Reported Reaction Past Psychological History: Anxiety Smoking Status: Never smoker Past Alcohol Use History: None Reported Past Drug Use History: None Reported - Past Family History Father History Unknown: Yes Additional Family Medical History / Comment(s): he left when pt was age 5. Mother Family Medical History: COPD, CVA/TIA Additional Family Medical History / Comment(s): emphysema, was heavy smoker, diverticulitis General Exam - General Exam Comments Initial Comments: GENERAL: Patient is well-developed and well-nourished. Patient is nontoxic and in mild distress, working to breathe. HEAD: Atraumatic, normocephalic. No hematomas visible. EYES: Pupils equal round and reactive to light, extraocular movements intact, sclera anicteric, conjunctiva are normal. Eyelids were unremarkable. ENT: TMs normal, nares patent, oropharynx clear without exudates. Moist mucous membranes. NECK: He arrived in c-collar, no midline tenderness. Normal range of motion, supple without lymphadenopathy or JVD. LUNGS: Tachy, decreased sounds, mild wheeezes. No rales or rhonchi. HEART: Tachy rate and rhythm without murmurs, rubs or gallops. ABDOMEN: Soft, nontender, normoactive bowel sounds. No guarding, no rebound. No masses appreciated. : Deferred MUSCULOSKELETAL: Normal extremities with adequate strength and normal range of motion, no pitting or edema. No clubbing or cyanosis. NEUROLOGICAL: Patient is alert and oriented x 3. Motor and sensory are also intact. Cranial nerves II through XII grossly intact. Symmetrical smile. Normal speech, normal gait. PSYCH: Normal mood, normal affect. SKIN: Warm, Dry, normal turgor, no rashes or lesions noted. Limitations: no limitations Course Vital Signs 11/30/20 11/30/20 11/30/20 08:41 09:33 09:47 Temperature 97 F L Pulse Rate 118 H 114 H Respiratory 22 22 18 Rate Blood Pressure 124/76 112/64 O2 Sat by Pulse 87 L 95 Oximetry 11/30/20 11/30/20 11/30/20 10:00 11:00 12:00 Temperature Pulse Rate 114 H 103 H 103 H Respiratory 18 18 18 Rate Blood Pressure 112/64 119/55 107/66 O2 Sat by Pulse 95 95 95 Oximetry 11/30/20 11/30/20 11/30/20 13:00 14:00 14:18 Temperature 97 F L 97 F L Pulse Rate 103 H 103 H Respiratory 18 18 18 Rate Blood Pressure 107/66 107/66 O2 Sat by Pulse 95 95 95 Oximetry EKG Findings - EKG Comments: EKG Findings:: Sinus tachycardia, left atrial enlargement, left ventricular hypertrophy, no signs of acute process, ventricular rate 118, CO interval 132, QT 338. Medical Decision Making - Medical Decision Making Patient is an 85-year-old female here after a slip and fall at home. Patient was also recently diagnosed with Covid about 11 days ago and is having difficulty breathing, working hard to breathe here. Patient's initial vitals pulse of 118, afebrile, she satting 87% on 6 L. We did switch her to a nonrebreather and she's been at 95%. Labs reveal white count of 16.8, dimer was elevated at 7.87, lactic acid is 2.2, CRP is 300, LDH is over 1000. Patient had CT of the brain and C-spine, c-collar was cleared. Given elevated dimer difficulty breathing, CTA of the chest was obtained and shows significant bilateral PEs with right ventricular strain. Case was consulted with Dr. Sorto, and we discussed options of transferring patient to have a procedure to remove the clots versus staying here and starting thinners. Patient's daughter states that she does not want patient to be transferred, she prefers patient to stay here. Patient is DO NOT RESUSCITATE. Patient will be admitted, consult with pulmonology. Case discussed in detail with Dr. Hidalgo. - Lab Data Result diagrams: 12/01/20 03:55 11/30/20 09:22 Lab Results 11/30/20 11/30/20 11/30/20 Range/Units 09:22 09:22 09:22 WBC 16.8 H (3.8-10.6) k/uL RBC 4.56 (3.80-5.40) m/uL Hgb 13.4 (11.4-16.0) gm/dL Hct 41.7 (34.0-46.0) % MCV 91.3 (80.0-100.0) fL MCH 29.4 (25.0-35.0) pg MCHC 32.2 (31.0-37.0) g/dL RDW 14.5 (11.5-15.5) % Plt Count 287 (150-450) k/uL MPV 7.3 Neutrophils % 91 % Lymphocytes % 5 % Monocytes % 3 % Eosinophils % 0 % Basophils % 0 % Neutrophils # 15.3 H (1.3-7.7) k/uL Lymphocytes # 0.8 L (1.0-4.8) k/uL Monocytes # 0.5 (0-1.0) k/uL Eosinophils # 0.0 (0-0.7) k/uL Basophils # 0.0 (0-0.2) k/uL PT 10.7 (9.0-12.0) sec INR 1.0 (<1.2) APTT 21.0 L (22.0-30.0) sec D-Dimer 7.87 H (<0.60) mg/L FEU Sodium 132 L (137-145) mmol/L Potassium 3.7 (3.5-5.1) mmol/L Chloride 101 (98-107) mmol/L Carbon Dioxide 20 L (22-30) mmol/L Anion Gap 11 mmol/L BUN 23 H (7-17) mg/dL Creatinine 0.79 (0.52-1.04) mg/dL Est GFR (CKD-EPI)AfAm 81 (>60 ml/min/1.73 sqM) Est GFR (CKD-EPI)NonAf 70 (>60 ml/min/1.73 sqM) Glucose 163 H (74-99) mg/dL Lactic Ac Sepsis Rflx Plasma Lactic Acid Bennie (0.7-2.0) mmol/L Calcium 8.7 (8.4-10.2) mg/dL Magnesium 1.9 (1.6-2.3) mg/dL Ferritin 137.8 (10.0-291.0) ng/mL Total Bilirubin 0.5 (0.2-1.3) mg/dL AST 33 (14-36) U/L ALT 19 (4-34) U/L Alkaline Phosphatase 93 (38-126) U/L Lactate Dehydrogenase 1105 H (313-618) U/L Troponin I (0.000-0.034) ng/mL C-Reactive Protein 300.4 H (<10.0) mg/L Total Protein 6.3 (6.3-8.2) g/dL Albumin 3.1 L (3.5-5.0) g/dL Procalcitonin (0.02-0.09) ng/mL 11/30/20 11/30/20 11/30/20 Range/Units 09:22 09:22 09:51 WBC (3.8-10.6) k/uL RBC (3.80-5.40) m/uL Hgb (11.4-16.0) gm/dL Hct (34.0-46.0) % MCV (80.0-100.0) fL MCH (25.0-35.0) pg MCHC (31.0-37.0) g/dL RDW (11.5-15.5) % Plt Count (150-450) k/uL MPV Neutrophils % % Lymphocytes % % Monocytes % % Eosinophils % % Basophils % % Neutrophils # (1.3-7.7) k/uL Lymphocytes # (1.0-4.8) k/uL Monocytes # (0-1.0) k/uL Eosinophils # (0-0.7) k/uL Basophils # (0-0.2) k/uL PT (9.0-12.0) sec INR (<1.2) APTT (22.0-30.0) sec D-Dimer (<0.60) mg/L FEU Sodium (137-145) mmol/L Potassium (3.5-5.1) mmol/L Chloride (98-107) mmol/L Carbon Dioxide (22-30) mmol/L Anion Gap mmol/L BUN (7-17) mg/dL Creatinine (0.52-1.04) mg/dL Est GFR (CKD-EPI)AfAm (>60 ml/min/1.73 sqM) Est GFR (CKD-EPI)NonAf (>60 ml/min/1.73 sqM) Glucose (74-99) mg/dL Lactic Ac Sepsis Rflx Y Plasma Lactic Acid Bennie 2.2 H* (0.7-2.0) mmol/L Calcium (8.4-10.2) mg/dL Magnesium (1.6-2.3) mg/dL Ferritin (10.0-291.0) ng/mL Total Bilirubin (0.2-1.3) mg/dL AST (14-36) U/L ALT (4-34) U/L Alkaline Phosphatase (38-126) U/L Lactate Dehydrogenase (313-618) U/L Troponin I (0.000-0.034) ng/mL C-Reactive Protein (<10.0) mg/L Total Protein (6.3-8.2) g/dL Albumin (3.5-5.0) g/dL Procalcitonin 0.12 H (0.02-0.09) ng/mL 11/30/20 Range/Units 11:59 WBC (3.8-10.6) k/uL RBC (3.80-5.40) m/uL Hgb (11.4-16.0) gm/dL Hct (34.0-46.0) % MCV (80.0-100.0) fL MCH (25.0-35.0) pg MCHC (31.0-37.0) g/dL RDW (11.5-15.5) % Plt Count (150-450) k/uL MPV Neutrophils % % Lymphocytes % % Monocytes % % Eosinophils % % Basophils % % Neutrophils # (1.3-7.7) k/uL Lymphocytes # (1.0-4.8) k/uL Monocytes # (0-1.0) k/uL Eosinophils # (0-0.7) k/uL Basophils # (0-0.2) k/uL PT (9.0-12.0) sec INR (<1.2) APTT (22.0-30.0) sec D-Dimer (<0.60) mg/L FEU Sodium (137-145) mmol/L Potassium (3.5-5.1) mmol/L Chloride (98-107) mmol/L Carbon Dioxide (22-30) mmol/L Anion Gap mmol/L BUN (7-17) mg/dL Creatinine (0.52-1.04) mg/dL Est GFR (CKD-EPI)AfAm (>60 ml/min/1.73 sqM) Est GFR (CKD-EPI)NonAf (>60 ml/min/1.73 sqM) Glucose (74-99) mg/dL Lactic Ac Sepsis Rflx Plasma Lactic Acid Bennie (0.7-2.0) mmol/L Calcium (8.4-10.2) mg/dL Magnesium (1.6-2.3) mg/dL Ferritin (10.0-291.0) ng/mL Total Bilirubin (0.2-1.3) mg/dL AST (14-36) U/L ALT (4-34) U/L Alkaline Phosphatase (38-126) U/L Lactate Dehydrogenase (313-618) U/L Troponin I 0.329 H* (0.000-0.034) ng/mL C-Reactive Protein (<10.0) mg/L Total Protein (6.3-8.2) g/dL Albumin (3.5-5.0) g/dL Procalcitonin (0.02-0.09) ng/mL Critical Care Time Critical Care Time: Yes Total Critical Care Time: 40 (Patient presented with difficulty breathing, working to breathe, elevated dimer, CT reveals bilateral PEs, with right radicular strain, high-dose heparin was initiated.) Disposition Clinical Impression: COVID-19, Bilateral pulmonary embolism Disposition: ADMITTED IP TO THIS [facility] Condition: Fair Decision Date: 11/30/20 Decision Time: 12:15
[2020-11-30] MEDS ORDERED: SODIUM CHLORIDE 0.9% 1,000 ML IV STA (09:55)
[2020-11-30 10:02] LABS: Prothrombin Time 10.7 sec (9.0-12.0)
[2020-11-30 10:06] LABS: D-Dimer 7.87 mg/L FEU (<0.60)
[2020-11-30 10:14] LABS: Basophils % (A) 0 %; Eosinophils % (A) 0 %; HCT 41.7 % (34.0-46.0); HGB 13.4 gm/dL (11.4-16.0); Lymphocytes # (A) 0.8 k/uL (1.0-4.8); Lymphocytes % (A) 5 %; MCH 29.4 pg (25.0-35.0); MCHC 32.2 g/dL (31.0-37.0); MCV 91.3 fL (80.0-100.0); Mean Platelet Volume 7.3; Monocytes # (A) 0.5 k/uL (0-1.0); Monocytes % (A) 3 %; Neutrophils # (A) 15.3 k/uL (1.3-7.7); Neutrophils % (A) 91 %; Platelet Count 287 k/uL (150-450); RBC 4.56 m/uL (3.80-5.40); RDW 14.5 % (11.5-15.5); WBC 16.8 k/uL (3.8-10.6)
[2020-11-30 10:28] LABS: C Reactive Protein 300.4 mg/L (<10.0)
--- NOTE | 2020-11-30 10:54 | CT ---
EXAMINATION TYPE: CT brain miguel angel vasquez con DATE OF EXAM: 11/30/2020 COMPARISON: CT August 05, 2017 HISTORY: Fell out of bed with headache and neck pain CT DLP: 1435.9 mGycm. Automated Exposure Control for Dose Reduction was Utilized. TECHNIQUE: CT scan of the head and cervical spine are performed without contrast. FINDINGS: There is no acute intracranial hemorrhage or midline shift identified. Mild prominence of ventricles and sulci. [id number] low-attenuation in the deep and periventricular white traci er presumed on the basis of product of chronic small vessel ischemic change in patient of this age. T he calvarium is intact. Left greater than right bilateral scleral calcifications on current study. Pa ranasal sinuses remain clear. Cervical spine is visualized in its entirety from C1 through upper thoracic levels and demonstrates s table and satisfactory alignment without evidence of acute fracture or dislocation. Prevertebral sof t tissue remains within normal limits. The C1-C2 articulation is unremarkable on the coronal images. Vertebral body heights and disc space heights are maintained. Spinal canal is preserved. Axial imag es are unremarkable. Visualized upper lungs show multifocal areas of groundglass opacities. IMPRESSION: 1. There is no acute fracture or dislocation evident in the cervical spine. Bilateral multifocal uppe r lung groundglass opacities suspicious for covid 19 infection, correlate clinically. 2. No acute intracranial hemorrhage or midline shift is seen.
--- NOTE | 2020-11-30 11:34 | CT ---
EXAMINATION TYPE: CT chest angio for PE DATE OF EXAM: 11/30/2020 COMPARISON: Chest CT November 28, 2017. Chest x-ray November 19, 2020 HISTORY: COVID, elevated d-dimer CT DLP: 237.4 mGycm Automated exposure control for dose reduction was used. CONTRAST: CT Chest for pulmonary embolism performed with with IV Contrast, patient injected with 100, wasted 35 mL of Isovue 300. FINDINGS: LUNGS: Worsening bilateral multifocal groundglass opacities from most recent x-ray. Some small areas of organizing consolidation in the lung bases. Tiny right greater than left pleural effusions. Trache obronchial tree is patent. No pneumothorax seen bilaterally MEDIASTINUM: There is satisfactory enhancement of the pulmonary artery and its branches, there is jaleesa ateral pulmonary embolism. Clot begins in the distal right pulmonary artery with extension into middl e and lower lobe branches. There is involvement in the right upper lung pulmonary arterial branches. There is pulmonary embolism in the left lower lobe arterial branch axial image 50. There is involveme nt in the left upper lobe arterial branch axial image 43. New right ventricular dilatation is felt present. Ventricular ratio greater than 1 on current study. New moderate right atrial dilatation noted. Cardiomegaly is present at least moderate coronary artery calcification redemonstrated. No significan t pericardial effusion. New Moderate-sized hiatal hernia.. OTHER: No additional significant abnormality is seen. IMPRESSION: 1. Significant bilateral pulmonary embolism with CT suggestion of right ventricular strain. 2. Worsening bilateral multifocal infiltrates with basilar organizing consolidations consistent with covid-19 infection progression.
[2020-11-30] MEDS ORDERED: HEPARIN SODIUM,PORCINE 5,000 UNIT/ML 1 ML VIAL IV PRN (11:38)
[2020-11-30] MEDS ORDERED: HEPARIN SODIUM,PORCINE 10,000 UNIT/ML 1 ML VIAL IV ONE (11:38)
--- NOTE | 2020-11-30 11:39 | XR ---
EXAM TYPE: LUMBAR SPINE X RAY SERIES COMPARISON: NONE HISTORY: Pain TECHNIQUE: 4 views are submitted. FINDINGS: Alignment is anatomic. The pedicles are intact. The transverse processes are intact. There is no s pondylolysis or spondylolisthesis. Contrast is seen within the collecting systems. Scoliosis with se brianna multilevel degenerative disc disease. Surgical clips seen in the right upper quadrant. IMPRESSION: 1. Nonspecific abdomen.
[2020-11-30] MEDS ORDERED: NALOXONE 0.4 MG/ML 1 ML VIAL IV PRN ×2 (12:10→14:05)
[2020-11-30] MEDS ORDERED: MORPHINE SULFATE 4 MG/ML SYRINGE IV PRN (12:10)
[2020-11-30] MEDS ORDERED: ONDANSETRON 4 MG/2 ML VIAL IVP PRN (12:10)
[2020-11-30] MEDS: HEPARIN SOD,PORK IN 0.45% NACL 25,000 UNIT in 0.45% NACL 1 250ML.BAG IV SCH (12:14)
[2020-11-30] MEDS ORDERED: HYDROcodone/APAP 10-325MG 1 EACH TAB PO PRN (13:59)
[2020-11-30] MEDS ORDERED: BENZONATATE 100 MG CAP PO PRN (13:59)
[2020-11-30] MEDS ORDERED: VANCOMYCIN IV PER PHARMACY 1 EACH MISC MISCELLANE PRN (14:01)
[2020-11-30] MEDS ORDERED: ALBUTEROL HFA INHALER INHALATION PRN (14:02)
[2020-11-30] MEDS ORDERED: MORPHINE SULFATE 2 MG/ML SYRINGE IVP PRN (14:04)
--- NOTE | 2020-11-30 14:08 | P.HPIM ---
History of Present Illness H&P Date: 11/30/20 Chief Complaint: Shortness of breath 85-year-old female presented to the emergency department with complaints of low back pain after she fell today. Patient was diagnosed with covid 19 the end of last month. She was discharged back to her assisted living facility due to be ing stable. According to her daughter patient has been having increasing shortness of breath, decreased appetite, decreased oral intake, increased weakness over the past few days. Patient is a poor historian. Patient states she woke up this morning went to stand up from her bed and slipped and fell off of her bed. She landed on her bottom and currently having severe back pain. Did not hit her head or have a headache or neck pain. She denies any pain in her extremities. No fevers, chest pain. No abdominal pain, no nausea or vomiting. Upon arrival to the ER, she was afebrile, pulse was 118, and sats were 87% on 6 L, BP was 124/76. Patient was placed on nonrebreather mask. She had a CT scan of the head and neck that did not reveal acute intracranial abnormalities or fractures. Patient had a CT angiogram of the chest that showed bilateral PEs with RV strain in addition to multifocal groundglass opacities in both lungs consistent with Covid 19 infection. Review of Systems Complete review of system performed, pertinent positives per HPI, otherwise neg ative Past Medical History Past Medical History: Cancer, CVA/TIA, Dementia, Eye Disorder, GERD/Reflux, GI Bleed, Hypertension, Memory Impairment, Osteoarthritis (OA) Additional Past Medical History / Comment(s): tia's, macular degeneration.ibs, lt breast cancer had sx and chemo-1999 History of Any Multi-Drug Resistant Organisms: None Reported Past Surgical History: Bladder Surgery, Cholecystectomy, Hysterectomy, Tubal Ligation Additional Past Surgical History / Comment(s): lap choley, jaleesa cataracts rmoved- lens implants. cyst removedf rom epiglottis, colonoscopy, lt breast bx-lt masectomy 1999,rectocele,cystocele Past Anesthesia/Blood Transfusion Reactions: No Reported Reaction Past Psychological History: Anxiety Smoking Status: Never smoker Past Alcohol Use History: None Reported Past Drug Use History: None Reported - Past Family History Father History Unknown: Yes Additional Family Medical History / Comment(s): he left when pt was age 5. Mother Family Medical History: COPD, CVA/TIA Additional Family Medical History / Comment(s): emphysema, was heavy smoker, diverticulitis Medications and Allergies Home Medications Medication Instructions Recorded Confirmed Type Ibuprofen [Motrin] 600 mg PO BID@0800,1700 08/05/17 11/30/20 History Omeprazole 20 mg PO DAILY@0800 08/05/17 11/30/20 History busPIRone HCL 15 mg PO TID@0700,1400,2100 08/05/17 11/30/20 History traZODone HCL [Desyrel] 50 mg PO HS@199908/05/17 11/30/20 History Aspirin [Adult Low Dose Aspirin EC] 81 mg PO DAILY@0800 11/23/17 11/30/20 History HYDROcodone/APAP 10-325MG [[place] 1 tab PO Q8H PRN 11/23/17 11/30/20 History 10-325] ALPRAZolam [Xanax] 0.25 mg PO HS@199911/19/20 11/30/20 History Acetaminophen [Tylenol] 325 - 650 mg PO Q6H PRN 11/19/20 11/30/20 History Artificial Tears-Hypromellose 1 drop BOTH EYES TID PRN 11/19/20 11/30/20 History [Artificial Tear Drops] Cyanocobalamin (Vitamin B-12) 1,000 mcg PO DAILY@0800 11/19/20 11/30/20 History [Vitamin B-12] Docusate [Colace] 200 mg PO DAILY@0800 11/19/20 11/30/20 History Furosemide [Lasix] 20 mg PO DAILY PRN 11/19/20 11/30/20 History Gabapentin [Neurontin] 100 mg PO HS@199911/19/20 11/30/20 History Memantine [Namenda] 10 mg PO BID@0800,199911/19/20 11/30/20 History Metoprolol Tartrate [Lopressor] 25 mg PO BID@0800,1700 11/19/20 11/30/20 History Multivitamins, Thera [Multivitamin 1 tab PO DAILY@0800 11/19/20 11/30/20 History (formulary)] Tolterodine ER [Detrol LA] 4 mg PO HS@199911/19/20 11/30/20 History amLODIPine [Norvasc] 2.5 mg PO HS@199911/19/20 11/30/20 History fentaNYL 12MCG/HR PATCH [Duragesic 1 patch TRANSDERM Q72H 11/19/20 11/30/20 History 12MCG/HR] guaiFENesin-DM 100-10MG/5ML 10 ml PO Q6H PRN 11/19/20 11/30/20 History [Robitussin DM] polyethylene glycoL 3350 [Miralax] 17 gm PO DAILY@0800 11/19/20 11/30/20 History Benzonatate [Tessalon Perles] 200 mg PO TID PRN 11/30/20 11/30/20 History Allergies Allergy/AdvReac Type Severity Reaction Status Date / Time No Known Allergies Allergy Verified 11/19/20 21:10 Physical Exam Vitals: Vital Signs Temp Pulse Resp BP Pulse Ox 11/30/20 12:00 103 H 18 107/66 95 11/30/20 11:00 103 H 18 119/55 95 11/30/20 10:00 114 H 18 112/64 95 11/30/20 09:47 114 H 18 112/64 95 11/30/20 09:33 22 11/30/20 08:41 97 F L 118 H 22 124/76 87 L Intake and Output 11/29/20 11/30/20 11/30/20 22:59 06:59 14:59 Other: Weight 72.575 kg Constitutional: Lethargic, sleepy, conversant, pleasant Eyes:Anicteric sclerae, moist conjunctiva, no lid-lag, PERRLA, ENMT: Oropharynx clear, no erythema, exudates Neck: Supple, FROM, no masses, or JVD, No carotid bruits, No thyromegaly Lungs: Scattered rhonchi, decreased breath sounds, increased respiratory effort, no accessory muscle use Cardiovascular: Tachycardic, regular, no murmurs, gallops, or rubs, No peripheral edema Abdominal: Soft, Nontender, no guarding, rebound or rigidity, Normoactive bowel sounds, No hepatomegaly, No splenomegaly, No palpable mass Skin: Normal temperature, tone, texture, turgor, no induration, No subcutaneous nodules, No rash, lesions, No ulcers Extremities: No digital cyanosis, No clubbing, Pedal pulses intact and symmetrical, Radial pulses intact and symmetrical, No calf tenderness Psychiatric: Lethargic, oriented to person, place and time, appropriate affect, intact judgement Neuro: Gen. weakness, Cranial nerves II-XII grossly intact, no focal sensory deficits Results CBC & Chem 7: 11/30/20 09:22 11/30/20 09:22 Labs: Abnormal Lab Results - Last 24 Hours (Table) 11/30/20 11/30/20 11/30/20 Range/Units 09:22 09:22 09:22 WBC 16.8 H (3.8-10.6) k/uL Neutrophils # 15.3 H (1.3-7.7) k/uL Lymphocytes # 0.8 L (1.0-4.8) k/uL APTT 21.0 L (22.0-30.0) sec D-Dimer 7.87 H (<0.60) mg/L FEU Sodium 132 L (137-145) mmol/L Carbon Dioxide 20 L (22-30) mmol/L BUN 23 H (7-17) mg/dL Glucose 163 H (74-99) mg/dL Plasma Lactic Acid Bennie (0.7-2.0) mmol/L Lactate Dehydrogenase 1105 H (313-618) U/L C-Reactive Protein 300.4 H (<10.0) mg/L Albumin 3.1 L (3.5-5.0) g/dL 11/30/20 Range/Units 09:22 WBC (3.8-10.6) k/uL Neutrophils # (1.3-7.7) k/uL Lymphocytes # (1.0-4.8) k/uL APTT (22.0-30.0) sec D-Dimer (<0.60) mg/L FEU Sodium (137-145) mmol/L Carbon Dioxide (22-30) mmol/L BUN (7-17) mg/dL Glucose (74-99) mg/dL Plasma Lactic Acid Bennie 2.2 H* (0.7-2.0) mmol/L Lactate Dehydrogenase (313-618) U/L C-Reactive Protein (<10.0) mg/L Albumin (3.5-5.0) g/dL Assessment and Plan Plan: Acute hypoxic respiratory failure secondary to covid 19 pneumonia as well as bilateral pulmonary emboli Heparin drip Case was discussed with her daughter over the phone, but daughter read to me her living will over the phone which states that she does not want heroic measures or anything invasive to save her life therefore patient will be treated conservatively. Would not pursue thrombolytics at this point due to that. Oxygen to keep sats above above 92%. Steroids, abx, duonebs Pulmonary consult End of life care Morphine prn Continue fentanyl patch Chronic GERD/Reflux, Hypertension, Memory Impairment, Osteoarthritis (OA) All stable Resume meds Admitted to inpatient, expected length of stay more than 2 midnights
[2020-11-30] MEDS ORDERED: VANCOMYCIN 1,500 MG in SODIUM CHLORIDE 0.9% 250 ML IVPB ONE (15:00)
--- NOTE | 2020-11-30 15:43 | P.CNPUL ---
History of Present Illness Consult date: 11/30/20 Requesting physician: Shayne Frias Reason for consult: abnormal CXR/CT (CoVID 19 infection) Chief complaint: Altered mental status, weakness History of present illness: This is a 85-year-old female patient who resides in the assisted living facility. She does have a history of breast cancer status post chemo in 1999, left mastectomy, anxiety, macular degeneration, TIAs, dementia, gastroesophageal reflux disease, hypertension, GI bleed. She had taken a fall earlier today slipped off her bed and hit her head but denied any headache upon arrival. Not on any blood thinners. She apparently was diagnosed with CoVID 19 approximately 10 days ago. Computed tomography scan of the head and spine revealed no acute fracture or dislocation of the cervical spine. Bilateral multifocal upper lung groundglass opacity suspicious for CoVID 19. No acute intracranial hemorrhage or midline shift seen. CT angiogram revealed significant bilateral pulmonary embolism with evidence of right ventricular strain. There is worsening bilateral multifocal infiltrates with basilar organizing consolidations consistent with CoVID 19 infection progression compared to a chest x-ray on 11/19/2020. White count 16.8. Hemoglobin 13.4. Lymphocytes 0.8. D-dimer 7.87. Sodium 132. Potassium 3.7. Creatinine 0.79. Lactic acid 2.2. Glucose 163. LDH 1105. Troponin 0.329. C-reactive protein 300. She has been initiated on a heparin drip. Dexamethasone. Zosyn and vancomycin per hospitalist. There is a note stating the patient did not want to be resuscitated. Do no DO NOT RESUSCITATE/DO NOT INTUBATE CODE STATUS. Her daughter has stated no life saving measures. There is possibly considering comfort care. She is seen in consultation in the emergency room. She is a poor historian. Most information is obtained from the staff. She is currently requiring 15 L nonrebreather mask to maintain O2 saturation in the 90s. She is currently afebrile. Blood pressure stable. Slightly tachycardic. Review of Systems ROS unobtainable: due to mental status Past Medical History Past Medical History: Cancer, CVA/TIA, Dementia, Eye Disorder, GERD/Reflux, GI Bleed, Hypertension, Memory Impairment, Osteoarthritis (OA) Additional Past Medical History / Comment(s): tia's, macular degeneration.ibs, lt breast cancer had sx and chemo-1999 History of Any Multi-Drug Resistant Organisms: None Reported Past Surgical History: Bladder Surgery, Cholecystectomy, Hysterectomy, Tubal Ligation Additional Past Surgical History / Comment(s): lap choley, jaleesa cataracts rmoved- lens implants. cyst removedf rom epiglottis, colonoscopy, lt breast bx-lt masectomy 1999,rectocele,cystocele Past Anesthesia/Blood Transfusion Reactions: No Reported Reaction Past Psychological History: Anxiety Additional Psychological History / Comment(s): pt is of approx 3 years. in may moved to [place]. Smoking Status: Never smoker Past Alcohol Use History: None Reported Additional Past Alcohol Use History / Comment(s): started smoking 1964 and quit 1984, smoked 1 ppd or less Past Drug Use History: None Reported - Past Family History Father History Unknown: Yes Additional Family Medical History / Comment(s): he left when pt was age 5. Mother Family Medical History: COPD, CVA/TIA Additional Family Medical History / Comment(s): emphysema, was heavy smoker, diverticulitis Medications and Allergies Home Medications Medication Instructions Recorded Confirmed Type Ibuprofen [Motrin] 600 mg PO BID@0800,1700 08/05/17 11/30/20 History Omeprazole 20 mg PO DAILY@0808/05/17 11/30/20 History busPIRone HCL 15 mg PO TID@0700,1400,2100 08/05/17 11/30/20 History traZODone HCL [Desyrel] 50 mg PO HS@199908/05/17 11/30/20 History Aspirin [Adult Low Dose Aspirin EC] 81 mg PO DAILY@0800 11/23/17 11/30/20 History HYDROcodone/APAP 10-325MG [[place] 1 tab PO Q8H PRN 11/23/17 11/30/20 History 10-325] ALPRAZolam [Xanax] 0.25 mg PO HS@199911/19/20 11/30/20 History Acetaminophen [Tylenol] 325 - 650 mg PO Q6H PRN 11/19/20 11/30/20 History Artificial Tears-Hypromellose 1 drop BOTH EYES TID PRN 11/19/20 11/30/20 History [Artificial Tear Drops] Cyanocobalamin (Vitamin B-12) 1,000 mcg PO DAILY@0800 11/19/20 11/30/20 History [Vitamin B-12] Docusate [Colace] 200 mg PO DAILY@0800 11/19/20 11/30/20 History Furosemide [Lasix] 20 mg PO DAILY PRN 11/19/20 11/30/20 History Gabapentin [Neurontin] 100 mg PO HS@199911/19/20 11/30/20 History Memantine [Namenda] 10 mg PO BID@0800,199911/19/20 11/30/20 History Metoprolol Tartrate [Lopressor] 25 mg PO BID@0800,1700 11/19/20 11/30/20 History Multivitamins, Thera [Multivitamin 1 tab PO DAILY@0800 11/19/20 11/30/20 History (formulary)] Tolterodine ER [Detrol LA] 4 mg PO HS@199911/19/20 11/30/20 History amLODIPine [Norvasc] 2.5 mg PO HS@199911/19/20 11/30/20 History fentaNYL 12MCG/HR PATCH [Duragesic 1 patch TRANSDERM Q72H 11/19/20 11/30/20 History 12MCG/HR] guaiFENesin-DM 100-10MG/5ML 10 ml PO Q6H PRN 11/19/20 11/30/20 History [Robitussin DM] polyethylene glycoL 3350 [Miralax] 17 gm PO DAILY@0800 11/19/20 11/30/20 History Benzonatate [Tessalon Perles] 200 mg PO TID PRN 11/30/20 11/30/20 History Allergies Allergy/AdvReac Type Severity Reaction Status Date / Time No Known Allergies Allergy Verified 11/19/20 21:10 Physical Exam Vitals: Vital Signs Temp Pulse Pulse Resp BP BP Pulse Ox 11/30/20 15:07 98.1 F 102 H 20 128/66 91 L 11/30/20 14:18 97 F L 103 H 18 107/66 95 11/30/20 14:00 97 F L 103 H 18 107/66 95 11/30/20 13:00 18 95 11/30/20 12:00 103 H 18 107/66 95 11/30/20 11:00 103 H 18 119/55 95 11/30/20 10:00 114 H 18 112/64 95 11/30/20 09:47 114 H 18 112/64 95 11/30/20 09:33 22 11/30/20 08:41 97 F L 118 H 22 124/76 87 L Intake and Output 11/30/20 11/30/20 11/30/20 06:59 14:59 22:59 Other: Weight 72.575 kg 72.575 kg GENERAL EXAM: Arousable, 85-year-old female patient, on 15 L nonrebreather, fairly comfortable in no apparent distress. HEAD: Normocephalic. EYES: Normal reaction of pupils, equal size. NOSE: Clear with pink turbinates. THROAT: No erythema or exudates. NECK: No masses, no JVD. CHEST: No chest wall deformity. LUNGS: Equal air entry with coarse crackles in the bilateral posterior bases. CVS: S1 and S2 normal with no audible murmur, regular rhythm. ABDOMEN: No hepatosplenomegaly, normal bowel sounds, no guarding or rigidity. SPINE: No scoliosis or deformity SKIN: No rashes CENTRAL NERVOUS SYSTEM: No focal deficits, tone is normal in all 4 extremities. EXTREMITIES: There is no peripheral edema. No clubbing, no cyanosis. Peripheral pulses are intact. Results - Laboratory Findings CBC and BMP: 11/30/20 09:22 11/30/20 09:22 PT/INR, D-dimer PT 10.7 sec (9.0-12.0) 11/30/20 09:22 INR 1.0 (<1.2) 11/30/20 09:22 D-Dimer 7.87 mg/L FEU (<0.60) H 11/30/20 09:22 Abnormal lab findings: Abnormal Labs 11/30/20 11/30/20 11/30/20 09:22 09:22 09:22 WBC 16.8 H Neutrophils # 15.3 H Lymphocytes # 0.8 L APTT 21.0 L D-Dimer 7.87 H Sodium 132 L Carbon Dioxide 20 L BUN 23 H Glucose 163 H Plasma Lactic Acid Bennie Lactate Dehydrogenase 1105 H Troponin I C-Reactive Protein 300.4 H Albumin 3.1 L 11/30/20 11/30/20 09:22 11:59 WBC Neutrophils # Lymphocytes # APTT D-Dimer Sodium Carbon Dioxide BUN Glucose Plasma Lactic Acid Bennie 2.2 H* Lactate Dehydrogenase Troponin I 0.329 H* C-Reactive Protein Albumin - Diagnostic Findings Chest x-ray: image reviewed CT scan - chest: image reviewed Assessment and Plan Assessment: 1 Acute hypoxemic respiratory failure secondary to bilateral pulmonary emboli with right ventricular heart strain and along with CoVID 19 pneumonia 2 Status post fall with no evidence of lumbar fracture or cervical fracture. No acute intracranial process 3 Recent diagnosis of CoVID 19 infection approximate 10 days ago, elevated inflammatory markers 4 Dementia 5 History of CVA/TIA 6 Hypertension 7 Gastroesophageal reflux disease 8 History of GI bleed 9 Osteoarthritis 10 History of left-sided breast cancer status post mastectomy and chemotherapy in 1999 11 History of anxiety 12 Macular degeneration Plan: The patient was seen and evaluated by Dr. Suazo Chest x-ray, CAT scan, labs reviewed No need for antibiotics at this time Significant bilateral pulmonary emboli with right heart strain Family has stated they were not planning any intervention or extraordinary measures at this time She is a DO NOT RESUSCITATE/DO NOT INTUBATE CODE STATUS Possibly to be hospice/comfort care In the interim we'll continue with heparin drip We'll continue to follow and make further recommendations based on her clinical status I, the cosigning physician, performed a history & physical examination of the patient. Lungs sounds with bilateral coarse crackles. Maintaining good O2 saturations in the 90s on 15 L nonrebreather. I discussed the assessment and plan of care with my nurse practitioner, Tiffany Rudolph. I attest to the above note as dictated by her. Time with Patient: Greater than 30
[2020-11-30] MEDS ORDERED: PIPERACILLIN-TAZOBACTAM 3.375 GM in SODIUM CHLORIDE 0.9% 100 ML IVPB SCH (16:00)
[2020-11-30 16:05] LABS: Ferritin 137.8 ng/mL (10.0-291.0)
[2020-11-30] MEDS: ALBUTEROL HFA INHALER INHALATION SCH ×2 (16:27→20:41)
[2020-11-30 16:54] LABS: Glucose,Whole Blood 110 mg/dL (75-99)
[2020-11-30] MEDS: METOPROLOL TARTRATE 25 MG TAB PO SCH (17:09)
[2020-11-30] MEDS: busPIRone HCl 5 MG TAB PO SCH ×2 (17:09→20:46)
[2020-11-30] MEDS: DEXAMETHASONE SOD PHOSPHATE 10 MG/ML 1 ML VIAL IV SCH (17:22)
[2020-11-30] MEDS: amLODIPine 2.5 MG TAB PO SCH (20:45)
[2020-11-30] MEDS: ALPRAZolam 0.25 MG TAB PO SCH (20:45)
[2020-11-30] MEDS: GABAPENTIN 100 MG CAP PO SCH (20:45)
[2020-11-30] MEDS: traZODone HCL 50 MG TAB PO SCH (20:46)
[2020-11-30] MEDS: OXYBUTYNIN XL 5 MG TAB.ER.24 PO SCH (20:46)
[2020-11-30 21:10] LABS: Glucose,Whole Blood 138 mg/dL (75-99)
[2020-12-01 04:20] LABS: Basophils % (A) 0 %; Eosinophils % (A) 0 %; HCT 37.7 % (34.0-46.0); HGB 12.4 gm/dL (11.4-16.0); Hypochromasia Slight; Lymphocytes # (A) 0.3 k/uL (1.0-4.8); Lymphocytes % (A) 3 %; MCH 30.3 pg (25.0-35.0); MCHC 32.8 g/dL (31.0-37.0); MCV 92.6 fL (80.0-100.0); Monocytes # (A) 0.2 k/uL (0-1.0); Monocytes % (A) 1 %; Neutrophils # (A) 11.1 k/uL (1.3-7.7); Neutrophils % (A) 95 %; Platelet Count 203 k/uL (150-450); RBC 4.07 m/uL (3.80-5.40); RDW 14.1 % (11.5-15.5); WBC 11.6 k/uL (3.8-10.6)
[2020-12-01 06:10] LABS: Glucose,Whole Blood 143 mg/dL (75-99)
[2020-12-01] MEDS: busPIRone HCl 5 MG TAB PO SCH ×3 (06:24→21:02)
[2020-12-01] MEDS: PANTOPRAZOLE 40 MG TABLET PO SCH (06:24)
[2020-12-01] MEDS: ASPIRIN 81 MG PO SCH (08:31)
[2020-12-01] MEDS: METOPROLOL TARTRATE 25 MG TAB PO SCH ×2 (08:31→17:15)
[2020-12-01] MEDS: DEXAMETHASONE SOD PHOSPHATE 10 MG/ML 1 ML VIAL IV SCH (08:31)
[2020-12-01] MEDS: ALBUTEROL HFA INHALER INHALATION SCH ×4 (08:50→20:19)
--- NOTE | 2020-12-01 11:57 | P.PN ---
Subjective Progress Note Date: 12/01/20 Principal diagnosis: sob Patient continues to require 100% nonrebreather mask to keep her saturations above 90%. She continues to work hard on the breathing. Has some cough as w ell. She is only oriented 1 and not able to give a reliable history. Denied any pain currently. No fevers or chills. Objective - Vital Signs Vital signs: Vital Signs Temp 97.6 F 12/01/20 08:29 Pulse 76 12/01/20 08:29 Resp 18 12/01/20 08:29 BP 114/62 12/01/20 08:29 Pulse Ox 98 12/01/20 09:02 Intake & Output 11/30/20 12/01/20 12/01/20 18:59 06:59 18:59 Intake Total 0 439.915 Output Total 200 Balance 0 239.915 Weight 72.575 kg 64.5 kg Intake: Intake, IV Titration 379.915 Amount Heparin Sod,Pork in 0.45% 179.915 NaCl 25,000 unit In 0.45 % NaCl 1 250ml.bag @ 18 UNITS/KG/HR 13.064 mls/hr IV .Q19H9M [facility] Rx#: [id number] Sodium Chloride 0.9% 1, 200 000 ml @ 999 mls/hr IV . Q1H1M [facility] Rx#:[id number] Oral 0 60 Output: Urine 200 Other: # Voids 1 # Bowel Movements 1 - Exam Constitutional: Lethargic, sleepy, conversant, pleasant Eyes:Anicteric sclerae, moist conjunctiva, no lid-lag, PERRLA, ENMT: Oropharynx clear, no erythema, exudates Neck: Supple, FROM, no masses, or JVD, No carotid bruits, No thyromegaly Lungs: Scattered rhonchi, decreased breath sounds, increased respiratory effort, no accessory muscle use Cardiovascular: Tachycardic, regular, no murmurs, gallops, or rubs, No peripheral edema Abdominal: Soft, Nontender, no guarding, rebound or rigidity, Normoactive bowel sounds, No hepatomegaly, No splenomegaly, No palpable mass Skin: Normal temperature, tone, texture, turgor, no induration, No subcutaneous nodules, No rash, lesions, No ulcers Extremities: No digital cyanosis, No clubbing, Pedal pulses intact and symmetrical, Radial pulses intact and symmetrical, No calf tenderness Psychiatric: Lethargic, oriented to person only Neuro: Gen. weakness, Cranial nerves II-XII grossly intact, no focal sensory d eficits - Labs CBC & Chem 7: 12/01/20 03:55 11/30/20 09:22 Labs: Abnormal Lab Results - Last 24 Hours (Table) 11/30/20 11/30/20 11/30/20 Range/Units 09:22 11:59 16:53 WBC (3.8-10.6) k/uL Neutrophils # (1.3-7.7) k/uL Lymphocytes # (1.0-4.8) k/uL APTT (22.0-30.0) sec POC Glucose (mg/dL) 110 H (75-99) mg/dL Troponin I 0.329 H* (0.000-0.034) ng/mL Procalcitonin 0.12 H (0.02-0.09) ng/mL 11/30/20 11/30/20 12/01/20 Range/Units 18:07 21:05 03:55 WBC 11.6 H (3.8-10.6) k/uL Neutrophils # 11.1 H (1.3-7.7) k/uL Lymphocytes # 0.3 L (1.0-4.8) k/uL APTT 133.9 H* (22.0-30.0) sec POC Glucose (mg/dL) 138 H (75-99) mg/dL Troponin I (0.000-0.034) ng/mL Procalcitonin (0.02-0.09) ng/mL 12/01/20 12/01/20 Range/Units 03:55 06:09 WBC (3.8-10.6) k/uL Neutrophils # (1.3-7.7) k/uL Lymphocytes # (1.0-4.8) k/uL APTT 86.7 H (22.0-30.0) sec POC Glucose (mg/dL) 143 H (75-99) mg/dL Troponin I (0.000-0.034) ng/mL Procalcitonin (0.02-0.09) ng/mL Assessment and Plan Plan: Acute hypoxic respiratory failure secondary to covid 19 pneumonia as well as bilateral pulmonary emboli Heparin drip Case was discussed with her daughter over the phone, daughter read to me her living will over the phone which states that she does not want heroic measures or anything invasive to save her life therefore patient will be treated conservatively. Would not pursue thrombolytics at this point due to that. Oxygen to keep sats above above 92%. Patient still requiring 100% nonrebreather. Steroids, duonebs Pulmonary consult appreciated, antibiotics discontinued Choking and possible aspiration Swallow evaluation, discussed with nursing End of life care Morphine prn Continue fentanyl patch Chronic GERD/Reflux, Hypertension, Memory Impairment, Osteoarthritis (OA) All stable Resume meds
[2020-12-01 11:58] LABS: Glucose,Whole Blood 150 mg/dL (75-99)
[2020-12-01] MEDS: HEPARIN SOD,PORK IN 0.45% NACL 25,000 UNIT in 0.45% NACL 1 250ML.BAG IV SCH (12:00)
[2020-12-01] MEDS ORDERED: INSULIN ASPART (NovoLOG) 100 UNIT/ML VIAL SQ SCH (12:30)
--- NOTE | 2020-12-01 15:07 | P.PN ---
Subjective Progress Note Date: 12/01/20 Principal diagnosis: Acute hypoxic respiratory failure secondary to bilateral pulmonary embolism and covid 19 pneumonia. This is a 85-year-old female patient who resides in the assisted living facility. She does have a history of breast cancer status post chemo in 1999, left mastectomy, anxiety, macular degeneration, TIAs, dementia, gastroesophageal reflux disease, hypertension, GI bleed. She had taken a fall earlier today slipped off her bed and hit her head but denied any headache upon arrival. Not on any blood thinners. She apparently was diagnosed with CoVID 19 approximately 10 days ago. Computed tomography scan of the head and spine revealed no acute fracture or dislocation of the cervical spine. Bilateral multifocal upper lung groundglass opacity suspicious for CoVID 19. No acute intracranial hemorrhage or midline shift seen. CT angiogram revealed significant bilateral pulmonary embolism with evidence of right ventricular strain. There is worsening bi lateral multifocal infiltrates with basilar organizing consolidations consistent with CoVID 19 infection progression compared to a chest x-ray on 11/19/2020. White count 16.8. Hemoglobin 13.4. Lymphocytes 0.8. D-dimer 7.87. Sodium 132. Potassium 3.7. Creatinine 0.79. Lactic acid 2.2. Glucose 163. LDH 1105. Troponin 0.329. C-reactive protein 300. She has been initiated on a heparin drip. Dexamethasone. Zosyn and vancomycin per hospitalist. There is a note stating the patient did not want to be resuscitated. Do no DO NOT RESUSCITATE/DO NOT INTUBATE CODE STATUS. Her daughter has stated no life saving measures. There is possibly considering comfort care. She is seen in [facility] in the emergency room. She is a poor historian. Most information is obtained from the staff. She is currently requiring 15 L nonrebreather mask to maintain O2 saturation in the 90s. She is currently afebrile. Blood pressure stable. Slightly tachycardic. Reevaluated today on 12/01/2020, patient remains marginal at best. Remains on 15 L high flow nasal cannula O2 saturation is about 93-94% at best, intermittently on a nonrebreather mask at 15 L high flow patient does not seem to be in distress in spite of her multiple medical problems including acute pulmonary embolism with right ventricular strain and including Covid 19 pneumonia. At one point up on admission, the admitting physician was considering comfort care measures, however this was changed to conservative treatment, and the patient's CODE STATUS remains DO NOT RESUSCITATE. PTT is 41.4 today. D-dimer is 7.87. Objective - Vital Signs Vital signs: Vital Signs Temp 97.6 F 12/01/20 12:00 Pulse 82 12/01/20 12:00 Resp 18 12/01/20 12:00 BP 104/52 12/01/20 12:00 Pulse Ox 93 L 12/01/20 13:08 Intake & Output 11/30/20 12/01/20 12/01/20 18:59 06:59 18:59 Intake Total 0 439.915 307.618 Output Total 200 Balance 0 239.915 307.618 Weight 72.575 kg 64.5 kg Intake: Intake, IV Titration 379.915 67.618 Amount Heparin Sod,Pork in 0.45% 179.915 67.618 NaCl 25,000 unit In 0.45 % NaCl 1 250ml.bag @ 18 UNITS/KG/HR 13.064 mls/hr IV .Q19H9M [facility] Rx#: [id number] Sodium Chloride 0.9% 1, 200 000 ml @ 999 mls/hr IV . Q1H1M [facility] Rx#:[id number] Oral 0 60 240 Output: Urine 200 Other: # Voids 1 # Bowel Movements 1 - Exam GENERAL EXAM: Arousable, 85-year-old female patient, on 15 L nonrebreather, fairly comfortable in no apparent distress. HEAD: Normocephalic. Atraumatic. ENT: PERRLA, EOMI, nonicteric sclerae. Throat is clear. CHEST: No chest wall deformity. LUNGS: Equal air entry with coarse crackles in the bilateral posterior bases. CVS: S1 and S2 normal with no audible murmur, regular rhythm. ABDOMEN: No hepatosplenomegaly, normal bowel sounds, no guarding or rigidity. SPINE: No scoliosis or deformity SKIN: No rashes CENTRAL NERVOUS SYSTEM: No focal deficits, tone is normal in all 4 extremities. EXTREMITIES: There is no peripheral edema. No clubbing, no cyanosis. Peripheral pulses are intact. - Labs CBC & Chem 7: 12/01/20 03:55 11/30/20 09:22 Labs: Abnormal Lab Results - Last 24 Hours (Table) 11/30/20 11/30/20 11/30/20 Range/Units 09:22 16:53 18:07 WBC (3.8-10.6) k/uL Neutrophils # (1.3-7.7) k/uL Lymphocytes # (1.0-4.8) k/uL APTT 133.9 H* (22.0-30.0) sec POC Glucose (mg/dL) 110 H (75-99) mg/dL Procalcitonin 0.12 H (0.02-0.09) ng/mL 11/30/20 12/01/20 12/01/20 Range/Units 21:05 03:55 03:55 WBC 11.6 H (3.8-10.6) k/uL Neutrophils # 11.1 H (1.3-7.7) k/uL Lymphocytes # 0.3 L (1.0-4.8) k/uL APTT 86.7 H (22.0-30.0) sec POC Glucose (mg/dL) 138 H (75-99) mg/dL Procalcitonin (0.02-0.09) ng/mL 12/01/20 12/01/20 12/01/20 Range/Units 06:09 11:16 11:45 WBC (3.8-10.6) k/uL Neutrophils # (1.3-7.7) k/uL Lymphocytes # (1.0-4.8) k/uL APTT 41.4 H (22.0-30.0) sec POC Glucose (mg/dL) 143 H 150 H (75-99) mg/dL Procalcitonin (0.02-0.09) ng/mL Assessment and Plan Assessment: Impression: Acute hypoxic respiratory failure secondary to acute pulmonary embolism and acute covid 19 pneumonia. Her diagnosis of Covid 19 was 10 days ago. History of CVA/TIA. History of dementia. Benign essential hypertension. GERD without esophagitis. History of GI bleeding. History of breast cancer and previous left mastectomy and chemotherapy. Recommendation: Continue present supportive care measures. Continue heparin and transition eventually to eliquis Continue the Covid 19 cocktail. Continue conservative measures. Consider hospice or comfort care measures. We'll continue to follow. Time with Patient: Less than 30
[2020-12-01 16:52] LABS: Glucose,Whole Blood 164 mg/dL (75-99)
[2020-12-01] MEDS: INSULIN ASPART (NovoLOG) 100 UNIT/ML VIAL SQ SCH ×2 (17:15→21:02)
[2020-12-01 20:38] LABS: Glucose,Whole Blood 171 mg/dL (75-99)
[2020-12-01] MEDS: ALPRAZolam 0.25 MG TAB PO SCH (21:02)
[2020-12-01] MEDS: GABAPENTIN 100 MG CAP PO SCH (21:02)
[2020-12-01] MEDS: traZODone HCL 50 MG TAB PO SCH (21:02)
[2020-12-01] MEDS: OXYBUTYNIN XL 5 MG TAB.ER.24 PO SCH (21:02)
[2020-12-01] MEDS: amLODIPine 2.5 MG TAB PO SCH (21:02)
[2020-12-02] MEDS: guaiFENesin-DM 100-10MG/5ML 10 ML CUP PO PRN (04:18)
[2020-12-02 06:29] LABS: Glucose,Whole Blood 152 mg/dL (75-99)
[2020-12-02] MEDS: HEPARIN SOD,PORK IN 0.45% NACL 25,000 UNIT in 0.45% NACL 1 250ML.BAG IV SCH (06:33)
[2020-12-02] MEDS: INSULIN ASPART (NovoLOG) 100 UNIT/ML VIAL SQ SCH ×4 (06:33→20:51)
[2020-12-02] MEDS: busPIRone HCl 5 MG TAB PO SCH ×3 (06:34→20:50)
[2020-12-02] MEDS: PANTOPRAZOLE 40 MG TABLET PO SCH (06:34)
[2020-12-02 07:38] LABS: Basophils % (A) 0 %; Eosinophils % (A) 0 %; HCT 34.4 % (34.0-46.0); HGB 11.3 gm/dL (11.4-16.0); Lymphocytes # (A) 0.3 k/uL (1.0-4.8); Lymphocytes % (A) 2 %; MCH 29.9 pg (25.0-35.0); MCHC 32.7 g/dL (31.0-37.0); MCV 91.4 fL (80.0-100.0); Mean Platelet Volume 7.5; Monocytes # (A) 0.3 k/uL (0-1.0); Monocytes % (A) 2 %; Neutrophils # (A) 13.5 k/uL (1.3-7.7); Neutrophils % (A) 95 %; Platelet Count 235 k/uL (150-450); RBC 3.77 m/uL (3.80-5.40); RDW 14.3 % (11.5-15.5); WBC 14.2 k/uL (3.8-10.6)
[2020-12-02] MEDS: ALBUTEROL HFA INHALER INHALATION SCH ×4 (08:47→19:20)
[2020-12-02] MEDS: ASPIRIN 81 MG PO SCH (09:08)
[2020-12-02] MEDS: DEXAMETHASONE SOD PHOSPHATE 10 MG/ML 1 ML VIAL IV SCH (09:08)
[2020-12-02] MEDS: METOPROLOL TARTRATE 25 MG TAB PO SCH ×2 (09:08→17:29)
[2020-12-02 11:57] LABS: Glucose,Whole Blood 129 mg/dL (75-99)
--- NOTE | 2020-12-02 15:26 | P.PN ---
Subjective Progress Note Date: 12/02/20 Principal diagnosis: sob Patient's breathing is feeling better today. She states that she is having occasional urge to urinate but no urine comes out. Nursing reported some issues with aspiration yesterday but today it was reported that she ate all of her breakfast without difficulties. No fevers or chills. No pain. She continues to be on 15 L high flow nasal cannula. Objective - Vital Signs Vital signs: Vital Signs Temp 99.4 F 12/02/20 12:00 Pulse 90 12/02/20 12:00 Resp 20 12/02/20 12:00 BP 135/71 12/02/20 12:00 Pulse Ox 92 L 12/02/20 12:00 Intake & Output 12/01/20 12/02/20 12/02/20 18:59 06:59 18:59 Intake Total 547.618 480 Balance 547.618 480 Weight 68.5 kg Intake: Intake, IV Titration 67.618 Amount Heparin Sod,Pork in 0.45% 67.618 NaCl 25,000 unit In 0.45 % NaCl 1 250ml.bag @ 18 UNITS/KG/HR 13.064 mls/hr IV .Q19H9M [facility] Rx#: [id number] Oral 480 480 Other: # Voids 1 2 1 # Bowel Movements 1 1 1 - Exam Constitutional: Lethargic, sleepy, conversant, pleasant Eyes:Anicteric sclerae, moist conjunctiva, no lid-lag, PERRLA, ENMT: Oropharynx clear, no erythema, exudates Neck: Supple, FROM, no masses, or JVD, No carotid bruits, No thyromegaly Lungs: Scattered rhonchi, decreased breath sounds, increased respiratory effort, no accessory muscle use Cardiovascular: Tachycardic, regular, no murmurs, gallops, or rubs, No peripheral edema Abdominal: Soft, Nontender, no guarding, rebound or rigidity, Normoactive bowel sounds, No hepatomegaly, No splenomegaly, No palpable mass Skin: Normal temperature, tone, texture, turgor, no induration, No subcutaneous nodules, No rash, lesions, No ulcers Extremities: No digital cyanosis, No clubbing, Pedal pulses intact and symmetrical, Radial pulses intact and symmetrical, No calf tenderness Psychiatric: Lethargic, oriented to person only Neuro: Gen. weakness, Cranial nerves II-XII grossly intact, no focal sensory deficits - Labs CBC & Chem 7: 12/02/20 07:02 11/30/20 09:22 Labs: Abnormal Lab Results - Last 24 Hours (Table) 12/01/20 12/01/20 12/01/20 Range/Units 16:50 18:15 20:36 WBC (3.8-10.6) k/uL RBC (3.80-5.40) m/uL Hgb (11.4-16.0) gm/dL Neutrophils # (1.3-7.7) k/uL Lymphocytes # (1.0-4.8) k/uL APTT 63.1 H (22.0-30.0) sec POC Glucose (mg/dL) 164 H 171 H (75-99) mg/dL 12/02/20 12/02/20 12/02/20 Range/Units 06:23 07:02 07:02 WBC 14.2 H (3.8-10.6) k/uL RBC 3.77 L (3.80-5.40) m/uL Hgb 11.3 L (11.4-16.0) gm/dL Neutrophils # 13.5 H (1.3-7.7) k/uL Lymphocytes # 0.3 L (1.0-4.8) k/uL APTT 54.4 H (22.0-30.0) sec POC Glucose (mg/dL) 152 H (75-99) mg/dL 12/02/20 Range/Units 11:55 WBC (3.8-10.6) k/uL RBC (3.80-5.40) m/uL Hgb (11.4-16.0) gm/dL Neutrophils # (1.3-7.7) k/uL Lymphocytes # (1.0-4.8) k/uL APTT (22.0-30.0) sec POC Glucose (mg/dL) 129 H (75-99) mg/dL Assessment and Plan Plan: Acute hypoxic respiratory failure secondary to covid 19 pneumonia as well as bilateral pulmonary emboli Heparin drip Case was discussed with her daughter over the phone, daughter read to me her living will over the phone which states that she does not want heroic measures or anything invasive to save her life therefore patient will be treated conservatively. Would not pursue thrombolytics at this point due to that. Oxygen to keep sats above above 92%. Patient still requiring 100% nonrebreather. Steroids, duonebs Pulmonary consult appreciated, antibiotics discontinued End of life care Morphine prn Continue fentanyl patch Chronic GERD/Reflux, Hypertension, Memory Impairment, Osteoarthritis (OA) All stable Resume meds
[2020-12-02 17:01] LABS: Glucose,Whole Blood 179 mg/dL (75-99)
[2020-12-02 19:59] LABS: Glucose,Whole Blood 140 mg/dL (75-99)
[2020-12-02] MEDS: traZODone HCL 50 MG TAB PO SCH (20:50)
[2020-12-02] MEDS: amLODIPine 2.5 MG TAB PO SCH (20:50)
[2020-12-02] MEDS: ALPRAZolam 0.25 MG TAB PO SCH (20:51)
[2020-12-02] MEDS: GABAPENTIN 100 MG CAP PO SCH (20:51)
[2020-12-02] MEDS: OXYBUTYNIN XL 5 MG TAB.ER.24 PO SCH (20:51)
[2020-12-03] MEDS: guaiFENesin-DM 100-10MG/5ML 10 ML CUP PO PRN (03:14)
[2020-12-03 06:30] LABS: Glucose,Whole Blood 108 mg/dL (75-99)
[2020-12-03] MEDS: PANTOPRAZOLE 40 MG TABLET PO SCH (06:50)
[2020-12-03] MEDS: busPIRone HCl 5 MG TAB PO SCH ×2 (06:50→16:33)
[2020-12-03] MEDS: INSULIN ASPART (NovoLOG) 100 UNIT/ML VIAL SQ SCH ×3 (06:51→17:38)
[2020-12-03 07:46] LABS: Basophils % (A) 0 %; Eosinophils % (A) 0 %; HCT 34.2 % (34.0-46.0); HGB 11.3 gm/dL (11.4-16.0); Hypochromasia Slight; Lymphocytes # (A) 0.4 k/uL (1.0-4.8); Lymphocytes % (A) 3 %; MCH 30.2 pg (25.0-35.0); MCV 91.4 fL (80.0-100.0); Mean Platelet Volume 7.6; Monocytes # (A) 0.2 k/uL (0-1.0); Monocytes % (A) 2 %; Neutrophils # (A) 11.9 k/uL (1.3-7.7); Neutrophils % (A) 94 %; Platelet Count 251 k/uL (150-450); RBC 3.74 m/uL (3.80-5.40); RDW 14.3 % (11.5-15.5); WBC 12.7 k/uL (3.8-10.6)
[2020-12-03] MEDS: ALBUTEROL HFA INHALER INHALATION SCH ×3 (08:34→15:52)
[2020-12-03] MEDS: HEPARIN SOD,PORK IN 0.45% NACL 25,000 UNIT in 0.45% NACL 1 250ML.BAG IV SCH (09:43)
[2020-12-03] MEDS: METOPROLOL TARTRATE 25 MG TAB PO SCH ×2 (09:45→16:34)
[2020-12-03] MEDS: DEXAMETHASONE SOD PHOSPHATE 10 MG/ML 1 ML VIAL IV SCH (09:45)
[2020-12-03] MEDS: ASPIRIN 81 MG PO SCH (09:45)
[2020-12-03 11:55] LABS: Glucose,Whole Blood 109 mg/dL (75-99)
--- NOTE | 2020-12-03 12:42 | P.PN ---
Subjective Progress Note Date: 12/03/20 Principal diagnosis: Bilateral Pulmonary Emboli Patient is an 85-year-old female with a past medical history of hypertension, CVA, macular degeneration, breast cancer with chemotherapy and 2000, GERD, and dementia. She presented to [facility] and 11/30/20 with a chief complaint of lower back pain status post fall. In addition patient was reported to have increasing shortness of breath, decreased appetite decreased oral intake increased weakness and recent diagnosis of Covid 19 on 11/19/20. In the ER patient was found to be hypoxic and was taken to CT which revealed bilateral PEs with right ventricular strain in addition to multifocal pneumonia consistent with Covid pneumonia infection. Patient was admitted to stepdown unit started on IV heparin per ACS protocol for acute PE. 12/03/19. Patient was seen and fully evaluated at the bedside. Respirations slightly tachypneic and labored on 15 L high flow nasal cannula accompanied by 15 L nonrebreather mask. Patient alert to person, place, and time. Patient states that she feels like she is breathing a little better. Patient states she wants to continue with oxygen treatment. She denies having a headache, lightheadedness, dizziness, chest pain, palpitations, or having any episodes of nausea or vomiting. Patient's daughter was with her and discussing patient's status this morning. Labs reveal improvement in leukocytosis now WBC count of 12.7 with initial presentation of 16.8. Hemoglobin stable at 11.3. Today is day 4 of Decadron 6 mg daily. Patient started on zinc, melatonin, vitamin D, and vitamin C per Covid protocol. Pt to remain a DNR/DNI with yes to all medical interventions and no to CPR, Intubation, or Mechanical ventilation per her choice. We will repeat a.m. labs and continue to titrate as needed to maintain SpO2 equal to or greater than 92% and all times. Heparin infusion to continue for treatment of bilateral PEs. Objective - Vital Signs Vital signs: Vital Signs Temp 97 F L 12/03/20 07:45 Pulse 88 12/03/20 10:55 Resp 24 12/03/20 10:55 BP 147/88 12/03/20 10:55 Pulse Ox 92 L 12/03/20 10:55 Intake & Output 12/02/20 12/03/20 12/03/20 18:59 06:59 18:59 Intake Total 970 240 Output Total 400 Balance 970 -400 240 Weight 75 kg Intake: Intake, IV Titration 250 Amount Heparin Sod,Pork in 0.45% 250 NaCl 25,000 unit In 0.45 % NaCl 1 250ml.bag @ 18 UNITS/KG/HR 13.064 mls/hr IV .Q19H9M OSMAN Rx#: [id number] Oral 720 240 Output: Urine 400 Other: Voiding Method Diaper # Voids 1 1 1 # Bowel Movements 1 - Exam Physical Examination General: non toxic, mild distress secondary to respiratory distress with increased oxygenation requirements, appears at stated age Derm: warm, dry Head: atraumatic, normocephalic, symmetric Eyes: EOMI, no lid lag, anicteric sclera Mouth: Patient with high flow nasal cannula at 15 L along with 15 L NRB mask at this time. Cardiovascular: S1S2 reg, no murmur, positive posterior tibial pulses bilaterally, no peripheral edema. Lungs: Lungs with mild expiratory wheezes bilaterally and crackles RRL and diminished lungs LLL posteriorly. Abdominal: soft, nontender to palpation, no guarding, no appreciable organomegaly Ext: no gross muscle atrophy, no edema, no contractures Neuro: CN II-XI grossly intact, no focal neuro deficits Psych: Alert, oriented to person, place and time, appropriate affect - Labs CBC & Chem 7: 12/03/20 06:55 11/30/20 09:22 Labs: Abnormal Lab Results - Last 24 Hours (Table) 12/02/20 12/02/20 12/03/20 Range/Units 17:00 19:57 06:28 WBC (3.8-10.6) k/uL RBC (3.80-5.40) m/uL Hgb (11.4-16.0) gm/dL Neutrophils # (1.3-7.7) k/uL Lymphocytes # (1.0-4.8) k/uL APTT (22.0-30.0) sec POC Glucose (mg/dL) 179 H 140 H 108 H (75-99) mg/dL 12/03/20 12/03/20 12/03/20 Range/Units 06:55 06:55 11:48 WBC 12.7 H (3.8-10.6) k/uL RBC 3.74 L (3.80-5.40) m/uL Hgb 11.3 L (11.4-16.0) gm/dL Neutrophils # 11.9 H (1.3-7.7) k/uL Lymphocytes # 0.4 L (1.0-4.8) k/uL APTT 52.2 H (22.0-30.0) sec POC Glucose (mg/dL) 109 H (75-99) mg/dL Assessment and Plan Assessment: Acute respiratory failure with hypoxia secondary to COVID 19 pneumonia and bilateral pulmonary emboli -CTA revealing significant bilateral pulmonary emboli with suggestion of right ventricular strain. Worsening bilateral multifocal infiltrates with basilar organo-consolidations consistent with Covid 19 infection. -Patient diagnosed with Covid 19 virus infection on 11/19/20 -Patient is currently on 15 L high flow nasal cannula along with 15 L nonrebreather. We will continue oxygenation is needed to maintain SpO2 equal to or greater than 92%. -Continue anticoagulation with IV heparin with the eventual treatment for her over to oral anticoagulant. -Continue Decadron 6 mg daily, today is day 4 of . -Initiate Covid cocktail with zinc, melatonin, vitamin D, and vitamin C. -Pulmonology is on board and recommending to continue present supportive care measures including Covid 19 cocktail along with IV heparin was plan to transition to [facility]. -Patient currently a DO NOT RESUSCITATE/DO NOT INTUBATE with yes to all medical interventions with the exception of CPR, intubation, and mechanical ventilation. Generalized weakness with fall and back pain -Patient had fall on 11/30/19 secondary to reports of weakness, Patient reports increased back pain but denies any injuries. Patient currently reports back pain is controlled at this time. -X-ray lumbar spine negative for acute process revealing scoliosis with severe multilevel degenerative disc disease. -Weakness likely secondary to Covid 19 virus infection accompanied by hypoxia resulting from Covid 19 pneumonia and bilateral pulmonary emboli. -Fall precautions in place. -Supportive care and provide assistance as needed. Hypertension: Monitor vital signs and continue daily medication management. History of dementia Supportive care and redirection as needed. Follow-up precautions. GERD: Continue with Protonix 40 mg daily before breakfast. CODE STATUS: DO NOT RESUSCITATE/DO NOT INTUBATE with yes to all medical interventions with the exception of CPR, intubation, and mechanical ventilation. DVT prophylaxis: Heparin per ACS protocol for acute PE Discussed plan of care with: Patient, Dr. Bone, and MINDY Teixeira A total of 35 minutes was spent on the care of this complex patient more than 50% of the time was spent in counseling and care coordination.
[2020-12-03 16:33] VITALS: BP 158/90; PULSE 93; RESP 22; TEMP 97.7
[2020-12-03 16:50] LABS: Glucose,Whole Blood 225 mg/dL (75-99)
[2020-12-03 19:57] LABS: Glucose,Whole Blood 137 mg/dL (75-99)
[2020-12-03] MEDS ORDERED: MELATONIN 5 MG TABLET PO SCH (21:00)
--- NOTE | 2020-12-04 08:55 | P.DS ---
Providers Date of admission: 11/30/20 12:27 Expected date of discharge: 12/03/20 Attending physician: Shayne Frias MD Consults: 11/30/20 14:05 Consult Physician Routine Consulting Provider: Enrike Suaoz Consult Reason/Comments: covid Do you want consulting provider notified?: Yes Primary care physician: Trudy Herron MD Hospital Course: Discharge Diagnosis: * Acute respiratory failure with hypoxia secondary to COVID 19 pneumonia and bilateral pulmonary emboli, resulting in * Generalized weakness with fall and back pain * Hypertension * History of dementia * GERD Hospital Course: Pt was an 85 year old female who was admitted to [facility] on 11/30/20 for acute respiratory failure with hypoxia secondary to Covid 19 pneumonia infection and bilateral pulmonary emboli. Patient was a DO NOT RESUSCITATE/DO NOT INTUBATE and being treated for bilateral PE's with a nticoagulant (per [facility] protocol for acute PE) and being treated for her acute respiratory failure with hypoxia and Covid 19 pneumonia with supplemental oxygenation (15L NRB and 15 L high-flow nasal canula), steroids, zinc, melatonin, vitamin D, and vitamin C per Covid protocol. On the evening of 12/03/20 pt's condition further deteriorated and she reportedly became hypoxic and bradycardic and later . Per nursing documentation, patient's time of was pronounced on 12/03/20 at 1957 p.m. Please refer to nursing documentation/note for further details. Plan - Discharge Summary Discharge Rx Participant: No New Discharge Prescriptions: Discontinued traZODone HCL [Desyrel] 50 mg PO HS@2000 Ibuprofen [Motrin] 600 mg PO BID@0800,1700 busPIRone HCL 15 mg PO TID@0700,1400,2100 Omeprazole 20 mg PO DAILY@0800 HYDROcodone/APAP 10-325MG [Armstrong 10-325] 1 tab PO Q8H PRN PRN Reason: Pain Aspirin [Adult Low Dose Aspirin EC] 81 mg PO DAILY@0800 Furosemide [Lasix] 20 mg PO DAILY PRN PRN Reason: LEG SWELLING Acetaminophen [Tylenol] 325 - 650 mg PO Q6H PRN PRN Reason: Fever And/ Or Pain guaiFENesin-DM 100-10MG/5ML [Robitussin DM] 10 ml PO Q6H PRN PRN Reason: Cold Symptoms fentaNYL 12MCG/HR PATCH [Duragesic 12MCG/HR] 1 patch TRANSDERM Q72H Artificial Tears-Hypromellose [Artificial Tear Drops] 1 drop BOTH EYES TID PRN PRN Reason: Dry Eye(S) amLODIPine [Norvasc] 2.5 mg PO HS@2000 Gabapentin [Neurontin] 100 mg PO HS@2000 Tolterodine ER [Detrol LA] 4 mg PO HS@2000 ALPRAZolam [Xanax] 0.25 mg PO HS@2000 Memantine [Namenda] 10 mg PO BID@0800,2000 Metoprolol Tartrate [Lopressor] 25 mg PO BID@0800,1700 Multivitamins, Thera [Multivitamin (formulary)] 1 tab PO DAILY@0800 polyethylene glycoL 3350 [Miralax] 17 gm PO DAILY@0800 Docusate [Colace] 200 mg PO DAILY@0800 Cyanocobalamin (Vitamin B-12) [Vitamin B-12] 1,000 mcg PO DAILY@0800 Benzonatate [Tessalon Perles] 200 mg PO TID PRN PRN Reason: Cough Discharge Disposition: - Preliminary Cause of Preliminary Cause of : Repiratory Failure
[2020-12-04] MEDS ORDERED: CHOLECALCIFEROL 1,000 UNIT TAB PO SCH (09:00)
[2020-12-04] MEDS ORDERED: ZINC SULFATE 220 MG CAP PO SCH (09:00)
[2020-12-04] MEDS ORDERED: ASCORBIC ACID 500 MG TAB PO SCH (09:00)
== END 2020-12-03 21:31 | disposition expired | DRG 177 ==
LOC: EC 08:39 → 3SCARD 12:27
PROVIDERS: ADMIT Internal Medicine; ATTEND Internal Medicine
PROC: 5A0945A Assistance with Respiratory Ventilation, 24-96 Consecutive Hours, High Flow/Velocity Cannula (ICD-10-PCS; principal; 2020-12-01)
DX: U07.1 COVID-19 (principal); J12.82 Pneumonia due to coronavirus disease 2019; I26.09 Other pulmonary embolism with acute cor pulmonale; J96.01 Acute respiratory failure with hypoxia; F03.90 Unspecified dementia, unspecified severity, without behavioral disturbance, psychotic disturbance, mood disturbance, and anxiety; S09.90XA Unspecified injury of head, initial encounter; I11.9 Hypertensive heart disease without heart failure; Z66 Do not resuscitate; Z51.5 Encounter for palliative care; M54.5 Low back pain; K21.9 Gastro-esophageal reflux disease without esophagitis; F41.9 Anxiety disorder, unspecified; H35.30 Unspecified macular degeneration; K58.9 Irritable bowel syndrome, unspecified; M41.9 Scoliosis, unspecified; M51.36 Other intervertebral disc degeneration, lumbar region; M19.90 Unspecified osteoarthritis, unspecified site; Z79.82 Long term (current) use of aspirin; Z79.1 Long term (current) use of non-steroidal anti-inflammatories (NSAID); Z79.891 Long term (current) use of opiate analgesic; Z79.899 Other long term (current) drug therapy; Z86.73 Personal history of transient ischemic attack (TIA), and cerebral infarction without residual deficits; Z90.49 Acquired absence of other specified parts of digestive tract; Z87.19 Personal history of other diseases of the digestive system; Z85.3 Personal history of malignant neoplasm of breast; Z92.21 Personal history of antineoplastic chemotherapy; Z87.448 Personal history of other diseases of urinary system; Z90.710 Acquired absence of both cervix and uterus; Z87.42 Personal history of other diseases of the female genital tract; Z98.51 Tubal ligation status; Z98.42 Cataract extraction status, left eye; Z98.41 Cataract extraction status, right eye; Z96.1 Presence of intraocular lens; Z90.12 Acquired absence of left breast and nipple; Z98.890 Other specified postprocedural states; W06.XXXA Fall from bed, initial encounter; Y92.003 Bedroom of unspecified non-institutional (private) residence as the place of occurrence of the external cause; Z82.5 Family history of asthma and other chronic lower respiratory diseases; Z82.3 Family history of stroke; Z81.2 Family history of tobacco abuse and dependence; Z83.79 Family history of other diseases of the digestive system
CPT/HCPCS: 36415; 70450; 71275; 72100; 72125; 80053; 82728; 83605; 83615; 83735; 84145; 84484; 85025; 85379; 85610; 85730; 86140; 93005; 94640; 94760; 96361; 96365; 96366; 96375; 96376; 99291